=== PATIENT | female | born 1955 | race Caucasian/White ===

== ENCOUNTER → 2020-01-10 16:37 | Outpatient (CLI) | payer OTHER, SELFPAY ==
[2014-01-19 12:27] VITALS: BMI 39.7
--- NOTE | 2020-01-10 16:53 | RAD_ITS ---
STUDY: X-RAY - CERVICAL SPINE REASON FOR EXAM: Female, 64 years old. Fall TECHNIQUE: 4 view(s) of the cervical spine were obtained. COMPARISON: None FINDINGS: There is no evidence of fracture or dislocation in the cervical spine. The dens is intact. The vertebral body heights are well-maintained. There are mild degenerative changes with disc space narrowing and small osteophytes at C4/C5 and C5/C6. The prevertebral soft tissues are unremarkable. There is no radiodense foreign body. RAD/Cerv Spine 2 or 3 Views IMPRESSION: No fracture or dislocation in the cervical spine. Mild degenerative changes in the midcervical spine. Electronically Signed: Hussein Saldivar, at 17:55 EDT Tel , Service support ,
--- NOTE | 2020-01-10 17:00 | RAD_ITS ---
STUDY: X-RAY - RIGHT SHOULDER REASON FOR EXAM: Female, 64 years old. Fall TECHNIQUE: 4 view(s) of the shoulder. COMPARISON: None. FINDINGS: There is no evidence of fracture or dislocation. There are mild degenerative changes. There are no radiodense foreign bodies. RAD/Shoulder min 2 Views IMPRESSION: No fracture or dislocation in the right shoulder. Mild degenerative change. Electronically Signed: Hussein Saldivar, at 17:56 EDT Tel , Service support ,
[2020-01-10 17:04] LABS: Absolute Lymphocyte Count 1.72 X10^3/uL (0.83-4.51); Absolute Neutrophil Count 2.8 X10^3/uL (2.0-7.7); Basophil# 0.04 X10^3/uL; Basophil% 0.8 % (0-1); Eosinophil# 0.06 X10^3/uL; Eosinophils% 1.2 % (0-5); Hematocrit 34.8 % (37-47); Hemoglobin 10.6 g/dL (12.0-15.0); Lymphocyte # 1.72 X10^3/ul (4.0); Lymphocyte % 34.4 % (19-41); Mean Corp Hgb Conc 30.5 g/dL (32-36); Mean Corpuscular Hgb 25.7 pg (27.0-32.0); Mean Corpuscular Volume 84.3 fL (81-99); Mean Platelet Vol. 9.9 fl (6.2-12.0); Monocyte# 0.34 X10^3/uL; Monocyte% 6.8 % (0-10); NRBC Flagged by Analyzer 0 % (0-5); Neutrophil # 2.82 X10^3/uL (2.7-7.7); Neutrophil % 56.4 % (47-70); Platelet Count 291 K/mm3 (150-450); RBC Distribution Width CV 14.6 % (11.6-14.6); RBC Distribution Width SD 44.3 fl (35.1-43.9); Red Blood Count 4.13 M/mm3 (4.2-5.4)
[2020-01-10 18:09] LABS: ALB/GLOB Ratio 0.9 RATIO (0.9-2.4); AST(SGOT) 13 U/L (15-37); Alanine Aminotransfer ALT/SGPT 18 U/L (13-56); Albumin, Serum 3.6 g/dL (3.2-5.0); Alkaline Phosphatase 99 U/L (45-117); Anion Gap 8 (5-15); BUN 17 mg/dL (7-18); Calcium,Total 8.7 mg/dL (8.5-10.1); Chloride 106 mmol/L (98-107); Creatinine, Serum 1.13 mg/dL (0.55-1.02); EST Glomerular Filtration Rate 52 mL/min (>60); Est Glom Filt Rate - Afr Amer 63 mL/min (>60); Globulin 3.9 g/dL (2.2-4.2); Glucose 111 mg/dL (74-106); Potassium 3.7 mmol/L (3.5-5.1); Protein, Total 7.5 g/dL (6.4-8.2); Sodium Level 140 mmol/L (136-145); Thyroid Stim Hormone (TSH) 2.06 uIU/mL (0.358-3.74)
[2020-01-11 10:52] LABS: Hepatitis C Antibody Non-Reactive (Nonreactive); Vitamin D,25 Hydroxy 14.1 ng/mL
== END ==
LOC: POLAB3 16:40 → RAD 16:52
PROVIDERS: PCP Family Medicine Geriatric Medicine; Referring Provider Family Medicine Geriatric Medicine; Visit Provider Family Medicine Geriatric Medicine
DX: M54.2 Cervicalgia (principal); M25.519 Pain in unspecified shoulder; E55.9 Vitamin D deficiency, unspecified; I10 Essential (primary) hypertension; Z13.89 Encounter for screening for other disorder
CPT/HCPCS: 36415; 72040; 73030; 80053; 82306; 84443; 85025; 86803

== ENCOUNTER → 2020-01-11 | Outpatient (CLI) | payer OTHER, SELFPAY ==
--- NOTE | 2020-01-11 09:59 | CT_ITS ---
STUDY: CT BRAIN WITHOUT CONTRAST REASON FOR EXAM: Female, 64 years old. CLOSED HEAD INJURY. FALL 7 WEEKS AGO RADIATION DOSAGE (If Supplied By Facility): CTDIvol = ( 44.99 ) mGy, DLP = ( 829.85 ) mGycm TECHNIQUE: Transaxial CT imaging of the brain was performed without administration of intravenous contrast material. Individualized dose optimization techniques were used for this CT. COMPARISON: No relevant priors. FINDINGS: Normal soft tissue structures. Normal calvarium. There is mild cerebral atrophy with widening of the extra-axial spaces and ventricular dilatation. Normal white matter tracts of the cerebral hemispheres. Normal basal ganglia and thalami. Normal brainstem. Normal cerebellum. There is no intracranial hemorrhage. There are no findings of an acute ischemic infarction. Normal visualized paranasal sinuses. CT/Brain/Head without Contrast IMPRESSION: Chronic involutional changes of the brain. Electronically Signed: Sascha Hernandez, at 10:30 EDT , Service support ,
[2020-01-11 12:33] LABS: Platelet Count 338 K/mm3 (150-450); Reticulocyte Count 1.17 % (0.5-1.5)
[2020-01-11 12:48] LABS: Vitamin B12 436 pg/mL (211-911)
[2020-01-11 13:11] LABS: Ferritin 5 ng/mL (8-252); Iron 22 ug/dL (50-170); Iron Binding Capacity,Total 497 ug/dL (250-450); PERCENT IRON SATURATION 4.4 % (15.0-55.0)
== END | disposition home or self-care (01) ==
PROVIDERS: PCP Family Medicine Geriatric Medicine; Referring Provider Family Medicine Geriatric Medicine; Visit Provider Family Medicine Geriatric Medicine
DX: D50.9 Iron deficiency anemia, unspecified (principal); S09.90XA Unspecified injury of head, initial encounter
CPT/HCPCS: 36415; 70450; 82607; 82728; 82746; 83540; 83550; 85045

== ENCOUNTER → 2020-01-30 14:13 | Outpatient (CLI) | payer OTHER, SELFPAY ==
[2014-01-19 12:27] VITALS: BMI 39.7
--- NOTE | 2020-01-30 11:58 | LES_PTH ---
PATIENT: SHAHEEN JARRELL LOC: [facility] U#:[id number] AGE/SX: 69/F ROOM: RE01/30/[address]: Dr. Amrik Queen MD : 1955 BED: DIS: SPEC #: [id number] RECD: 01/30/20 16:54 STATUS: LONNY ESSIE #: [id number] NEPTALI: 01/30/20 11:[address]: Amrik Queen Chi DEPT: SURGICAL PATHOLOGY RECD BY: Maria Schaffer Tissues: Skin of chest Procedures: Surgery Specimen Level IV HEADER OPERATION: Biopsy PRE-OP DIAGNOSIS: L72.3 TISSUE SUBMITTED: Chest MICROSCOPIC DIAGNOSIS Skin lesion of chest, biopsy: Invasive squamous cell carcinoma with the follow characteristics: Type: Keratoacanthomatous. Maximal dimensions: 7 millimeters Margins: Lesion transected at base. See comment. AM:alexi 02/01/20 COMMENT Complete excision of lesion is recommended. Clinical correlation is suggested. MICROSCOPIC DESCRIPTION Slides are reviewed. GROSS DESCRIPTION Received in fixative is one container labeled with the patient's name and designated chest. The specimen consists of a round piece of membreno-white skin measuring 1 cm in diameter and 0.2 cm in thickness. The specimen is inked and submitted entirely in one cassette. It will be sectioned at the time of embedding. / SJ:rg 01/31/20 TC:0 CPT: 45835
[2020-01-30 17:11] LABS: Absolute Lymphocyte Count 2.25 X10^3/uL (0.83-4.51); Absolute Neutrophil Count 4.4 X10^3/uL (2.0-7.7); Basophil# 0.03 X10^3/uL; Basophil% 0.4 % (0-1); Eosinophil# 0.04 X10^3/uL; Eosinophils% 0.6 % (0-5); Hematocrit 35.3 % (37-47); Hemoglobin 10.6 g/dL (12.0-15.0); Lymphocyte # 2.25 X10^3/ul (4.0); Lymphocyte % 31.3 % (19-41); Mean Corpuscular Volume 83.3 fL (81-99); Mean Platelet Vol. 10.3 fl (6.2-12.0); Monocyte# 0.42 X10^3/uL; Monocyte% 5.8 % (0-10); NRBC Flagged by Analyzer 0 % (0-5); Neutrophil # 4.44 X10^3/uL (2.7-7.7); Neutrophil % 61.8 % (47-70); Platelet Count 317 K/mm3 (150-450); RBC Distribution Width CV 15.2 % (11.6-14.6); RBC Distribution Width SD 45.7 fl (35.1-43.9); Red Blood Count 4.24 M/mm3 (4.2-5.4); White Blood Count 7.2 K/mm3 (4.4-11.0)
== END ==
PROVIDERS: PCP Family Medicine Geriatric Medicine; Visit Provider Family Medicine Geriatric Medicine
DX: D50.9 Iron deficiency anemia, unspecified (principal); L72.3 Sebaceous cyst
CPT/HCPCS: 36415; 85025; 88305

== ENCOUNTER → 2020-03-05 12:18 | Outpatient (CLI) | payer OTHER, SELFPAY ==
[2014-01-19 12:27] VITALS: BMI 39.7
[2020-03-05 12:58] LABS: Absolute Lymphocyte Count 1.59 X10^3/uL (0.83-4.51); Absolute Neutrophil Count 3.7 X10^3/uL (2.0-7.7); Basophil# 0.06 X10^3/uL; Eosinophil# 0.03 X10^3/uL; Eosinophils% 0.5 % (0-5); Hemoglobin 12.5 g/dL (12.0-15.0); Lymphocyte # 1.59 X10^3/ul (4.0); Lymphocyte % 27.6 % (19-41); Mean Corp Hgb Conc 32.1 g/dL (32-36); Mean Corpuscular Volume 84.2 fL (81-99); Mean Platelet Vol. 9.7 fl (6.2-12.0); Monocyte# 0.37 X10^3/uL; Monocyte% 6.4 % (0-10); NRBC Flagged by Analyzer 0 % (0-5); Neutrophil # 3.69 X10^3/uL (2.7-7.7); POSITIVE MORPHOLOGY YES; Platelet Count 255 K/mm3 (150-450); RBC Distribution Width CV 21.2 % (11.6-14.6); RBC Distribution Width SD 59.4 fl (35.1-43.9); Red Blood Count 4.63 M/mm3 (4.2-5.4); White Blood Count 5.8 K/mm3 (4.4-11.0)
[2020-03-05 12:59] LABS: Differential Indicated SCAN CRITERIA MET
[2020-03-05 13:27] LABS: Anisocytosis 1+; Platelet Estimate ADEQUATE (ADEQ); Red Cell Morphology N CHROM NORMAL (NORM C&C)
== END ==
PROVIDERS: PCP Family Medicine Geriatric Medicine; Visit Provider Family Medicine Geriatric Medicine
DX: D50.9 Iron deficiency anemia, unspecified (principal)
CPT/HCPCS: 36415; 85025

== ENCOUNTER → 2020-04-11 13:58 | Outpatient (CLI) | payer OTHER, SELFPAY ==
[2014-01-19 12:27] VITALS: BMI 39.7
[2020-04-11 15:40] LABS: Ferritin 5 ng/mL (8-252); Iron 30 ug/dL (50-170)
[2020-04-13 16:08] LABS: Endomysial Antibody IgA Negative (Negative)
[2020-04-13 17:42] LABS: Immunoglobulin A 358 mg/dL (87-352); t-Transglutaminase IgA <2 U/mL (0-3)
== END ==
PROVIDERS: PCP Family Medicine Geriatric Medicine; Referring Provider Internal Medicine Gastroenterology; Visit Provider Internal Medicine Gastroenterology
DX: D50.9 Iron deficiency anemia, unspecified (principal)
CPT/HCPCS: 36415; 82728; 82784; 83516; 83540; 86255

== ENCOUNTER → 2020-04-19 13:18 | Outpatient (CLI) | payer OTHER, SELFPAY ==
[2014-01-19 12:27] VITALS: BMI 39.7
[2020-04-19 17:16] LABS: Absolute Lymphocyte Count 1.94 X10^3/uL (0.83-4.51); Absolute Neutrophil Count 3.8 X10^3/uL (2.0-7.7); Basophil# 0.04 X10^3/uL; Basophil% 0.6 % (0-1); Eosinophil# 0.08 X10^3/uL; Eosinophils% 1.3 % (0-5); Hematocrit 39.4 % (37-47); Hemoglobin 11.8 g/dL (12.0-15.0); Lymphocyte # 1.94 X10^3/ul (4.0); Lymphocyte % 31.1 % (19-41); Mean Corp Hgb Conc 29.9 g/dL (32-36); Mean Corpuscular Hgb 26.2 pg (27.0-32.0); Mean Corpuscular Volume 87.4 fL (81-99); Mean Platelet Vol. 10.2 fl (6.2-12.0); Monocyte# 0.38 X10^3/uL; Monocyte% 6.1 % (0-10); NRBC Flagged by Analyzer 0 % (0-5); Neutrophil # 3.79 X10^3/uL (2.7-7.7); Neutrophil % 60.7 % (47-70); Platelet Count 289 K/mm3 (150-450); RBC Distribution Width CV 18.2 % (11.6-14.6); RBC Distribution Width SD 58.3 fl (35.1-43.9); Red Blood Count 4.51 M/mm3 (4.2-5.4); White Blood Count 6.2 K/mm3 (4.4-11.0)
[2020-04-19 17:47] LABS: ALB/GLOB Ratio 0.9 RATIO (0.9-2.4); AST(SGOT) 11 U/L (15-37); Alanine Aminotransfer ALT/SGPT 20 U/L (13-56); Albumin, Serum 3.3 g/dL (3.2-5.0); Alkaline Phosphatase 104 U/L (45-117); Anion Gap 5 (5-15); BUN 18 mg/dL (7-18); BUN/Creat Ratio 17.8 RATIO (10-20); Calcium,Total 8.8 mg/dL (8.5-10.1); Chloride 107 mmol/L (98-107); Creatinine, Serum 1.01 mg/dL (0.55-1.02); EST Glomerular Filtration Rate 59 mL/min (>60); Est Glom Filt Rate - Afr Amer 71 mL/min (>60); Globulin 3.6 g/dL (2.2-4.2); Glucose 116 mg/dL (74-106); Potassium 3.9 mmol/L (3.5-5.1); Protein, Total 6.9 g/dL (6.4-8.2); Sodium Level 140 mmol/L (136-145); Thyroid Stim Hormone (TSH) 1.52 uIU/mL (0.358-3.74)
== END ==
PROVIDERS: PCP Family Medicine Geriatric Medicine; Visit Provider Family Medicine Geriatric Medicine
DX: I10 Essential (primary) hypertension (principal)
CPT/HCPCS: 36415; 80053; 84443; 85025

== ENCOUNTER → 2020-04-20 | Outpatient (CLI) | payer OTHER, SELFPAY ==
[2014-01-19 12:27] VITALS: BMI 39.7
== END | disposition home or self-care (01) ==
LOC: LABSPEC 17:23
PROVIDERS: PCP Family Medicine Geriatric Medicine; Referring Provider Internal Medicine Gastroenterology; Visit Provider Internal Medicine Gastroenterology
DX: Z11.52 Encounter for screening for COVID-19 (principal)
CPT/HCPCS: 87635; C9803; U0005; U0003

== ENCOUNTER → 2020-05-23 13:24 | Outpatient (CLI) | payer OTHER, SELFPAY ==
[2014-01-19 12:27] VITALS: BMI 39.7
[2020-05-23 17:28] LABS: Absolute Lymphocyte Count 1.82 X10^3/uL (0.83-4.51); Absolute Neutrophil Count 2.8 X10^3/uL (2.0-7.7); Basophil# 0.03 X10^3/uL; Basophil% 0.6 % (0-1); Eosinophil# 0.07 X10^3/uL; Eosinophils% 1.4 % (0-5); Hemoglobin 12.9 g/dL (12.0-15.0); Lymphocyte # 1.82 X10^3/ul (4.0); Lymphocyte % 35.5 % (19-41); Mean Corp Hgb Conc 30.7 g/dL (32-36); Mean Corpuscular Hgb 28.1 pg (27.0-32.0); Mean Corpuscular Volume 91.5 fL (81-99); Mean Platelet Vol. 10.2 fl (6.2-12.0); Monocyte# 0.39 X10^3/uL; Monocyte% 7.6 % (0-10); NRBC Flagged by Analyzer 0 % (0-5); Neutrophil # 2.81 X10^3/uL (2.7-7.7); Neutrophil % 54.7 % (47-70); Platelet Count 237 K/mm3 (150-450); RBC Distribution Width CV 15.9 % (11.6-14.6); RBC Distribution Width SD 53.4 fl (35.1-43.9); Red Blood Count 4.59 M/mm3 (4.2-5.4); White Blood Count 5.1 K/mm3 (4.4-11.0)
== END ==
PROVIDERS: PCP Family Medicine Geriatric Medicine; Visit Provider Family Medicine Geriatric Medicine
DX: D50.9 Iron deficiency anemia, unspecified (principal)
CPT/HCPCS: 36415; 85025

== ENCOUNTER → 2020-06-21 15:05 | Outpatient (CLI) | payer OTHER, SELFPAY ==
--- NOTE | 2020-06-21 15:09 | MRI_ITS ---
STUDY: MRI RIGHT SHOULDER REASON FOR EXAM: Right shoulder pain, unable to raise right arm, right shoulder injury from fall 9 months ago. TECHNIQUE: Standardized fat and water weighted pulse sequences were obtained in all 3 orthogonal planes. COMPARISON: Radiographs 01/10/2020. FINDINGS: There is a full-thickness tear of the supraspinatus tendon (T2 coronal images 12-14) measuring approximately 2.4 x 1.2 cm (length x width). There is tendinosis of the infraspinatus and posterior supraspinatus tendons (T2 sagittal images 8, 9) without discrete tear of the infraspinatus tendon. There is mild subscapularis tendinosis and a small intrasubstance partial thickness tear of the distal subscapularis tendon (proton-density axial image 14) measuring 0.6 cm in length. Normal teres minor tendon. There is mild atrophy with mild partial fat replacement of the supraspinatus muscle (T2 axial image 7). There is mild atrophy with mild partial fat replacement of the infraspinatus muscle (T2 axial images 10-12). Normal subscapularis muscle. Normal teres minor muscle. Normal glenohumeral articulation. There is mild cystic change of the greater tuberosity. There is a suspected SLAP lesion (proton-density coronal image 11). There is tendinosis of the intracapsular long biceps tendon (T2 sagittal images 12-16). Normal capsulo- ligamentous complex. There is acromioclavicular arthrosis with undersurface osteophytes of the distal clavicle effacing the subacromial fat (T2 sagittal image 15). There is a Type III morphology (anterior hook) (T2 sagittal image 11), with a neutral orientation. There is a small volume of subacromial-subdeltoid and subcoracoid bursal fluid. Normal visualized coracohumeral and coracoacromial ligaments. Normal deltoid muscle. Normal trapezius muscle. MRI/Upper Ext Joint Only(Routine) IMPRESSION: Full-thickness tear and tendinosis of the supraspinatus tendon. Small intrasubstance partial-thickness tear and mild tendinosis of the subscapularis tendon. Infraspinatus tendinosis. Mild atrophy of the supraspinatus and infraspinatus muscles. Tendinosis of the long biceps tendon. Suspected SLAP lesion. Acromioclavicular arthrosis. Small volume of subacromial-subdeltoid and subcoracoid bursal fluid. Electronically Signed: Jose Mckeon MD at 7:52 EDT Tel , Service support ,
== END ==
LOC: MRI 15:09
PROVIDERS: PCP Family Medicine Geriatric Medicine; Referring Provider Orthopaedic Surgery; Visit Provider Orthopaedic Surgery
DX: M25.311 Other instability, right shoulder (principal)
CPT/HCPCS: 73221

== ENCOUNTER 2020-07-17 10:08 | Day surgery (SDC) | payer OTHER, SELFPAY ==
[2020-07-13 09:39] LABS: Hematocrit 41.5 % (37-47); Hemoglobin 13.4 g/dL (12.0-15.0); Mean Corp Hgb Conc 32.3 g/dL (32-36); Mean Corpuscular Hgb 29.7 pg (27.0-32.0); Mean Platelet Vol. 10.2 fl (6.2-12.0); Platelet Count 260 K/mm3 (150-450); RBC Distribution Width CV 13.8 % (11.6-14.6); RBC Distribution Width SD 46.5 fl (35.1-43.9); Red Blood Count 4.51 M/mm3 (4.2-5.4); White Blood Count 5.3 K/mm3 (4.4-11.0)
--- NOTE | 2020-07-13 09:39 | EKG12_ITS ---
Test Reason : PREOP Blood Pressure : / mmHG Vent. Rate : 063 BPM Atrial Rate : 063 BPM P-R Int : 176 ms QRS Dur : 078 ms QT Int : 410 ms P-R-T Axes : 008 012 020 degrees QTc Int : 419 ms Normal sinus rhythm Normal ECG Confirmed by KALA JASMINE, ROSIO ([id number]), editorial cartoonist STEVEN SOLER ([id number]) on 07/16/2020 12:29:47 PM Referred By: Cyrus Nolasco Confirmed By:ROSIO ARMENDARIZ MD
[2020-07-13 09:50] LABS: Prothrombin Time (Protime)PT. 12.7 SECONDS (11.7-14.9)
[2020-07-13 09:51] LABS: Partial Thromboplast Time 25.6 Seconds (24.1-36.2)
[2020-07-17] VITALS (8 sets, daily range): BP systolic 95–132; BP diastolic 63–96; PULSE 81–88; RESP 16; TEMP 36–36.7; O2SAT 88–99; BMI 35.9
[2020-07-17] MEDS: Lactated Ringers 1,000 ML 100 ML IV (10:53)
--- NOTE | 2020-07-17 11:34 | CONS.ORTHO ---
HPI Consult Data Date of Consult: 07/17/20 HPI Narrative HPI Narrative: SHAHEEN JARRELL, is a 65 F who presents [facility] Medical History (Updated 07/12/20 @ 14:11 by Nora Iglesias) Anxiety CPAP (continuous positive airway pressure) dependence Depression GERD (gastroesophageal reflux disease) GI bleed Hiatal hernia HTN (hypertension) Post-menopausal Sleep apnea Ulcer Wears glasses Home Medications lisinopril-hydrochlorothiazide 1 tablet PO DAILY 01/04/14 [History Last Taken 07/17/20 08:00] pantoprazole [Protonix] 40 mg PO DAILY 01/04/14 [History Last Taken 07/17/20 08:00] citalopram 20 mg tablet 1 tablet PO DAILY 06/06/20 [History Last Taken 07/17/20 08:00] ferrous sulfate-vitamin C 1 cap PO DAILY 07/12/20 [History Last Taken Unknown] loperamide 2 mg PO DAILY 07/12/20 [History Last Taken Unknown] meloxicam [Mobic] 15 mg PO DAILY PRN 07/12/20 [History Last Taken Unknown] Allergy/AdvReac Type Severity Reaction Status Date / Time Sulfa (Sulfonamide AdvReac Severe itching Verified 07/17/20 10:48 Antibiotics) Surgical History (Updated 07/12/20 @ 14:04 by Nora Iglesias) History of cholecystectomy Hx of hysterectomy Hx of knee surgery Social History (Updated 07/04/20 @ 13:[address] Cyrus Nolasco, ) Smoking Status: Never smoker ROS Respiratory/Chest Respiratory/Chest: Denies shortness of breath at rest Gastrointestinal Gastrointestinal: Denies nausea or vomiting Integumentary Integumentary: Denies rash Neurologic Neurologic: Denies headache(s) Vital Signs Vital Signs Vital Signs: 07/17/20 10:41 Temperature 96.8 F L Temperature Source Temporal Pulse Rate 81 Respiratory Rate 16 Respiratory Pattern Normal Blood Pressure 132/96 H Blood Pressure Mean 108 Blood Pressure Source Monitor Blood Pressure Position Sitting Blood Pressure Location Left Arm Pulse Ox 99 Oxygen Delivery Method Room Air Lab / Micro Data Result Diagrams: 07/13/20 09:06
[2020-07-17] MEDS: Bupiv/Epi 0.25% 30 ML Vial (11:40)
--- NOTE | 2020-07-17 11:40 | PCM.HP.BLA ---
History and Physical Date of Admission: 07/17/20 [id number]:[id number]: SHAHEEN JARRELL #:[id number]:1955 Provider:Dr. Cyrus Nolasco DOAge/Sex: 65/F [facility] [place]Signed Intake Intake Visit Reasons: right shoulder Allergies Sulfa (Sulfonamide Antibiotics) Adverse Reaction (Severe, Verified 06/06/20 10:30) itching PFSH Medical History (Updated 06/06/20 @ 10:31 by Bety Day) HTN (hypertension) (Chronic) Surgical History (Updated 06/06/20 @ 10:31 by Bety Day) Hx of hysterectomy (Acute) Social History (Updated 07/04/20 @ 13:[address] Cyrus Nolasco DO) Smoking Status: Never smoker HPI right shoulder: Details: Parts of this documentation were recorded by a scribe, this documentation accurately reflects the service provided and the decisions made by me, Dr. Cyrus Nolasco DO 07/04/20 3680. SHAHEEN JARRELL is a 65 year old F here today for F/U on right shoulder after having MRI completed. Patient continues to have right shoulder pain over the lateral and anterior shoulder she states this pain occasionally radiated past the elbow and does radiate into her neck at times. She also states that cervical rotation does cause some pain into her arm at times. Pain as worsened. Ortho Exam General General: Yes no acute distress Neurologic: Yes alert, Yes oriented x3 Psychologic: Yes reasonable and appropriate Right Shoulder Skin/Wound: No ecchymosis, No erythema, No swelling Testing: Positive Neer's and TTP Biceps; negative TTP AC Joint SHOULDER: 90 active forward elevation full passive forward elevation 90 active abduction full passive abduction Supplemental Info 06/21/2020 MRI right shoulder: Full-thickness tear and tendinosis of supraspinatus small intrasubstance tearing of the subscapularis infraspinatus tendinosis mild atrophy of the supraspinatus and infraspinatus muscles tendinosis of the biceps with suspected SLAP tear AC joint arthrosis and subdeltoid bursitis Assessment & Plan Problems 1. Traumatic complete tear of right rotator cuff, subsequent encounter S46.011D 2. Tear of biceps tendon S46.219A 3. Impingement syndrome of right shoulder M75.41 4. Degenerative disc disease, cervical M50.30 Plan Obtained X-rays of patient's right shoulder and cervical spine. Personally reviewed x-rays. There is no obvious fracture, dislocation, or lucency noted. Personally reviewed patients MRI of the right shoulder. Patient educated that she does have arthritis under her collar bone along with a RTC tear which is torn off the bone along with some possible biceps tearing. She also may have a labrum tear which is the cause of the shoulder pain. Educated that she also has DDD of the cervical spine and this is cuasing some arm pain and some cervical pain. Recommended a right shoulder scope for RTC repair, biceps tenodesis and debridement but she would be unable to actively lift the shoulder for 6 weeks post op. She can also see pain management for cervical injection for the neck pain. Reviewed the pre-operative plans with the patient. Risks and benefits of the procedure were fully explained, including but not limited to infection, neurovascular injury, continued pain, arthritis, stiffness, need for further surgery, re-injury, DVT, PE, general risks of anesthesia, and loss of limb or life. The patient understands all the risks and does wish to proceed with written consent. She will have swelling after surgery in the arm and chest. We can provide her with a work note for limited use of right arm. Follow up 2 weeks post op or sooner if pain, swelling, numbness or associated symptoms, or concerns develop. All questions answered. Patient in agreement of plan. Coding Level of Care Code Off vis,est,level 3 Diagnoses Traumatic complete tear of right rotator cuff, subsequent encounter S46.011D Rotator cuff tear extent: complete Rotator cuff tear trauma status: traumatic Encounter type: subsequent encounter Tear of biceps tendon S46.219A Impingement syndrome of right shoulder M75.41 Degenerative disc disease, cervical M50.30 07/04/20 1343<Electronically signed by Cyrus Nolasco DO>Date Cyrus Nolasco DO I have re-examined the patient. There are no clinical changes since date of exam
--- NOTE | 2020-07-17 11:53 | EX.PCM.DISCH ---
Discharge Instructions Outpatient Procedure Reason For Visit: R SHLDR ARTHROSCOPY RC REPAIR SUBACROMIAL DECOMPRE Procedure: Total Knee Diet Discharge Diet: No restrictions Activity Discharge Activity: May Not Drive May shower in (days): 2 Ice area for (Minutes): 20 (every hour while awake.) Weight Bearing Status: Weight bearing as tolerated Keep extremity elevated above heart level: Operative Extremity Additional Activity Instructions:: Wear elastic stockings for 2 weeks after your surgery. Dressing / Incision Call your doctor if your incision/area has: Continuous Slow Oozing, Sudden Increased Bleeding, Increased Pain/ Swelling, Increased Redness and Foul Smelling Discharge Call your doctor if you observe: Fever of 101 or Higher, Coldness, Increased Pain, Numbness or Tingling, Change in Color, Calf discomfort and Uncontrolled pain Change Dressing in: 1 day (and daily as needed.) Follow Up Care Test Results: Test results from this visit will be discussed in further detail at your follow-up appointment, if applicable. Discharge Plan Admission Attending Provider: Cyrus Nolacso Primary Care Provider: Amrik Queen Chi Consulting Providers: Clemente Gao Discharge Orders/Prescriptions Prescriptions: No Action citalopram 20 mg tablet 1 tablet PO DAILY RF: 0 lisinopril-hydrochlorothiazide 1 TABLET tablet 1 tablet PO DAILY RF: 0 pantoprazole [Protonix] 40 MG tablet 40 mg PO DAILY RF: 0 loperamide 2 mg capsule 2 mg PO DAILY RF: 0 meloxicam [Mobic] 15 mg tablet 15 mg PO DAILY PRN (Reason: Pain) RF: 0 ferrous sulfate-vitamin C 65-150 mg Capsule, Extended Release 1 cap PO DAILY RF: 0 Other Ambulatory Orders: 12 Lead EKG (Routine) Location: None Selected Ordered By: Dr. Clemente Gao Referrals: Amrik Queen Chi, MD [Primary Care Provider] -
[2020-07-17] MEDS: Epinephrine (1 mg/ml) 1 MG/ML VIAL (12:11)
[2020-07-17] MEDS: Cefazolin 2 GM in 0.9% Normal Saline 100 ML IV (12:11)
--- NOTE | 2020-07-17 13:56 | OP.PCM_ITS ---
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 anterior acromial spurring. Procedure: Arthroscopic subscapularis and supraspinatus rotator cuff repair, biceps tenotomy, labral debridement, SAD, Implants: Arthrex speed bridge 4 anchor pair, plus 4.5x28 pushlock Anesthesia: General with interscalane block EBL: 25 cc Complications none Indication for procedure: This is a 65 year old female with ongoing right should er pain and weakness who has failded conservative treatment who had an MRI of rotator cuff tear and aforementioned findings risks benefits and alternatives of the procedure were reviewed including risk of bleeding infection nerve artery tissue damage need for further surgery continued pain postoperative stiffness and need for postoperative physical therapy and continued pain and retear. Procedure: Patient was met in the preoperative holding area the operative extremity was identified by both the patient and the physician and was marked. Patient was met by anesthesia and brought back to the operating room on a wheeled cart. Patient was transferred to the operating table in the supine position. Anesthesia was started. Patient was then positioned in the beach chair configuration. Bony prominences were well-padded. The patient was prepped and draped in the usual sterile fashion. A timeout was called to ensure the proper patient procedure and extremity were being contemplated. Anatomic landmarks were palpated and marked with a marking pen. A 0.25% Marcaine with epinephrine was injected into the planned portal sites. An 11 blade scalpel was used to make a stab incision in the posterior lateral portal. Arthroscope was inserted into the glenohumeral space with ease. Inflow and outflow tubes were attached and arthroscopic visualization began. An anterior portal was esta blished with an 18-gauge spinal needle. There was significant cartilage wear of the humeral head and glenoid in addition there was significant degenerative tearing of the labrum and tendinopathy of the biceps tendon. With the use of the ArthroCare wand a biceps tenotomy was performed. The upper border of the subscapularis had some tearing and it was felt best to be repaired with a 4.5 push lock in a cinch stitch the rotator cuff was evaluated and was found to have a full-thickness tear of supraspinatus . The axillary pouch was investigated and was free of loose bodies. The arthroscope was then repositioned into the subacromial space and a lateral portal was established. A subacromial decompression with an ArthroCare wand and shaver/humphrey was performed. There was noted to be anterior spurring of the acromion which was burred to create a flat surface. Performing an anterior acromioplasty. [The bursal side of the rotator cuff was evaluated . Using standard speed bridge fashion 2 medial anchors were placed passes of the rotator cuff were performed then in standard fashion the posterior limb of each of these anchors were secured to a posterior lateral anchor and were tapped into place under tension this was repeated for the anterior 2 limbs. Excellent repair was achieved. The wound was thoroughly irrigated through the scope followed by a subacromial injection with and 8 cc of 0.5% Marcaine plain. Suture portals were closed with 3-0 nylon arthroscopic stitches followed by Xeroform 4 x 4 ABD and a Ioban dressing. A abduction sling and pillow was placed. Anesthesia was reversed and patient tolerated the procedure well was and was transferred to the PACU. All counts were correct patient will follow-up in the office in 2 weeks . Patient may begin active elbow and wrist range of motion and pendulums of the shoulder but no active shoulder motion, dressing is to be left on for 48 hours before being changed daily after showering Description of Surgical Findings::
--- NOTE | 2020-07-17 14:14 | PCM.DC ---
Discharge Instructions Outpatient Procedure Reason For Visit: R SHLDR ARTHROSCOPY RC REPAIR SUBACROMIAL DECOMPRE Diet Discharge Diet: No restrictions Dressing / Incision Additional Dressing/Incision Instructions:: Leave the dressing on and intact for 48 hours. . Then may remove and shower with warm water and antibacterial soap. But do not submerge in tub for 3 weeks. Ice shoulder 15 min on and 15 mins off next 72 hrs. May remove sling for elbow range of motion and pendulum exercises only then replace sling. Absolutely no active shoulder motion. Do not lift push pull at all with operative extremity . Encourage finger and wrist range of motion. Doxycycline antibiotic has been shown to aid in rotator cuff healing please take as directed . If any concerns call Dr. Nolasco's office. Follow Up Care Please Follow Up With: Cyrus Nolasco DO When: 2 weeks Test Results: Test results from this visit will be discussed in further detail at your follow-up appointment, if applicable. Discharge Plan Admission Attending Provider: Cyrus Nolasco Primary Care Provider: Amrik Queen Chi Consulting Providers: Clemente Gao Discharge Orders/Prescriptions Prescriptions: New oxycodone 5 mg capsule 5 - 10 mg PO Q4H PRN (Reason: pain) 7 Days Qty: 50 RF: 0 No Action citalopram 20 mg tablet 1 tablet PO DAILY RF: 0 lisinopril-hydrochlorothiazide 1 TABLET tablet 1 tablet PO DAILY RF: 0 pantoprazole [Protonix] 40 MG tablet 40 mg PO DAILY RF: 0 loperamide 2 mg capsule 2 mg PO DAILY RF: 0 meloxicam [Mobic] 15 mg tablet 15 mg PO DAILY PRN (Reason: Pain) RF: 0 ferrous sulfate-vitamin C 65-150 mg Capsule, Extended Release 1 cap PO DAILY RF: 0 Other Ambulatory Orders: 12 Lead EKG (Routine) Location: None Selected Ordered By: Dr. Clemente Gao Referrals: Amrik Queen Chi, MD [Primary Care Provider] - Disposition Discharge Orders: Discharge Patient (Routine); Ordered 07/17/20 Ordered By: Dr. Cyrus Nolasco
[2020-07-17] MEDS: Cefazolin 1 GM/50 ML BAG IV (15:56)
== END 2020-07-17 16:15 | disposition home or self-care (01) ==
LOC: SDC 10:09 → AC 10:09
PROVIDERS: Anesthesiology; PCP Family Medicine Geriatric Medicine; Referring Provider Orthopaedic Surgery; Visit Provider Orthopaedic Surgery
PROC: (CPT 29827; principal; 2020-07-17 11:55)
DX: S43.431A Superior glenoid labrum lesion of right shoulder, initial encounter (principal); S46.011A Strain of muscle(s) and tendon(s) of the rotator cuff of right shoulder, initial encounter; S46.211A Strain of muscle, fascia and tendon of other parts of biceps, right arm, initial encounter; M94.211 Chondromalacia, right shoulder; M75.41 Impingement syndrome of right shoulder; M50.30 Other cervical disc degeneration, unspecified cervical region; I10 Essential (primary) hypertension; F41.9 Anxiety disorder, unspecified; F32.9 Major depressive disorder, single episode, unspecified; K21.9 Gastro-esophageal reflux disease without esophagitis; Z79.899 Other long term (current) drug therapy
CPT/HCPCS: 01630; 29826; 29827; 29828; 36415; 85027; 85610; 85730; 93005; J7120; J2405

== ENCOUNTER → 2020-10-24 12:01 | Outpatient (CLI) | payer OTHER, SELFPAY ==
[2020-07-17 10:41] VITALS: BMI 35.9
[2020-10-24 12:43] LABS: Absolute Lymphocyte Count 1.93 X10^3/uL (0.83-4.51); Absolute Neutrophil Count 4.7 X10^3/uL (2.0-7.7); Basophil# 0.04 X10^3/uL; Basophil% 0.6 % (0-1); Eosinophil# 0.05 X10^3/uL; Eosinophils% 0.7 % (0-5); Hematocrit 44.4 % (37-47); Hemoglobin 14.2 g/dL (12.0-15.0); Lymphocyte # 1.93 X10^3/ul (0.83-4.51); Lymphocyte % 27.2 % (19-41); Mean Corpuscular Hgb 29.6 pg (27.0-32.0); Mean Corpuscular Volume 92.7 fL (81-99); Mean Platelet Vol. 10.8 fl (6.2-12.0); Monocyte# 0.37 X10^3/uL; Monocyte% 5.2 % (0-10); NRBC Flagged by Analyzer 0 % (0-5); Neutrophil # 4.68 X10^3/uL (2.7-7.7); Platelet Count 224 K/mm3 (150-450); RBC Distribution Width CV 13.5 % (11.6-14.6); RBC Distribution Width SD 46.7 fl (35.1-43.9); Red Blood Count 4.79 M/mm3 (4.2-5.4); White Blood Count 7.1 K/mm3 (4.4-11.0)
[2020-10-24 13:26] LABS: ALB/GLOB Ratio 0.8 RATIO (0.9-2.4); AST(SGOT) 9 U/L (15-37); Alanine Aminotransfer ALT/SGPT 18 U/L (13-56); Albumin, Serum 3.4 g/dL (3.2-5.0); Alkaline Phosphatase 116 U/L (45-117); Anion Gap 6 (5-15); BUN 15 mg/dL (7-18); Calcium,Total 8.8 mg/dL (8.5-10.1); Chloride 109 mmol/L (98-107); Creatinine, Serum 0.94 mg/dL (0.55-1.02); EST Glomerular Filtration Rate 64 mL/min (>60); Est Glom Filt Rate - Afr Amer 77 mL/min (>60); Globulin 4.1 g/dL (2.2-4.2); Glucose 111 mg/dL (74-106); Protein, Total 7.5 g/dL (6.4-8.2); Sodium Level 141 mmol/L (136-145); Thyroid Stim Hormone (TSH) 1.22 uIU/mL (0.358-3.74)
== END ==
PROVIDERS: PCP Family Medicine Geriatric Medicine; Visit Provider Family Medicine Geriatric Medicine
DX: I10 Essential (primary) hypertension (principal); N39.0 Urinary tract infection, site not specified
CPT/HCPCS: 36415; 80053; 84443; 85025; 87086; 87088; 87186

== ENCOUNTER → 2021-02-04 15:13 | Outpatient (CLI) | payer OTHER, SELFPAY ==
[2021-02-04 15:37] LABS: Absolute Lymphocyte Count 2.15 X10^3/uL (0.83-4.51); Absolute Neutrophil Count 3.6 X10^3/uL (2.0-7.7); Basophil# 0.04 X10^3/uL; Basophil% 0.6 % (0-1); Eosinophil# 0.07 X10^3/uL; Eosinophils% 1.1 % (0-5); Hematocrit 40.5 % (37-47); Hemoglobin 13.4 g/dL (12.0-15.0); Lymphocyte # 2.15 X10^3/ul (0.83-4.51); Lymphocyte % 34.8 % (19-41); Mean Corp Hgb Conc 33.1 g/dL (32-36); Mean Corpuscular Hgb 30.2 pg (27.0-32.0); Mean Corpuscular Volume 91.4 fL (81-99); Mean Platelet Vol. 10.1 fl (6.2-12.0); Monocyte# 0.33 X10^3/uL; Monocyte% 5.3 % (0-10); NRBC Flagged by Analyzer 0 % (0-5); Neutrophil # 3.58 X10^3/uL (2.7-7.7); Platelet Count 259 K/mm3 (150-450); RBC Distribution Width CV 12.9 % (11.6-14.6); RBC Distribution Width SD 43.3 fl (35.1-43.9); Red Blood Count 4.43 M/mm3 (4.2-5.4); White Blood Count 6.2 K/mm3 (4.4-11.0)
--- NOTE | 2021-02-04 16:06 | RAD_ITS ---
STUDY: X-RAY - RIGHT KNEE REASON FOR EXAM: Female, 65 years old. Knee pain. TECHNIQUE: 3 view(s) of the knee. COMPARISON: None. FINDINGS: Osteopenia. Mild medial compartmental arthrosis with small osteophytes. Mild arthrosis of the lateral compartment. Moderate arthrosis of the patellofemoral compartment. The soft tissue structures are unremarkable. RAD/Knee 3 Views IMPRESSION: Osteopenia with tricompartmental arthrosis. No acute finding or erosive changes. Electronically Signed: Bin Bianchi MD at 10:18 EST , Service support ,
[2021-02-04 16:08] LABS: ALB/GLOB Ratio 0.8 RATIO (0.9-2.4); AST(SGOT) 11 U/L (15-37); Alanine Aminotransfer ALT/SGPT 17 U/L (13-56); Albumin, Serum 3.3 g/dL (3.2-5.0); Alkaline Phosphatase 96 U/L (45-117); Anion Gap 6 (5-15); BUN 19 mg/dL (7-18); BUN/Creat Ratio 21.6 RATIO (10-20); Calcium,Total 9.2 mg/dL (8.5-10.1); Chloride 108 mmol/L (98-107); Creatinine, Serum 0.88 mg/dL (0.55-1.02); EST Glomerular Filtration Rate 69 mL/min (>60); Est Glom Filt Rate - Afr Amer 83 mL/min (>60); Globulin 4.1 g/dL (2.2-4.2); Glucose 101 mg/dL (74-106); Potassium 3.9 mmol/L (3.5-5.1); Protein, Total 7.4 g/dL (6.4-8.2); Sodium Level 140 mmol/L (136-145); Thyroid Stim Hormone (TSH) 1.32 uIU/mL (0.358-3.74)
[2021-02-04 16:30] LABS: Vitamin D,25 Hydroxy 11.1 ng/mL
== END ==
PROVIDERS: PCP Family Medicine Geriatric Medicine; Referring Provider Family Medicine Geriatric Medicine; Visit Provider Family Medicine Geriatric Medicine
DX: I10 Essential (primary) hypertension (principal); E55.9 Vitamin D deficiency, unspecified; M25.561 Pain in right knee
CPT/HCPCS: 36415; 73562; 80053; 82306; 84443; 85025

== ENCOUNTER 2021-04-03 14:52 | Outpatient (CLI) | payer OTHER, SELFPAY ==
--- NOTE | 2021-04-03 16:12 | RAD_ITS ---
STUDY: XR Chest 2 Views 04/03/2021 4:19 PM REASON FOR EXAM: Female, 66 years old. CHEST PAIN SOB COMPARISON: None TECHNIQUE: XR Chest 2 Views FINDINGS: There is no demonstrated pleural abnormality. There is a hiatal hernia. Right humeral anchors. Normal heart size. Normal mediastinum. Normal dorcas. Prominent appearing increased interstitial lung markings. Normal visualized pulmonary arteries. There is atherosclerotic calcification of the aortic arch with tortuosity. There are diffuse degenerative changes of the visualized thoracic spine. There is degenerative osteoarthritis of the bilateral shoulders. There is no demonstrated abnormality of the visualized soft tissue structures of the upper abdomen. RAD/Chest PA and Lateral IMPRESSION: There are no acute findings. Electronically Signed: Roc Grossman MD at 16:27 EST , Service support ,
[2021-04-03 18:31] LABS: D-Dimer Quantitative (DVT/PE) 1.07 FEU/ug/m (0.27-0.49)
== END 2021-04-03 23:59 | disposition short-term general hospital (02) ==
LOC: POLAB3 14:53 → RAD 16:08
PROVIDERS: PCP Family Medicine Geriatric Medicine; Referring Provider Family Medicine Geriatric Medicine; Visit Provider Family Medicine Geriatric Medicine
DX: R06.02 Shortness of breath (principal)
CPT/HCPCS: 36415; 71046; 85379

== ENCOUNTER 2021-04-04 12:49 | Outpatient (CLI) | payer OTHER, SELFPAY ==
--- NOTE | 2021-04-04 12:58 | CT_ITS ---
STUDY: CTA CHEST REASON FOR EXAM: Female, 66 years old. ABN. COAGULATION PROFILE. Elevated d-dimer. Shortness of breath. RADIATION DOSAGE (If Supplied By Facility): CTDIvol = ( 11.09 ) mGy, DLP = ( 546.51 ) mGycm TECHNIQUE: The examination was performed with the intravenous administration of IV 100mL Isovue-370. Post-processing of the angiographic images was performed, with multiplanar reformation and 3D reconstruction. Individualized dose optimization techniques were used for this CT. COMPARISON: None. FINDINGS: Normal enhancement of the main pulmonary artery and right and left pulmonary arteries. Normal enhancement of the bilateral peripheral pulmonary arteries. There is no demonstrated pulmonary embolism. Normal thoracic aorta and visualized great vessels. There is no demonstrated aortic dissection. Normal heart and pericardium. Normal mediastinum. Normal hilar regions. Normal visualized trachea and bronchi. The lungs are well expanded. No evidence of a focal area of scarring or bronchiectasis along the anterior aspect of the right lower lobe adjacent to the right major fissure. Minimal increased markings in the right middle lobe. This may represent minimal focal area of atelectasis and/or infiltrate. Normal pleura. Normal chest wall structures. There are degenerative changes of thoracic spine. There is evidence of a large hiatal hernia. The patient is status post cholecystectomy. CT/CTA Chest W/WO Contrast IMPRESSION: No evidence of pulmonary embolism. Focal area of scarring with bronchiectasis along the anterior aspect of the right lower lobe adjacent to the right major fissure. Minimal increased markings in the right middle lobe. This may represent a focal area of atelectasis and/or early infiltrate. Electronically Signed: Sascha Hernandez MD at 13:36 EST , Service support ,
[2021-04-04 14:00] LABS: CREATININE FINGERSTICK 0.9 mg/dL (0.55-1.02); EGFR FINGERSTICK > 60.0000 mL/min (>60)
== END 2021-04-04 23:59 | disposition short-term general hospital (02) ==
LOC: CT 12:53
PROVIDERS: PCP Family Medicine Geriatric Medicine; Referring Provider Family Medicine Geriatric Medicine; Visit Provider Family Medicine Geriatric Medicine
DX: R79.1 Abnormal coagulation profile (principal); I26.99 Other pulmonary embolism without acute cor pulmonale
CPT/HCPCS: 71275; Q9967; A4216

== ENCOUNTER 2021-04-05 09:07 | Outpatient (CLI) | payer OTHER, SELFPAY | END 2021-04-05 23:59 | disposition short-term general hospital (02) | PROVIDERS: PCP Family Medicine Geriatric Medicine; Referring Provider Family Medicine Geriatric Medicine; Visit Provider Family Medicine Geriatric Medicine | DX: R68.83 Chills (without fever) (principal) | CPT/HCPCS: 87635; 87804; 87807; C9803; U0003; U0005 ==

== ENCOUNTER → 2021-08-22 | Outpatient (CLI) | payer OTHER, SELFPAY ==
[2021-08-22 12:14] LABS: Absolute Lymphocyte Count 2.09 X10^3/uL (0.83-4.51); Absolute Neutrophil Count 2.8 X10^3/uL (2.0-7.7); Basophil# 0.03 X10^3/uL; Basophil% 0.6 % (0-1); Eosinophil# 0.07 X10^3/uL; Eosinophils% 1.3 % (0-5); Hematocrit 42.4 % (37-47); Hemoglobin 13.8 g/dL (12.0-15.0); Lymphocyte # 2.09 X10^3/ul (0.83-4.51); Lymphocyte % 38.6 % (19-41); Mean Corp Hgb Conc 32.5 g/dL (32-36); Mean Corpuscular Hgb 30.3 pg (27.0-32.0); Mean Corpuscular Volume 93.2 fL (81-99); Mean Platelet Vol. 10.4 fl (6.2-12.0); Monocyte% 7.4 % (0-10); NRBC Flagged by Analyzer 0 % (0-5); Neutrophil # 2.81 X10^3/uL (2.7-7.7); Neutrophil % 51.9 % (47-70); Platelet Count 230 K/mm3 (150-450); RBC Distribution Width CV 12.6 % (11.6-14.6); RBC Distribution Width SD 43.4 fl (35.1-43.9); Red Blood Count 4.55 M/mm3 (4.2-5.4); White Blood Count 5.4 K/mm3 (4.4-11.0)
[2021-08-22 12:33] LABS: Vitamin D,25 Hydroxy 13.2 ng/mL
[2021-08-22 12:54] LABS: ALB/GLOB Ratio 0.8 RATIO (0.9-2.4); AST(SGOT) 13 U/L (15-37); Alanine Aminotransfer ALT/SGPT 22 U/L (13-56); Albumin, Serum 3.3 g/dL (3.2-5.0); Alkaline Phosphatase 92 U/L (45-117); Anion Gap 5 (5-15); BUN 16 mg/dL (7-18); Calcium,Total 9.6 mg/dL (8.5-10.1); Chloride 107 mmol/L (98-107); EST Glomerular Filtration Rate 59 mL/min (>60); Est Glom Filt Rate - Afr Amer 72 mL/min (>60); Globulin 4.3 g/dL (2.2-4.2); Glucose 93 mg/dL (74-106); Protein, Total 7.6 g/dL (6.4-8.2); Sodium Level 140 mmol/L (136-145); Thyroid Stim Hormone (TSH) 2.95 uIU/mL (0.358-3.74)
== END | disposition home or self-care (01) ==
LOC: POLAB3 11:08
PROVIDERS: PCP Family Medicine Geriatric Medicine; Visit Provider Family Medicine Geriatric Medicine
DX: I10 Essential (primary) hypertension (principal); E55.9 Vitamin D deficiency, unspecified
CPT/HCPCS: 36415; 80053; 82306; 84443; 85025

== ENCOUNTER → 2021-11-20 | Outpatient (CLI) | payer OTHER, SELFPAY ==
[2021-11-20 16:26] LABS: Absolute Lymphocyte Count 1.89 X10^3/uL (0.83-4.51); Absolute Neutrophil Count 3.6 X10^3/uL (2.0-7.7); Basophil# 0.05 X10^3/uL; Basophil% 0.8 % (0-1); Eosinophils% 1.7 % (0-5); Hematocrit 41.7 % (37-47); Hemoglobin 13.3 g/dL (12.0-15.0); Lymphocyte # 1.89 X10^3/ul (0.83-4.51); Lymphocyte % 31.9 % (19-41); Mean Corp Hgb Conc 31.9 g/dL (32-36); Mean Corpuscular Hgb 28.9 pg (27.0-32.0); Mean Corpuscular Volume 90.5 fL (81-99); Monocyte# 0.27 X10^3/uL; Monocyte% 4.6 % (0-10); NRBC Flagged by Analyzer 0 % (0-5); Neutrophil # 3.61 X10^3/uL (2.7-7.7); Neutrophil % 60.8 % (47-70); Platelet Count 251 K/mm3 (150-450); RBC Distribution Width CV 13.6 % (11.6-14.6); RBC Distribution Width SD 45.3 fl (35.1-43.9); Red Blood Count 4.61 M/mm3 (4.2-5.4); White Blood Count 5.9 K/mm3 (4.4-11.0)
[2021-11-20 17:24] LABS: ALB/GLOB Ratio 0.8 RATIO (0.9-2.4); AST(SGOT) 15 U/L (15-37); Alanine Aminotransfer ALT/SGPT 18 U/L (13-56); Albumin, Serum 3.2 g/dL (3.2-5.0); Alkaline Phosphatase 101 U/L (45-117); Anion Gap 7 (5-15); BUN 19 mg/dL (7-18); BUN/Creat Ratio 18.3 RATIO (10-20); Calcium,Total 9.4 mg/dL (8.5-10.1); Chloride 112 mmol/L (98-107); Creatinine, Serum 1.04 mg/dL (0.55-1.02); EST Glomerular Filtration Rate 57 mL/min (>60); Est Glom Filt Rate - Afr Amer 69 mL/min (>60); Globulin 4.1 g/dL (2.2-4.2); Glucose 163 mg/dL (74-106); Potassium 3.5 mmol/L (3.5-5.1); Protein, Total 7.3 g/dL (6.4-8.2); Sodium Level 144 mmol/L (136-145); Thyroid Stim Hormone (TSH) 2.07 uIU/mL (0.358-3.74)
== END | disposition home or self-care (01) ==
LOC: POLAB3 16:00
PROVIDERS: PCP Family Medicine Geriatric Medicine; Visit Provider Family Medicine Geriatric Medicine
DX: R53.83 Other fatigue (principal)
CPT/HCPCS: 36415; 80053; 84443; 85025

== ENCOUNTER → 2021-11-26 | Outpatient (CLI) | payer OTHER, SELFPAY ==
--- NOTE | 2021-11-26 09:40 | TISS_PTH ---
PATIENT: SHAHEEN JARRELL LOC: [facility] U#:[id number] AGE/SX: 66/F ROOM: RE11/26/[address]: Dr. Amrik Queen MD : 1955 BED: DIS: 11/26/2021 SPEC #: [id number] RECD: 11/26/21 16:14 STATUS: LONNY ESSIE #: [id number] NEPTALI: 11/26/21 09:[address]: Amrik Queen Chi DEPT: SURGICAL PATHOLOGY RECD BY: Aria Banerjee Tissues: Skin of face, NOS Procedures: Surgery Specimen Level IV HEADER OPERATION: Left cheek shave biopsy PRE-OP DIAGNOSIS: L98.9 TISSUE SUBMITTED: Left cheek MICROSCOPIC DIAGNOSIS Left cheek, shave biopsy: Actinic keratosis, hypertrophic type. Solar elastosis. Negative for malignancy. SJ:alexi 11/28/2021 MICROSCOPIC DESCRIPTION Slides are reviewed. GROSS DESCRIPTION Received is one container labeled with the patient's name and not further designated. The specimen consists of a shave biopsy of membreno-white skin measuring 1 x 0.7 cm and up to 0.1 cm in thickness. The specimen is inked, serially sectioned and submitted entirely in one cassette. / SJ:rg 11/27/2021 TC:5 CPT: 08744
== END | disposition home or self-care (01) ==
PROVIDERS: PCP Family Medicine Geriatric Medicine; Visit Provider Family Medicine Geriatric Medicine
DX: L57.0 Actinic keratosis (principal); L57.8 Other skin changes due to chronic exposure to nonionizing radiation
CPT/HCPCS: 88305

== ENCOUNTER 2021-12-30 09:51 | Day surgery (SDC) | payer OTHER, SELFPAY ==
--- NOTE | 2021-12-26 08:59 | EKG12_ITS ---
Test Reason : PREOP Blood Pressure : / mmHG Vent. Rate : 078 BPM Atrial Rate : 078 BPM P-R Int : 156 ms QRS Dur : 076 ms QT Int : 364 ms P-R-T Axes : -04 005 006 degrees QTc Int : 414 ms Normal sinus rhythm Normal ECG Confirmed by LASHAWN JASMINE, WYATT ([id number]), department editor STEVEN SOLER ([id number]) on 12/26/2021 2:07:27 P M Referred By: Jake Kennedy Confirmed By:KESHAWN HARDIN MD
[2021-12-26 10:13] LABS: Hematocrit 43.8 % (37-47); Hemoglobin 13.9 g/dL (12.0-15.0); Mean Corp Hgb Conc 31.7 g/dL (32-36); Mean Corpuscular Hgb 28.4 pg (27.0-32.0); Mean Corpuscular Volume 89.4 fL (81-99); Mean Platelet Vol. 10.4 fl (6.2-12.0); Platelet Count 271 K/mm3 (150-450); RBC Distribution Width CV 13.6 % (11.6-14.6); RBC Distribution Width SD 44.2 fl (35.1-43.9); White Blood Count 7.7 K/mm3 (4.4-11.0)
[2021-12-26 10:28] LABS: Anion Gap 8 (5-15); BUN 20 mg/dL (7-18); Calcium,Total 9.4 mg/dL (8.5-10.1); Chloride 109 mmol/L (98-107); EST Glomerular Filtration Rate 59 mL/min (>60); Est Glom Filt Rate - Afr Amer 72 mL/min (>60); Glucose 86 mg/dL (74-106); Sodium Level 142 mmol/L (136-145)
--- NOTE | 2021-12-30 | LES_PTH ---
PATIENT: SHAHEEN JARRELL LOC: [facility] – [place] U#:[id number] AGE/SX: 66/F ROOM: RE12/30/[address]: Dr. Jake Kennedy MD : 1955 BED: DIS: 12/30/2021 SPEC #: [id number] RECD: 12/30/21 12:40 STATUS: LONNY REQ #: [id number] NEPTALI: 12/30/21 00:[address]: Jake Kennedy DEPT: SURGICAL PATHOLOGY RECD BY: Jodie Nash ENTERED: 12/30/21 13:29 SP TYPE: Lesion OTHR DR: Dr. 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 Reactive epithelial changes. Negative for malignancy. BEBE:alexi 12/30/2021 Case has been reviewed in consultation with Dr. Panchal who concurs with the above diagnosis. IDC:AM MICROSCOPIC DIAGNOSIS Lower lip lesion, excisional biopsy: Pyogenic granuloma (lobular papillary hemangioma) with extensive ulceration and associated acute inflammation. Reactive epithelial changes. Negative for malignancy. See comment. BEBE:alexi 12/31/2021 COMMENT Area of ulceration shows extensive bacterial colonization. Special stain for fungi is negative for organisms; matched control is appropriate. Case has been reviewed in consultation with Dr. Panchal who concurs with the above diagnosis. IDC:AM MICROSCOPIC DESCRIPTION Slides are reviewed. GROSS DESCRIPTION Received fresh for frozen section diagnosis labeled with the patient's name is a specimen designated lower lip neoplasm. The specimen consists of a round piece of pink, congested tissue measuring 1.5 x 1 x 1 cm. This piece is inked and serially sectioned. Also, received is a piece of membreno-pink ellipse of mucosal tissue measuring 1.2 x 0.5 x 0.2 cm. This piece is oriented as follows: long stitch inferior at 6 o?clock, short stitch medial at 3 o?clock. The specimen is inked as follows: inferior tip - yellow, superior tip 12 o?clock - green, 3 o?clock - black, 9 o?clock - blue. The piece is serially sectioned. The entire specimen is submitted for frozen section diagnosis in four cassettes as follows: 1 & 2 - larger piece, 3 & 4 - mucosal ellipse of tissue (3 - 12 and 6 o?clock tips, 4??rest of the specimen). / SJ:alexi 12/30/2021 TC:5 CPT: 19449, 62522, 00042 x3, 11347
[2021-12-30] MEDS: Lactated Ringers 1,000 ML 15 ML IV (10:35)
[2021-12-30 10:47] VITALS: BP 171/109; PULSE 73; RESP 20; TEMP 36.3; O2SAT 97; BMI 38.1
[2021-12-30] MEDS: Bacitracin 500 UNITS/GM PACKET (11:54)
--- NOTE | 2021-12-30 12:06 | PCM.DC.SUM ---
Providers Primary Care Physician: Dr. Amrik Queen MD Reason For Visit: EXCISION LOWER LIP LESION Medications at Discharge Home Medications lisinopril 20 mg-hydrochlorothiazide 12.5 mg tablet 1 tablet PO DAILY 01/04/14 pantoprazole 40 mg tablet,delayed release (Protonix) 40 mg PO DAILY 01/04/14 citalopram 20 mg tablet 1 tablet PO DAILY 06/06/20 loperamide 2 mg capsule 2 mg PO DAILY 07/12/20 ferrous sulfate-vitamin C ER 65 mg-150 mg capsule,extended release 1 cap PO .every other day 10/10/20 Weight / BMI Weight Weight: 113.7 kg Body Mass Index (BMI) 38.1 ABG / Lab / Microbiology Data Result Diagrams: 12/26/21 08:48 12/26/21 08:48 D/C Instructions Discharge Diet: No restrictions Discharge Activity: Return to Normal Activity Additional Activity Instructions: Apply antibiotic ointment twice a day Please Follow Up With: Jake Kennedy MD When: end of next week Meaningful Use Info Meaningful Use Diagnoses (Choose all that apply): None applicable Discharge Plan Admission Attending Provider: Jake Kennedy Primary Care Provider: Amrik Queen Chi Discharge Orders/Prescriptions Prescriptions: No Action citalopram 20 mg tablet 1 tablet PO DAILY lisinopril-hydrochlorothiazide 1 TABLET tablet 1 tablet PO DAILY pantoprazole [Protonix] 40 MG tablet 40 mg PO DAILY loperamide 2 mg capsule 2 mg PO DAILY ferrous sulfate-vitamin C 65-150 mg capsule, extended release 1 cap PO .every other day Referrals / Follow Up: Amrik Queen Chi, MD [Primary Care Provider] - Disposition Disposition (needs filled in before D/C Order can be placed): Home, Self Care
[2021-12-30] MEDS: Lidocaine 2% /Epi 1:100 (50ml) 50 ML Vial (12:28)
--- NOTE | 2021-12-30 13:03 | PCM.OPRPT ---
Report of Operation Date of Procedure: 12/30/21 Pre-Operative Diagnosis: lower lip neoplasm Post-Operative Diagnosis: same Surgery/Procedure Performed:: Excision lower lip neoplasm Surgeon: Jake Kennedy Type of Anesthesia: General Anesthesiologist: Clemente Gao Estimated Blood Loss (mL): minimal Description of Procedure: The patient was taken to the operating room on 12/30/2021. She was placed in the supine position on the operating room table. She was given sufficient general endotracheal anesthesia. The lower lip was prepped and draped sterilely. 1% lidocaine with epinephrine was injected into the lower lip. After sufficient vasoconstriction the lesion was excised in an ellipse with a 15 blade. The ellipse spanned both the red and white portions of the lip. I carried the dissection down to the or macularis gayathri muscle. I then sharply excised the lesion. This was marked with suture and sent for frozen section (frozen section eventually came back as a benign lesion). Hemostasis was achieved with monopolar cautery. I then closed the deep layers with interrupted 4-0 chromic. The red portion of the lip was closed with interrupted 4-0 chromic and the wide portion of the lip was closed with interrupted 6-0 nylon. Bacitracin was then applied. The patient was then awoken and brought to recovery room in stable condition. Blood loss minimal. Replacement none. Sponge, needle, and instrument count were correct at the end of the procedure.
[2021-12-30 13:17] VITALS: BP 145/83; BP 171/109; PULSE 101; RESP 16; TEMP 36.6; O2SAT 91
[2021-12-30 13:31] VITALS: BP 163/111; BP 171/109; PULSE 90; RESP 16; O2SAT 94
[2021-12-30 13:50] VITALS: BP 153/107; BP 171/109; PULSE 84; RESP 16; O2SAT 92
[2021-12-30] MEDS: HYDROcodone Bitartrate/Apap 5/325 Tablet PO (14:12)
[2021-12-30 14:22] VITALS: BP 171/109
== END 2021-12-30 14:28 | disposition home or self-care (01) ==
LOC: SDC 09:53 → AC 10:00
PROVIDERS: PCP Family Medicine Geriatric Medicine; Referring Provider Otolaryngology; Visit Provider Otolaryngology
PROC: (CPT 11440; principal; 2021-12-30 11:35)
DX: L98.0 Pyogenic granuloma (principal); I10 Essential (primary) hypertension; K21.9 Gastro-esophageal reflux disease without esophagitis; F41.9 Anxiety disorder, unspecified; Z99.89 Dependence on other enabling machines and devices; F32.A Depression, unspecified; G47.30 Sleep apnea, unspecified
CPT/HCPCS: 11440; 00300; 36415; 80048; 85027; 88305; 88312; 88331; 88332; 93005; J7120; J2405

== ENCOUNTER → 2022-07-07 | Outpatient (CLI) | payer OTHER, SELFPAY | END | disposition home or self-care (01) | LOC: POLAB3 16:24 | PROVIDERS: PCP Family Medicine Geriatric Medicine; Visit Provider Family Medicine Geriatric Medicine | DX: R30.0 Dysuria (principal) | CPT/HCPCS: 87086; 87088 ==

== ENCOUNTER → 2022-08-06 | Outpatient (CLI) | payer OTHER, SELFPAY ==
[2022-08-06 16:43] LABS: Absolute Lymphocyte Count 2.66 X10^3/uL (0.83-4.51); Absolute Neutrophil Count 3.3 X10^3/uL (2.0-7.7); Basophil# 0.04 X10^3/uL; Basophil% 0.6 % (0-1); Eosinophil# 0.05 X10^3/uL; Eosinophils% 0.8 % (0-5); Hematocrit 42.3 % (37-47); Hemoglobin 13.6 g/dL (12.0-15.0); Lymphocyte # 2.66 X10^3/ul (0.83-4.51); Lymphocyte % 41.4 % (19-41); Mean Corp Hgb Conc 32.2 g/dL (32-36); Mean Corpuscular Hgb 29.7 pg (27.0-32.0); Mean Corpuscular Volume 92.4 fL (81-99); Mean Platelet Vol. 10.6 fl (6.2-12.0); Monocyte# 0.35 X10^3/uL; Monocyte% 5.5 % (0-10); NRBC Flagged by Analyzer 0 % (0-5); Neutrophil # 3.31 X10^3/uL (2.7-7.7); Neutrophil % 51.5 % (47-70); Platelet Count 238 K/mm3 (150-450); RBC Distribution Width CV 13.1 % (11.6-14.6); RBC Distribution Width SD 44.2 fl (35.1-43.9); Red Blood Count 4.58 M/mm3 (4.2-5.4); White Blood Count 6.4 K/mm3 (4.4-11.0)
[2022-08-06 16:58] LABS: Vitamin D,25 Hydroxy 32.2 ng/mL
[2022-08-06 17:22] LABS: ALB/GLOB Ratio 0.9 RATIO (0.9-2.4); AST(SGOT) 14 U/L (15-37); Alanine Aminotransfer ALT/SGPT 17 U/L (13-56); Albumin, Serum 3.4 g/dL (3.2-5.0); Alkaline Phosphatase 109 U/L (45-117); Anion Gap 10 (5-15); BUN 22 mg/dL (7-18); BUN/Creat Ratio 21.2 RATIO (10-20); Calcium,Total 9.2 mg/dL (8.5-10.1); Chloride 111 mmol/L (98-107); Creatinine, Serum 1.04 mg/dL (0.55-1.02); EST Glomerular Filtration Rate 57 mL/min (>60); Est Glom Filt Rate - Afr Amer 68 mL/min (>60); Globulin 3.8 g/dL (2.2-4.2); Glucose 99 mg/dL (74-106); Potassium 4.1 mmol/L (3.5-5.1); Protein, Total 7.2 g/dL (6.4-8.2); Sodium Level 143 mmol/L (136-145); Thyroid Stim Hormone (TSH) 1.51 uIU/mL (0.358-3.74)
== END | disposition home or self-care (01) ==
LOC: POLAB3 14:53
PROVIDERS: PCP Family Medicine Geriatric Medicine; Visit Provider Family Medicine Geriatric Medicine
DX: R53.83 Other fatigue (principal); E55.9 Vitamin D deficiency, unspecified
CPT/HCPCS: 36415; 80053; 82306; 84443; 85025

== ENCOUNTER → 2023-01-19 | Outpatient (CLI) | payer OTHER, MEDICARE, SELFPAY ==
--- NOTE | 2023-01-19 16:00 | RAD_ITS ---
EXAM: XR LEFT KNEE, 3 VIEWS CLINICAL INDICATION: PAIN TECHNIQUE: Three views of the left knee. COMPARISON: No relevant prior studies available. FINDINGS: BONES/JOINTS: Unremarkable. No acute fracture. No subluxation. Normal alignment. Preservation of the joint space. No sclerotic or destructive changes observed. SOFT TISSUES: Unremarkable. No soft tissue swelling or gas. No radiopaque foreign body. RAD/Knee 3 Views IMPRESSION: Negative left knee x-rays. Electronically Signed: Sunny Peck MD at 23:57 EST ,
== END | disposition home or self-care (01) ==
LOC: RAD 15:58
PROVIDERS: PCP Family Medicine Geriatric Medicine; Referring Provider Family Medicine Geriatric Medicine; Visit Provider Family Medicine Geriatric Medicine
DX: M25.562 Pain in left knee (principal)
CPT/HCPCS: 73562

== ENCOUNTER → 2023-02-11 | Outpatient (CLI) | payer OTHER, MEDICARE, SELFPAY ==
[2023-02-11 16:09] LABS: Absolute Lymphocyte Count 1.87 X10^3/uL (0.83-4.51); Absolute Neutrophil Count 3.8 X10^3/uL (2.0-7.7); Basophil# 0.05 X10^3/uL; Basophil% 0.8 % (0-1); Eosinophil# 0.04 X10^3/uL; Eosinophils% 0.7 % (0-5); Hematocrit 39.5 % (37-47); Hemoglobin 12.2 g/dL (12.0-15.0); Lymphocyte # 1.87 X10^3/ul (0.83-4.51); Lymphocyte % 30.7 % (19-41); Mean Corp Hgb Conc 30.9 g/dL (32-36); Mean Corpuscular Hgb 27.9 pg (27.0-32.0); Mean Corpuscular Volume 90.4 fL (81-99); Mean Platelet Vol. 9.9 fl (6.2-12.0); Monocyte# 0.35 X10^3/uL; Monocyte% 5.7 % (0-10); NRBC Flagged by Analyzer 0 % (0-5); Neutrophil # 3.77 X10^3/uL (2.7-7.7); Neutrophil % 61.9 % (47-70); Platelet Count 258 K/mm3 (150-450); RBC Distribution Width CV 15.6 % (11.6-14.6); RBC Distribution Width SD 51.7 fl (35.1-43.9); Red Blood Count 4.37 M/mm3 (4.2-5.4); White Blood Count 6.1 K/mm3 (4.4-11.0)
[2023-02-11 16:19] LABS: Vitamin D,25 Hydroxy 26.7 ng/mL
[2023-02-11 16:27] LABS: ALB/GLOB Ratio 0.9 RATIO (0.9-2.4); AST(SGOT) 9 U/L (15-37); Alanine Aminotransfer ALT/SGPT 19 U/L (13-56); Albumin, Serum 3.4 g/dL (3.2-5.0); Alkaline Phosphatase 100 U/L (45-117); Anion Gap 6 (5-15); BUN 24 mg/dL (7-18); BUN/Creat Ratio 25.4 RATIO (10-20); Calcium,Total 9.1 mg/dL (8.5-10.1); Chloride 111 mmol/L (98-107); Creatinine, Serum 0.95 mg/dL (0.55-1.02); EST Glomerular Filtration Rate 63 mL/min (>60); Est Glom Filt Rate - Afr Amer 76 mL/min (>60); Globulin 3.9 g/dL (2.2-4.2); Glucose 104 mg/dL (74-106); Potassium 4.5 mmol/L (3.5-5.1); Protein, Total 7.3 g/dL (6.4-8.2); Sodium Level 144 mmol/L (136-145); Thyroid Stim Hormone (TSH) 1.11 uIU/mL (0.358-3.74)
== END | disposition home or self-care (01) ==
LOC: POLAB3 15:12
PROVIDERS: PCP Family Medicine Geriatric Medicine; Visit Provider Family Medicine Geriatric Medicine
DX: I10 Essential (primary) hypertension (principal); E55.9 Vitamin D deficiency, unspecified
CPT/HCPCS: 36415; 80053; 82306; 84443; 85025

== ENCOUNTER → 2023-04-23 | Outpatient (CLI) | payer OTHER, MEDICARE, SELFPAY ==
[2023-04-23 12:09] LABS: Absolute Lymphocyte Count 1.74 X10^3/uL (0.83-4.51); Absolute Neutrophil Count 2.8 X10^3/uL (2.0-7.7); Basophil# 0.04 X10^3/uL; Basophil% 0.8 % (0-1); Eosinophil# 0.06 X10^3/uL; Eosinophils% 1.2 % (0-5); Hematocrit 37.5 % (37-47); Lymphocyte # 1.74 X10^3/ul (0.83-4.51); Lymphocyte % 34.9 % (19-41); Mean Corpuscular Hgb 27.6 pg (27.0-32.0); Mean Corpuscular Volume 86.2 fL (81-99); Mean Platelet Vol. 10.2 fl (6.2-12.0); Monocyte# 0.33 X10^3/uL; Monocyte% 6.6 % (0-10); NRBC Flagged by Analyzer 0 % (0-5); Neutrophil % 56.3 % (47-70); Platelet Count 274 K/mm3 (150-450); RBC Distribution Width CV 13.8 % (11.6-14.6); RBC Distribution Width SD 43.6 fl (35.1-43.9); Red Blood Count 4.35 M/mm3 (4.2-5.4)
[2023-04-23 12:16] LABS: Anion Gap 3 (5-15); BUN 13 mg/dL (7-18); BUN/Creat Ratio 14.8 RATIO (10-20); Calcium,Total 9.1 mg/dL (8.5-10.1); Chloride 109 mmol/L (98-107); Creatinine, Serum 0.88 mg/dL (0.55-1.02); EST Glomerular Filtration Rate 69 mL/min (>60); Est Glom Filt Rate - Afr Amer 83 mL/min (>60); Glucose 93 mg/dL (74-106); Potassium 4.3 mmol/L (3.5-5.1); Sodium Level 139 mmol/L (136-145)
--- OUTSIDE RECORDS SUMMARY | 2023-04-23 12:19 | XMS RPT_ITS | CCD ---
Author Name Unknown Address [address] [place] [address] Organization [facility] Care Team Providers Care Motion Picture Director Name Role Phone LUKE, MOHSEN Unavailable Unavailable LUKE MOHSEN Unavailable Unavailable Jamarcus García MD Primary Care Provider [phone] JESSIE TALLEY CHI Primary Care Unavailable Allergies Allergy Classification Reported Allergen(s) Allergy Type Date of Onset Reaction(s) Facility (2 sources) Sulfonamides (Antibiotic); Translations: [SULFA (SULFONAMIDE ANTIBIOTICS)] Drug Intolerance 8 Itching [facility] Work Phone: Medications Completed/Discontinued Medications Medication Drug Class(es) Dates Sig (Normalized) Sig (Original) DULoxetine 60 mg delayed release oral capsule (1 source) Serotonin and Norepinephrine Reuptake Inhibitor Start: 08-25-2019 DULoxetine (CYMBALTA) 60 mg capsule Take one twice a day. 60 capsule 5 08/25/2019 Active Problems Active Problems Problem Classification Problem Date Documented Da te Episodic/Chronic Esophageal disorders (1 source) Gastroesophageal reflux disease without esophagitis; Translations: [Gastro-esophageal reflux disease without esophagitis] Onset: 9 01-20-2019 Chronic Essential hypertension (1 source) Essential hypertension; Translations: [Essential (primary) hypertension] Onset: 8 01-20-2019 Chronic Mood disorders (1 source) Depressive disorder; Translations: [Depression] Onset: 8 01-20-2019 Chronic Other gastrointestinal disorders (1 source) Irritable bowel syndrome with diarrhea; Translations: [Irritable bowel syndrome with diarrhea] Onset: 9 01-20-2019 Chronic Other nervous system disorders (1 source) Right-sided piriformis syndrome; Translations: [Lesion of sciatic nerve, right lower limb] Onset: 9 01-21-2019 Chronic Other screening for suspected conditions (not mental disorders or infectious disease) (1 source) Patient encounter status; Translations: [Encounter for screening mammogram for malignant neoplasm of breast] Episodic Residual codes; unclassified (1 source) Obstructive sleep apnea syndrome; Translations: [Obstructive sleep apnea (adult) (pediatric)] Onset: 0 06-23-2019 Chronic Rheumatoid arthritis and related disease (1 source) Rheumatoid arthritis of multiple joints; Translations: [Rheumatoid arthritis with rheumatoid factor of multiple sites without organ or systems involvement] Onset: 9 01-20-2019 Chronic Sprains and strains (1 source) Sprain of other specified parts of right knee, initial encounter; Translations: [Sprain of other specified parts of right knee, initial encounter] Onset: 4 Episodic Past or Other Problems Problem Classification Problem Date Documented Da te Episodic/Chronic Deficiency and other anemia (1 source) Iron deficiency anemia; Translations: [Iron deficiency anemia, unspecified] Onset: 01-24-2019 01-24-2019 Episodic Other connective tissue disease (1 source) Fibromyalgia; Translations: [Fibromyalgia] Onset: 09-03-2018 01-20-2019 Episodic Other connective tissue disease (1 source) Trochanteric bursitis; Translations: [Trochanteric bursitis, right hip] Onset: 01-21-2019 01-21-2019 Episodic Other gastrointestinal disorders (1 source) Functional diarrhea; Translations: [Functional diarrhea] Onset: 09-03-2018 01-20-2019 Episodic Spondylosis; intervertebral disc disorders; other back problems (2 sources) Acute back pain with sciatica; Translations: [Lumbago with sciatica, right side] Onset: 01-20-2019 01-20-2019 Episodic Results Test Name Value Interpretation Reference Range Facil ity Encounters Encounter Date Encounter Type Care Provider Facility Start: 03-31-2023 End: 03-31-2023 ambulatory JESSIE CHI MAYANK Facility:[facility] Start: 09-18-2021 ambulatory Jamarcus estrella MD Work Phone: Internal Medicine [facility] Start: 01-20-2019 Patient encounter status Jamarcus García MD Work Phone: [facility] Work Phone: Start: 01-23-2017 End: 01-24-2017 Ambulatory MOHSEN [facility] Facility:[facility] Procedures Date Procedure Procedure Detail Performing Clinician Start: 06-05-2014 Colonoscopy Jamarcus llamas MD Work Phone: Plan of Treatment Date Care Activity Detail Author Start: 01-20-2029 Urine microalbumin profile DTAP,TDAP,TD (2 - Td or Tdap) [facility] Start: 01-21-2024 LIPID SCREEN LIPID SCREEN [facility] Start: 01-20-2022 DIABETES SCREEN DIABETES SCREEN [facility] Start: 11-14-2021 Influenza vaccination INFLUENZA (#1) [facility] Start: 06-05-2021 Colonoscopy COLONOSCOPY [facility] Start: 06-05-2021 COLORECTAL CANCER SCREENING COLORECTAL CANCER SCREENING [facility] Start: 10-02-2020 ANNUAL PCP TEAM CHRONIC DISEASE VISIT ANNUAL PCP TEAM CHRONIC DISEASE VISIT [facility] Start: 11-28-2019 SHINGRIX VACCINE (2 of 2) SHINGRIX VACCINE (2 of 2) [facility] Start: 2002 COLOGUARD (FIT-DNA) COLOGUARD (FIT-DNA) [facility] Start: [address] COLONOGRAPHY [facility] Start: 2002 FECAL OCCULT BLOOD FECAL OCCULT BLOOD [facility] Start: 2002 SIGMOIDOSCOPY SIGMOIDOSCOPY [facility] Start: 1997 Mammography MAMMOGRAM [facility] Start: 1987 HPV TESTING HPV TESTING [facility] Start: 1978 PAP TESTING PAP TESTING [facility] Start: 1975 BP CONTROLLED (<130/80) BP CONTROLLED (<130/80) [facility] Start: 1955 COVID-19 VACCINE (#1) COVID-19 VACCINE (#1) [facility] End: 10-18-2022 Screening mammography bi 2-view breast inc cad TRACIE SCREENING Radiology Routine Encounter for screening mammogram for breast cancer 1 Occurrences starting 09/18/2021 until 10/18/2022 [facility] Work Phone: Immunizations Immunization Date Immunization Notes Care Provider Fa cility 10-03-2019 zoster vaccine recombinant Jamarcus García MD Work Phone: [facility] 01-20-2019 influenza, injectabl e, quadrivalent, contains preservative Jamarcus García MD Work Phone: [facility] 01-20-2019 tetanus toxoid, redu mónica diphtheria toxoid, and acellular pertussis vaccine, adsorbed Jamarcus García MD Work Phone: [facility] Payers Date Payer Category Payer Private Health Insurance ROB AVENDANO OAP [id number] 2020-Present [phone] [address] [place] [address] Open Access [id number] 2020 Private Health Insurance [id number] 2017 Unknown [id number] Social History Date Type Detail Facility Start: 04-02-2017 Tobacco smoking stat [facility] Never smoked tobacco [facility] Work Phone: Start: 04-02-2017 Tobacco use and exposure Smokeless tobacco non-user [facility] Work Phone: Start: 10-03-2019 Alcohol intake Current drinke r of alcohol (finding) [facility] Start: 09-03-2018 History SDOH Alcohol Comment socially [facility] Start: 1955 Sex Assigned At Female [facility] Work Phone: Progress note 03-31-2023 Note Date & Type Note Facility 03-31-2023 Note HNO ID: [id number] Author: SKIP MURPHY RT(R) Service: ? Author Type: Technologist Type: Progress Notes Filed: 03/31/2023 15:13 Note Text: Radiology Service Progress Note PATIENT NAME: Alayna Medina DATE OF SERVICE: March 31, 2023 TIME: 3:12 PM PATIENT IDENTITY VERIFICATION COMPLETED USING TWO (2) IDENTIFIERS: Name and Date of confirmed by patient verbally. FALL SCREENING: Has the patient had 2 falls in the last year or 1 fall with injury or currently using an Ambulatory Assistive Device (Walker, Cane, Wheelchair, Crutches, etc.)? No PATIENT GENDER DATA: Female. status: : No status: NO. PATIENT RELEVANT IMPLANT DATA REVIEWED: Yes RADIOLOGY DEPARTMENT: MR; Exam(s) Completed: Lower MSK: Knee, left PERIPHERAL IV DATA: Not applicable SIGNED BY: RT Salena(R) March 31, 2023 3:12 PM [facility] Evaluation note Note Date & Type Note Facility documented in this encounter [facility] Reason for referral (narrative) Diagnostic Procedure Only (Routine) - Pending Review Note Date & Type Note Facility Referral ID Status Reason Start Date Expiration Date Visits Requested Visits Authorized [id number] Pending Review Auto-Generat ed Referral 09/18/2021 10/18/2022 1 1 [facility] Summary Purpose Family History No Family History Records FoundNo Family History Records Found Advance Directives No Advanced Directives Records FoundNo Advanced Directives Records Found Additional Source Comments INFORMATION SOURCE (unrecogn ized section and content) DATE CREATED AUTHOR AUTHOR'S ORGANIZ ATION 04/01/2023 [facility] Source Comments (unrecognize d section and content) In the event this informatio n is protected by the Federal Confidentiality of Alcohol and Drug Abuse Patient Records regulations: The Federal rules restrict any use of the information to criminally investigate or prosecute any alcohol or drug abuse patient.[facility] Care Teams (unrecognized sec tion and content) FOR RECORDS PERTAINING TO PATIENTS WHO ARE OR HAVE BEEN ENROLLED IN A CHEMICAL DEPENDENCY/SUBSTANCEABUSE PROGRAM, SOME INFORMATION MAY BE OMITTED. This clinical summary was aggregated from multiple sources. Caution should be exercised in using it in the provision of clinical care. This summary normalizes information from multiple sources, and as a consequence, information in this document may materially change the coding, format and clinical context of patient data. In addition, data may be omitted in some cases. CLINICAL DECISIONS SHOULD BE BASED ON THE PRIMARY CLINICAL RECORDS. [facility] provides no warranty or guarantee of the accuracy or completeness of information in this document.
[2023-04-23 12:20] LABS: International Normalized Ratio 0.9; Prothrombin Time (Protime)PT. 12.6 SECONDS (11.7-14.9)
== END | disposition home or self-care (01) ==
LOC: POLAB3 10:51
PROVIDERS: PCP Family Medicine Geriatric Medicine; Visit Provider Family Medicine Geriatric Medicine
DX: Z01.818 Encounter for other preprocedural examination (principal); I10 Essential (primary) hypertension
CPT/HCPCS: 36415; 80048; 85025; 85610

== ENCOUNTER → 2023-05-07 | Outpatient (CLI) | payer OTHER, MEDICARE, SELFPAY ==
--- NOTE | 2023-05-07 14:07 | CT_ITS ---
CT LEFT LOWER EXTREMITY WITH 3-D IMAGING CLINICAL INDICATION: Templating for left TKA TECHNIQUE: Axial CT images of the left lower extremity (including left hip, left knee, and left ankle) was performed without IV contrast material. Coronal and sagittal reformats were provided. RADIATION DOSAGE (If Supplied By Facility): CTDIvol = ( 18.77 ) mGy, DLP = ( 1674.08 ) mGycm COMPARISON: Left knee radiographs dated 01/19/2023. FINDINGS: Bones: There is mild pubic symphysis arthrosis. Unremarkable left hip. There is mild tricompartment degenerative arthrosis of the left knee with mild marginal osteophyte formation. There are plantar and posterior calcaneal spurs. Osseous structures are intact without evidence of fracture or dislocation. No lytic or blastic osseous masses. Soft Tissues: There is mild chronic sigmoid diverticulosis without acute diverticulitis. There is a small left knee joint effusion. The deep soft tissue structures are unremarkable. The superficial soft tissues are unremarkable without evidence of edema, hematoma, or foreign body. CT/Extremity Lower without Contra IMPRESSION: Mild tricompartment degenerative arthrosis of the left knee. Small left knee joint effusion. Electronically Signed: Constantino Vincent MD at 14:34 EST ,
--- OUTSIDE RECORDS SUMMARY | 2023-05-07 17:28 | XMS RPT_ITS | CCD ---
Author Name Unknown Address [address] [place] [address] Organization [facility] Care Team Providers Care [place] Swage Operator Name Role Phone LUKE, MOHSEN Unavailable Unavailable LUKE MOHSEN Unavailable Unavailable Jamarcus García MD Primary Care Provider [phone] JESSIE TALLEY CHI Primary Care Unavailable Allergies Allergy Classification Reported Allergen(s) Allergy Type Date of Onset Reaction(s) Facility (2 sources) Sulfonamides (Antibiotic); Translations: [SULFA (SULFONAMIDE ANTIBIOTICS)] Drug Intolerance 8 Itching [facility] Work Phone: Medications Completed/Discontinued Medications Medication Drug [...] 03-31-2023 End: 03-31-2023 ambulatory JESSIE CHI MAYANK Facility:[facility] Start: 09-18-2021 ambulatory Jamarcus estrella MD Work Phone: Internal Medicine [facility] Start: 01-20-2019 Patient encounter status Jamarcus García MD Work Phone: [facility] Work Phone: Start: 01-23-2017 End: 01-24-2017 Ambulatory MOHSEN [facility] Facility:[facility] Procedures Date Procedure Procedure Detail Performing Clinician Start: 06-05-2014 Colonoscopy Jamarcus llamas MD Work Phone: Plan of Treatment Date Care Activity Detail Author Start: 01-20-2029 Urine microalbumin profile DTAP,TDAP,TD (2 - Td or Tdap) [facility] Start: 01-21-2024 LIPID SCREEN LIPID SCREEN [facility] Start: 01-20-2022 DIABETES SCREEN DIABETES SCREEN [facility] Start: 11-14-2021 Influenza vaccination INFLUENZA (#1) [facility] Start: 06-05-2021 Colonoscopy COLONOSCOPY [facility] Start: 06-05-2021 COLORECTAL CANCER SCREENING COLORECTAL CANCER SCREENING [facility] Start: 10-02-2020 ANNUAL PCP TEAM CHRONIC DISEASE VISIT ANNUAL PCP TEAM CHRONIC DISEASE VISIT [facility] Start: 11-28-2019 SHINGRIX VACCINE (2 of 2) SHINGRIX VACCINE (2 of 2) [facility] Start: 2002 COLOGUARD (FIT-DNA) COLOGUARD (FIT-DNA) [facility] Start: [address] COLONOGRAPHY [facility] Start: 2002 FECAL OCCULT BLOOD FECAL OCCULT BLOOD [facility] Start: 2002 SIGMOIDOSCOPY SIGMOIDOSCOPY [facility] Start: 1997 Mammography MAMMOGRAM [facility] Start: 1987 HPV TESTING HPV TESTING [facility] Start: 1978 PAP TESTING PAP TESTING [facility] Start: 1975 BP CONTROLLED (<130/80) BP CONTROLLED (<130/80) [facility] Start: 1957 COVID-19 VACCINE (#1) COVID-19 VACCINE (#1) [facility] End: 10-18-2022 Screening mammography bi 2-view breast inc cad TRACIE SCREENING Radiology Routine Encounter for screening mammogram for breast cancer 1 Occurrences starting 09/18/2021 until 10/18/2022 [facility] Work Phone: Immunizations Immunization Date Immunization Notes Care Provider Fa cility 10-03-2019 zoster vaccine recombinant Jamarcus García MD Work Phone: [facility] 01-20-2019 influenza, injectabl e, quadrivalent, contains preservative Jamarcus García MD Work Phone: [facility] 01-20-2019 tetanus toxoid, redu mónica diphtheria toxoid, and acellular pertussis vaccine, adsorbed Jamarcus García MD Work Phone: [facility] Payers Date Payer Category Payer Private Health Insurance ROB AVENDANO OAP [id number] 2020-Present [phone] [address] [place] [address] Open Access [id number] 2020 Private Health Insurance [id number] 2017 Unknown [id number] Social History Date Type Detail Facility Start: 04-02-2017 Tobacco smoking stat [facility] Never smoked tobacco [facility] Work Phone: Start: 04-02-2017 Tobacco use and exposure Smokeless tobacco non-user [facility] Work Phone: Start: 10-03-2019 Alcohol intake Current drinke r of alcohol (finding) [facility] Start: 09-03-2018 History SDOH Alcohol Comment socially [facility] Start: 1955 Sex Assigned At Female [facility] Work Phone: Progress note 03-31-2023 Note Date & Type Note Facility 03-31-2023 Note HNO ID: [id number] Author: SKIP MURPHY RT(R) Service: ? Author [...] RT Salena(R) March 31, 2023 3:12 PM [facility] Evaluation note Note Date & Type Note Facility documented in this encounter [facility] Reason for referral (narrative) Diagnostic Procedure Only (Routine) - Pending Review Note Date & Type Note Facility Referral ID Status Reason Start Date Expiration Date Visits Requested Visits Authorized [id number] Pending Review Auto-Generat ed Referral 09/18/2021 10/18/2022 1 1 [facility] Summary Purpose Family History No Family History Records FoundNo Family History Records Found Advance Directives No Advanced Directives Records FoundNo Advanced Directives Records Found Additional Source Comments INFORMATION SOURCE (unrecogn ized section and content) DATE CREATED AUTHOR AUTHOR'S ORGANIZ ATION 04/01/2023 [facility] Source Comments (unrecognize d section and content) In the event this informatio n is protected by the Federal Confidentiality of Alcohol and Drug Abuse Patient Records regulations: The Federal rules restrict any use of the information to criminally investigate or prosecute any alcohol or drug abuse patient.[facility] Care Teams (unrecognized sec tion and content) [...] BE BASED ON THE PRIMARY CLINICAL RECORDS. [facility]. provides no warranty or guarantee of the accuracy or completeness of information in this document.
== END | disposition home or self-care (01) ==
PROVIDERS: PCP Family Medicine Geriatric Medicine; Referring Provider Orthopaedic Surgery; Visit Provider Orthopaedic Surgery
DX: M17.12 Unilateral primary osteoarthritis, left knee (principal)
CPT/HCPCS: 73700

== ENCOUNTER 2023-06-09 06:25 | Day surgery (SDC) | payer OTHER, MEDICARE, SELFPAY ==
[2023-05-01 10:10] LABS: Magnesium 2.2 mg/dL (1.6-2.6)
[2023-05-01 10:26] LABS: Hemoglobin A1c 5.7 % (3.8-5.6)
[2023-05-02 12:08] LABS: Fructosamine 208 umol/L (0-285)
[2023-06-09] VITALS (9 sets, daily range): BP systolic 106–147; BP diastolic 60–104; PULSE 77–86; RESP 16–17; TEMP 36.1–36.9; O2SAT 97–100; BMI 38.5
[2023-06-09] MEDS: Lactated Ringers 1,000 ML 15 ML IV (07:18)
[2023-06-09] MEDS: Magnesium 1 GM over 15 mins IV (07:18)
[2023-06-09] MEDS: Acetaminophen 500 MG Tablet 1000 MG PO ×2 (07:19→15:19)
[2023-06-09] MEDS: Celecoxib 200 MG Capsule 400 MG PO (07:20)
[2023-06-09] MEDS: Gabapentin 600 MG Tablet PO (07:20)
[2023-06-09] MEDS: Scopolamine 1mg/72hr Patch 1 PATCH TD (07:20)
[2023-06-09 07:25] LABS: Bedside Glucose 94 mg/dL (74-106)
--- NOTE | 2023-06-09 08:30 | KNEE_PTH ---
PATIENT: SHAHEEN JARRELL LOC: [facility] U#:[id number] AGE/SX: 68/F ROOM: RE06/09/[address]: Dr. Cyrus Nolasco DO : 1955 BED: DIS: 06/09/2023 SPEC #: [id number] RECD: 06/09/23 13:54 STATUS: LONNY RELibby #: [id number] NEPTALI: 06/09/23 08:[address]: Cyrus Nolasco DEPT: SURGICAL PATHOLOGY RECD BY: Maria Schaffer ENTERED: 06/09/23 14:17 SP TYPE: TOTAL KNEE OTHR DR: MD Dr. Amrik Cherry Chi, MD Tissues: Knee, NOS Procedures: Decalcification bone/plaque Surgery Specimen Level IV HEADER OPERATION: ERAS, Left total knee replacement robotic arm assisted PRE-OP DIAGNOSIS: Primary osteoarthritis of left knee TISSUE SUBMITTED: Bone and soft tissue left knee MICROSCOPIC DIAGNOSIS Bone and tissue of left knee, total knee resection: Severe degenerative joint disease. AM:mr 06/12/23 MICROSCOPIC DESCRIPTION Slides are reviewed. GROSS DESCRIPTION Received is one container designated bone and soft tissue left knee. The specimen consists of multiple fragments of membreno-yellow bone measuring in aggregate 9.0 x 8.0 x 3.5 cm. No soft tissue identified. A number of bony fragments contain articular surfaces consistent with tibial plateau and femoral condyle and displaying prominent osteophyte formation and bone erosion. [employer] Merchant sections are submitted in two cassettes as follows: bone after decalcification. BEBE/ 06/09/23 TC:5 CPT: 00559, 49687
--- NOTE | 2023-06-09 08:31 | HP.PCM_ITS ---
History and Physical Date of Admission: 06/09/23 [facility] [address] [place] [address] OFFICE VISIT Date of Service: 04/06/23 MR#: [id number] Acct: [id number] Name: SHAHEEN JARRELL Rep #: [id number] : 1955 Provider: Dr. Cyrus Nolasco DO Age/Sex: 68/F [place] [facility] Status: Signed Intake Vital Signs 02/02/2314:35 04/06/2412:05 Height 5 ft 8 in 5 ft 8 in Weight: 252 lb 2 oz BMI 38.3 Intake Visit Reasons: left knee Is patient in pain?: Yes Allergies cat dander Allergy (Verified 04/06/23 13:09) Eye Swelling, sneezingSulfa (Sulfonamide Antibiotics) Adverse Reaction (Severe, Verified 04/06/23 13:09) itching Medications lisinopril 20 mg-hydrochlorothiazide 12.5 mg tablet 1 tablet PO DAILY 01/04/14 [History Confirmed 04/06/23] pantoprazole 40 mg tablet,delayed release (Protonix) 40 mg PO DAILY 01/04/14 [History Confirmed 04/06/23] citalopram 20 mg tablet 1 tablet PO DAILY 06/06/20 [History Confirmed 04/06/23] loperamide 2 mg capsule 2 mg PO DAILY 07/12/20 [History Confirmed 04/06/23] ferrous sulfate-vitamin C ER 65 mg-150 mg capsule,extended release 1 cap PO .every other day 10/10/20 [History Confirmed 04/06/23] [facility] Medical History (Updated 04/06/23 @ 13:[address] Cyrus Nolasco DO) Acute medial meniscal injury of left knee Alcohol use Anxiety Arthritis Bladder disease Cancer CPAP (continuous positive airway pressure) dependence Depression Easy bruising GERD (gastroesophageal reflux disease) GI bleed Hiatal hernia History of stress test HTN (hypertension) Injury of head and neck Leg cramps Low iron Non-smoker Post-menopausal Primary osteoarthritis of left knee Restless legs Ulcer Wears contact lenses Wears glasses Wears partial dentures Surgical History History of cholecystectomy Hx of hysterectomy Hx of knee surgery Hx of shoulder surgery Social History Smoking Status: Never smoker HPI left knee Details: This documentation accurately reflects the service provided and the decisions made by me, Dr. Cyrus Nolasco, DO 04/06/23 1306. Part of today?s visit was documented by Princess Weinstein atc, acting as scribe. SHAHEEN JARRELL is a 68 year old F here today for a followup on her left knee. Geovani hardy notes that she has had had pain since 01/01/23. She states that she was setting up Halloween decorations and when she stood up, she twisted and felt a snap. Patient complains of pain over her entire knee. Patient notes that she has a snapping which is painful. Patient has knee instability. She has increased pain with ambulation. She has relief with complete rest. Her pain is affecting her ADLS. She states that she has swelling with activities. Patient denies any physical therapy. She had a steroid injection by her PCP which was not helpful. She had an MRI which is here for review. Ortho Exam General General: Yes no acute distress Neurologic: Yes alert and Yes oriented x3 Psychologic: Yes reasonable and appropriate Right Knee Patella Translation: 1 Left Knee Skin/Wound: Yes CDI, No ecchymosis, No erythema and No swelling Knee ROM: Yes ROM-Extension -20 to 0 (-3) and Yes ROM-Flexion 0-140 (112) Examination: Yes med jt line tenderness, Yes Lat jt line tenderness and No TTP Pes Anserine Stability: NML: Anterior Drawer, NML: Posterior Drawer, NML: Valgus 0, NML: Valgus 30 (2mm medial gapping), NML: Varus 0 and NML: Varus 30 Patella Translation: 1 KNEE: 5/5 pulses. no infections. Head: Normocephalic Atraumatic Chest: symmetrical rise, non-labored breathing, no audible wheeze Abdomen: no guarding, non-rigid Supplemental Info 03/31/2023 MRI left knee [facility] report: Complete radial tear of the medial meniscus extending from the periphery to the intermargin in the posterior horn the medial femoral condyle does demonstrate a large area predominantly high-grade greater than 50% cartilage loss or full-thickness cartilage loss the medial tibial plateau demonstrates moderate size area predominantly high-grade greater than 50% cartilage loss lateral femoral condyle demonstrates partial- thickness cartilage loss and small areas as well as the lateral tibial plateau the patella does demonstrate large areas of predominantly high-grade greater than 50% cartilage loss and fissuring. The trochlea demonstrate small areas of partial-thickness cartilage loss there is small subchondral insufficiency fracture of the medial tibial plateau with surrounding edema moderate joint effusion 01/19/2023 x-ray left knee: Mild spurring noted of the medial compartment with possible early joint space narrowing on the notch view there is more definitive spurring noted of the medial femoral condyle medial tibial plateau and tibial spines, of note there is no patellofemoral view Coding Level of Care Code Off vis,est,level 3 Diagnoses Primary osteoarthritis of left knee M17.12 Acute medial meniscal injury of left knee, subsequent encounter S83.8X2D Encounter type: subsequent encounter Assessment and Plan Assessment and Plan (1) Primary osteoarthritis of left knee: Status: Acute (2) Acute medial meniscal injury of left knee: Status: Acute Qualifiers: Encounter type: subsequent encounter Qualified Code(s): S83.8X2D - Sprain of other specified parts of left knee, subsequent encounter Plan Spoke with the patient about the anatomy of the knee and etiology of her pain. Spoke with her about having a large meniscus tear and also have significant cartilage loss particularly medial and patellofemoral. She has options- steroid injection, viscosupplementation injection, physical therapy, bracing, total knee arthroplasty or a knee arthroscopy. Explained due to the amount of cartilage missing, the arthroscopy might not be helpful. The definitive surgery is a total knee arthroplasty. She would like to proceed with a total knee arthroplasty. Spoke with her about the benefits, risks and procedure. She is not able to have a knee replacement for 3 months after her most recent injection. Spoke with her about the risk of infection, blood clot although she will be on a blood thinner post op. She will walk immediately after surgery. She will also wear compression stockings. Spoke with her about the risk of stiffness due to current stiffness preop. She will do formal physical therapy post op. Patient will take narcotics post op. Spoke with the patient about iovera to help with post op, incisional pain post op. She is unable to take NSAIDs 7 days before and 2 weeks post op. Spoke with the patient about the lengthy time it may take to heal and she will likely feel better after 3 months. She will need to take an antibiotic for 1 year post op with any dental work. Recommended she get her filling filled prior to surgery. Patient will need a CT scan for the makoplasty. Patient might have a small area of numbness over her lateral knee. Patient might have a mechanical feel to her knee. She will have her surgery as same day. Risks, benefits and alternatives of surgery reviewed including but not limited to bleeding, infection, nerve, artery and/or tissue damage, fracture, VTE, mechanical feel of the knee, continued pain, stiffness and expected post- operative course. Tentative surgery date May 05, 2023 same-day surgery will need CT and medic al clearance Follow up for iovera or 2 week post op or sooner if pain, swelling, numbness or associated symptoms, or concerns develop. All questions answered. Patient in agreement of plan. 04/06/23 1354 <Electronically signed by Cyrus Nolasco DO> Date Cyrus Shresthaigncharlene Signature: Date (if applicable) CC: ~ I have examined the patient and the H&P has been reviewed. There are no clinical changes since date of exam.
[2023-06-09] MEDS: Cefazolin 2 GM in 0.9% Normal Saline (100mL Bag) 100 ML IV ×2 (08:38→15:00)
[2023-06-09] MEDS: TXA 1000mg in NS100 100ml (IVPB at Incision) 660 MG IV (08:45)
[2023-06-09] MEDS: dexAMETHasone 10 MG/ML Vial IV (08:45)
[2023-06-09] MEDS: TXA 1000mg in NS100 100ml (IVPB at Closure) 660 MG IV (09:15)
[2023-06-09] MEDS: Bupivacaine 0.5% PF 10 ML VIAL (09:29)
[2023-06-09] MEDS: Epinephrine (1 mg/ml) 1 MG/ML VIAL (09:29)
[2023-06-09] MEDS: dexAMETHasone 4 MG/ML Vial (09:29)
[2023-06-09] MEDS: 0.9% Normal Saline (Pres. free 10 ML Vial (09:29)
--- NOTE | 2023-06-09 10:45 | RAD_ITS ---
INDICATION: Postop in PACU -- in PACU EXAMINATION/TECHNIQUE: X-RAY - LEFT XR Knee 1 or 2 Views 2 VIEWS COMPARISON: X-rays left knee 01/19/2023 FINDINGS: BONES: Surgical hardware femoral, tibial and patellar components of the knee prosthesis appear well situated in anatomic alignment. No fracture demonstrated. JOINTS: No dislocation. SOFT TISSUES: Soft tissue swelling anteriorly with associated air in the soft tissues and overlying skin debbi.. RAD/Knee 1 or 2 Views IMPRESSION: Total knee arthroplasty in anatomic alignment. Postsurgical changes and soft tissue air. Electronically Signed: Christina Stapleton MD at 8:11 EDT ,
--- NOTE | 2023-06-09 10:48 | OP.PCM_ITS ---
Operative Report Date of Procedure: 06/09/23 Preoperative diagnosis: Left knee DJD Postoperative diagnosis: Same Procedure: Left total knee arthroplasty CT guided Robotic Assisted Implant: Aleksandra triathlon press fit, femoral component size 4, tibial baseplate size 4, asymmetric patella size 32, polyethylene X3 size 9 CS Anesthesia: Spinal with adductor canal block Tourniquet time: 12 minutes at 300 mmHg Complications: None Condition: Stable to PACU Estimated blood loss: 175 cc Personal Development Mentor Marty Rm. My physician physician assistant surgery was a vital part of this case. He was important in appropriate retraction during the case, and protection of soft tissues during procedure. His intimate knowledge of the case and my steps aided in safe and expedient completion of the procedure as well as appropriate position of the extremity during the case. He was also vital in assisting with closure under my direct supervision. Indication for procedure: This is a 64-year-old female with long standing degenerative joint disease of the knee who has failed conservative treatment and wished to proceed with elective total knee arthroplasty. Risk benefits and alternatives were reviewed including; risk of bleeding, infection, nerve artery and tissue damage, continued pain, postoperative stiffness, venous thromboembolism, need for postoperative rehabilitation, mechanical feel to the knee, and expected postoperative course. The pre- operative CT and templating was performed with component sizing. Procedure: The patient was met in the preoperative holding area. The operative extremity was identified by both patient and physician and was marked. Patient was met by anesthesia. An adductor canal block was placed by anesthesia posto peratively the patient was brought back to the operating room on a wheeled cart and transferred to the operating table in the supine position. Anesthesia was started. A well-padded tourniquet was placed on the operative extremity. The patient was prepped and draped in the usual sterile fashion. A timeout was called to ensure the proper patient procedure and extremity were being contemplated. An esmarch was used to exsanguinate the extremity. The tourniquet was inflated. A 10 blade scalpel was used to make a midline incision down through the skin and subcutaneous tissue. Skin retractors placed. Bovie and Aquamantis were used to perform meticulous hemostasis. full-thickness flaps were elevated medial and lateral along the joint capsule. A deep blade scalpel was used to perform a medial parapatellar arthrotomy. The knee was brought to full extension. A bovie was used to release the soft tissues off the most proximal aspect of the medial tibial plateau, a three-quarter inch curved osteotome was also used in this process. The infrapatellar fat pad was excised. The suprapatellar fat pad was excised partially anteriorolateraly and portion the anterioromedial pad was elevated from the femur. At this point our intra- articular femoral array was placed at a 45 degree angle proximal and posterior to the medial epicondyle. femoral checkpoint was placed at this time. Our tib ial array was placed greater than 1 hands breath below the incision at a 20 degree angle stab incisions were made with a 15 blade scalpel and pins were placed and attached to the tibial array , tibial checkpoint was placed in the proximal tibial metaphysis. Tourniquet was let down. At this point registration mae were taken throughout the knee . Once the knee was registered we then tensioned the medial and lateral ligaments in extension and 90 degrees of flexion. We then used these numbers to adjust our components within parameters to balance the knee in both flexion and extension once this was done on our monitor we then proceeded with using the robotic arm to make our tibial plateau cut, anterior and posterior chamfer and distal femur cuts. we removed the cut fragments with the use of a bovie and Samuel, we did use a lamina gas singer to insure we visualized and removed all posterior osteophytes and at this time also used the Aquamantis on the posterior joint capsule. we then trialed and achieved the desired plan with a well-balanced knee. we used the green probe to jorgito the corresponding tibial rotation based on our CT template. Lug holes were drilled in the femur the tibia preparation was completed with the appropriate sized base plate pinned based on previous rotation jorgito. An appropriate sized fin punch was used on the tibia and 4 corner drill was used for the press fit component and the patella was prepared by first using a caliper to ensure sufficient bone stock and a patellar reamer to remove the desired amount of bone. lug holes drilled for an asymmetric poly. We then brought the knee through range of motion with excellent patellar tracking. We thoroughly irrigated the knee. Trial components were removed a posterior capsular injection was preformed with our standard cocktail. In addition the aqua Mantis was also used to aid in hemostasis. Betadine rinse was allowed to sit and washed out completely. Components were press-fit into place. Aricept rinse was then used followed by several more liters of irrigation after it was allowed to sit. The joint capsule was closed with #1 Ethibond [id number]'s in the upper part of the arthrotomy and #1 Vicryl in the lower part of the arthrotomy. , Followed by 2-0 Vicryl in the subcutaneous tissues with debbi in the skin. Arrays and checkpoints were removed prior to closure all counts were correct stab incisions were closed with a staple standard dressing in the form of Mepilex AG for the main incision and a small Mepilex over the pin holes. Thigh-high ASHLEY hose applied over top of dressing. Patient tolerated the procedure well and was directed to PACU in stable condition . There were no intraoperative complications.
--- NOTE | 2023-06-09 10:49 | DCINST_ITS ---
Discharge Instructions Diet Discharge Diet: No restrictions Dressing / Incision Call your doctor if you observe: Shortness of breath and Chest pain Additional Dressing/Incision Instructions:: Ice and elevate lower extremities 2 weeks while not ambulating. Ambulation is encouraged. Weight bearing as tolerated. Use assistive devise for stability. Encourage FULL knee extension and flexion 1 time EVERY time you get up and down and MULTIPLE times per day. No showering until 72 hours after surgery. Begin showering postop day #3. Remove the dressing prior to shower and gently wash with warm water and antibacterial soap then pat dry and place abdominal pad (or plain gauze) and ASHLEY hose over top. This is to be done daily. Do not submerge for 3 weeks. If not showering daily after the initial 72 hours then you must clean incision and change dressing daily. Do not allow animals near the incision area. Keep clean. Follow anti-coagulation recommendations as prescribed. Do not take any NSAIDs while on blood thinner. Do not take any additional narcotic pain medication other than what was prescribed on your surgery day without discussing with physician. Narcotic medication can be addictive. Do not drink alcohol while taking narcotics. Supplement narcotic prescription with acetaminophen 1000 mg 4 times a day. Start physical therapy. If you are not currently scheduled for physical therapy or you are unsure of appointment time please call office [facility] to arrange. Call Dr. Nolasco with any concerns. Follow Up Care Please Follow Up With: Cyrus Nolasco DO When: 2 weeks Test Results: Test results from this visit will be discussed in further detail at your follow- up appointment, if applicable. Discharge Plan Admission Primary Reason for Your Visit: Left total knee arthroplasty Attending Provider: Cyrus Nolasco Primary Care Provider: Amrik [facility] [employer] Providers: Orion Nicholson Discharge Orders/Prescriptions Prescriptions: New acetaminophen [acetaminophen] 500 mg tablet 1,000 mg PO Q6H PRN Qty: 100 0RF Eliquis 2.5 mg tablet 2.5 mg PO BID Qty: 30 0RF Rx Instructions: Begin morning after surgery oxycodone 5 mg tablet 5 - 10 mg PO Q4H PRN (Reason: pain) 7 Days Qty: 60 0RF cephalexin [cephalexin] 500 mg capsule 2,000 mg PO Q8 Qty: 8 0RF Rx Instructions: take 4 tabs at 9:00 pm and 4 tabs after 5 am when you wake up Continued pantoprazole [Protonix] 40 MG tablet 40 mg PO BID loperamide 2 mg capsule 2 mg PO DAILY vilazodone 40 mg tablet 40 mg PO DAILY Patient Comments: take 1 tablet by mouth once daily cholecalciferol (vitamin D3) [Vitamin D3] 25 mcg (1,000 unit) capsule 25 mcg PO DAILY lisinopril 20 mg tablet 20 mg PO DAILY Patient Comments: take 1 tablet by mouth daily Referrals / Follow Up: Amrik Queen Chi, MD [Primary Care Provider] - Disposition Disposition (needs filled in before D/C Order can be placed): Home, Self Care
[2023-06-09] MEDS: oxyCODONE 5 MG Tablet PO (12:44)
[2023-06-09] MEDS: Ketorolac 30 MG/ML Syringe 15 MG IV (13:05)
== END 2023-06-09 15:50 | disposition home or self-care (01) ==
LOC: SDC 06:25 → AC 06:25
PROVIDERS: Anesthesiology; PCP Family Medicine Geriatric Medicine; Referring Provider Orthopaedic Surgery; Visit Provider Orthopaedic Surgery
PROC: 0SRD0JZ Replacement of Left Knee Joint with Synthetic Substitute, Open Approach (ICD-10-PCS; CPT 27447; principal; 2023-06-09 08:00)
DX: M17.12 Unilateral primary osteoarthritis, left knee (principal); S83.8X2A Sprain of other specified parts of left knee, initial encounter; I10 Essential (primary) hypertension; F41.9 Anxiety disorder, unspecified; F32.A Depression, unspecified; K21.9 Gastro-esophageal reflux disease without esophagitis; G47.30 Sleep apnea, unspecified; Z79.899 Other long term (current) drug therapy; X58.XXXA Exposure to other specified factors, initial encounter
CPT/HCPCS: 27447; S2900; 01402; 36415; 73560; 82962; 82985; 83036; 83735; 85730; 86850; 86900; 86901; 87077; 87081; 88305; 88311; 97162; C1776; J7120; J2405; J3475; J3490

== ENCOUNTER → 2023-08-24 | Outpatient (CLI) | payer OTHER, MEDICARE, SELFPAY ==
[2023-08-24 10:21] LABS: Absolute Neutrophil Count 2.8 X10^3/uL (2.0-7.7); Basophil# 0.04 X10^3/uL; Basophil% 0.8 % (0-1); Eosinophil# 0.06 X10^3/uL; Eosinophils% 1.2 % (0-5); Hematocrit 35.1 % (37-47); Hemoglobin 10.8 g/dL (12.0-15.0); Lymphocyte % 35.8 % (19-41); Mean Corp Hgb Conc 30.8 g/dL (32-36); Mean Corpuscular Hgb 25.2 pg (27.0-32.0); Mean Corpuscular Volume 81.8 fL (81-99); Mean Platelet Vol. 9.8 fl (6.2-12.0); Monocyte# 0.31 X10^3/uL; Monocyte% 6.2 % (0-10); NRBC Flagged by Analyzer 0 % (0-5); Neutrophil # 2.81 X10^3/uL (2.7-7.7); Neutrophil % 55.8 % (47-70); Platelet Count 297 K/mm3 (150-450); RBC Distribution Width CV 15.7 % (11.6-14.6); Red Blood Count 4.29 M/mm3 (4.2-5.4)
[2023-08-24 10:42] LABS: Vitamin D,25 Hydroxy 27.8 ng/mL
[2023-08-24 11:03] LABS: ALB/GLOB Ratio 0.9 RATIO (0.9-2.4); AST(SGOT) 12 U/L (15-37); Alanine Aminotransfer ALT/SGPT 14 U/L (13-56); Albumin, Serum 3.4 g/dL (3.2-5.0); Alkaline Phosphatase 121 U/L (45-117); Anion Gap 4 (5-15); BUN 18 mg/dL (7-18); BUN/Creat Ratio 18.8 RATIO (10-20); Calcium,Total 9.3 mg/dL (8.5-10.1); Chloride 111 mmol/L (98-107); Cholesterol 201 mg/dL (200); Creatinine, Serum 0.96 mg/dL (0.55-1.02); EST Glomerular Filtration Rate 62 mL/min (>60); Est Glom Filt Rate - Afr Amer 75 mL/min (>60); Globulin 3.9 g/dL (2.2-4.2); Glucose 103 mg/dL (74-106); High Density Lipoprotein 76 mg/dL; Protein, Total 7.3 g/dL (6.4-8.2); Sodium Level 140 mmol/L (136-145); Thyroid Stim Hormone (TSH) 1.83 uIU/mL (0.358-3.74); Triglycerides 86 mg/dL; Very Low Density Lipoprotein 17 mg/dL (5-40)
== END | disposition home or self-care (01) ==
LOC: LAB 09:44
PROVIDERS: PCP Family Medicine Geriatric Medicine; Referring Provider Family Medicine Geriatric Medicine; Visit Provider Family Medicine Geriatric Medicine
DX: I10 Essential (primary) hypertension (principal); E55.9 Vitamin D deficiency, unspecified; E78.5 Hyperlipidemia, unspecified
CPT/HCPCS: 36415; 80053; 80061; 82306; 84443; 85025

== ENCOUNTER → 2023-12-16 | Outpatient (CLI) | payer OTHER, MEDICARE, SELFPAY | END | disposition home or self-care (01) | LOC: POLAB3 14:48 | PROVIDERS: PCP Family Medicine Geriatric Medicine; Visit Provider Family Medicine Geriatric Medicine | DX: N39.0 Urinary tract infection, site not specified (principal) | CPT/HCPCS: 87077; 87086; 87088; 87186 ==

== ENCOUNTER → 2024-02-22 | Outpatient (CLI) | payer OTHER, MEDICARE, SELFPAY ==
[2024-02-22 10:13] LABS: Absolute Lymphocyte Count 2.15 X10^3/uL (0.83-4.51); Absolute Neutrophil Count 3.4 X10^3/uL (2.0-7.7); Basophil# 0.06 X10^3/uL; Eosinophil# 0.08 X10^3/uL; Eosinophils% 1.3 % (0-5); Hematocrit 42.2 % (37-47); Hemoglobin 13.9 g/dL (12.0-15.0); Lymphocyte # 2.15 X10^3/ul (0.83-4.51); Lymphocyte % 35.4 % (19-41); Mean Corp Hgb Conc 32.9 g/dL (32-36); Mean Corpuscular Hgb 30.5 pg (27.0-32.0); Mean Corpuscular Volume 92.5 fL (81-99); Mean Platelet Vol. 9.7 fl (6.2-12.0); Monocyte# 0.37 X10^3/uL; Monocyte% 6.1 % (0-10); NRBC Flagged by Analyzer 0 % (0-5); Neutrophil % 55.9 % (47-70); Platelet Count 299 K/mm3 (150-450); RBC Distribution Width SD 44.3 fl (35.1-43.9); Red Blood Count 4.56 M/mm3 (4.2-5.4); White Blood Count 6.1 K/mm3 (4.4-11.0)
[2024-02-22 10:50] LABS: Vitamin D,25 Hydroxy 26.4 ng/mL
[2024-02-22 11:02] LABS: ALB/GLOB Ratio 0.9 RATIO (0.9-2.4); AST(SGOT) 15 U/L (15-37); Alanine Aminotransfer ALT/SGPT 20 U/L (13-56); Albumin, Serum 3.3 g/dL (3.2-5.0); Alkaline Phosphatase 120 U/L (45-117); Anion Gap 4 (5-15); BUN 16 mg/dL (7-18); BUN/Creat Ratio 17.4 RATIO (10-20); Calcium,Total 9.6 mg/dL (8.5-10.1); Chloride 108 mmol/L (98-107); Cholesterol 202 mg/dL (200); Creatinine, Serum 0.92 mg/dL (0.55-1.02); EST Glomerular Filtration Rate 65 mL/min (>60); Est Glom Filt Rate - Afr Amer 79 mL/min (>60); Globulin 3.5 g/dL (2.2-4.2); Glucose 103 mg/dL (74-106); High Density Lipoprotein 59 mg/dL; Potassium 4.3 mmol/L (3.5-5.1); Protein, Total 6.8 g/dL (6.4-8.2); Sodium Level 141 mmol/L (136-145); Triglycerides 142 mg/dL; Very Low Density Lipoprotein 28 mg/dL (5-40)
== END | disposition home or self-care (01) ==
LOC: POLAB3 09:51
PROVIDERS: PCP Family Medicine Geriatric Medicine; Visit Provider Family Medicine Geriatric Medicine
DX: I10 Essential (primary) hypertension (principal); E55.9 Vitamin D deficiency, unspecified; E78.5 Hyperlipidemia, unspecified
CPT/HCPCS: 36415; 80053; 80061; 82306; 84443; 85025

== ENCOUNTER → 2024-08-24 | Outpatient (CLI) | payer OTHER, SELFPAY ==
[2024-08-24 10:29] LABS: Absolute Lymphocyte Count 1.57 X10^3/uL (0.83-4.51); Absolute Neutrophil Count 3.8 X10^3/uL (2.0-7.7); Basophil# 0.04 X10^3/uL; Basophil% 0.7 % (0-1); Eosinophil# 0.04 X10^3/uL; Eosinophils% 0.7 % (0-5); Hematocrit 38.7 % (37-47); Hemoglobin 12.9 g/dL (12.0-15.0); Lymphocyte # 1.57 X10^3/ul (0.83-4.51); Mean Corp Hgb Conc 33.3 g/dL (32-36); Mean Corpuscular Hgb 29.5 pg (27.0-32.0); Mean Corpuscular Volume 88.4 fL (81-99); Mean Platelet Vol. 9.7 fl (6.2-12.0); Monocyte# 0.31 X10^3/uL; Monocyte% 5.3 % (0-10); NRBC Flagged by Analyzer 0 % (0-5); Neutrophil # 3.83 X10^3/uL (2.7-7.7); Platelet Count 240 K/mm3 (150-450); RBC Distribution Width CV 14.2 % (11.6-14.6); RBC Distribution Width SD 46.3 fl (35.1-43.9); Red Blood Count 4.38 M/mm3 (4.2-5.4); White Blood Count 5.8 K/mm3 (4.4-11.0)
[2024-08-24 12:09] LABS: ALB/GLOB Ratio 1.4 RATIO (0.9-2.4); AST(SGOT) 13 U/L (<=31); Alanine Aminotransfer ALT/SGPT 10 U/L (<=34); Alkaline Phosphatase 93 U/L (35-104); Anion Gap 11 (5-15); BUN 12 mg/dL (4-19); BUN/Creat Ratio 12.9 RATIO (10-20); Calcium,Total 9.5 mg/dL (7.6-11.0); Carbon Dioxide 23.1 mmol/L (21.0-32.0); Chloride 108 mmol/L (98-108); Cholesterol 195 mg/dL (<=200); Creatinine, Serum 0.91 mg/dL (0.70-1.20); EST Glomerular Filtration Rate 69 (>60); Globulin 2.8 g/dL (2.2-4.2); Glucose 96 mg/dL (70-99); High Density Lipoprotein 64 mg/dL; Low Density Lipoprotein Calc. 114 mg/dL; Protein, Total 6.8 g/dL (5.9-8.4); Sodium Level 142 mmol/L (133-145); Total Bilirubin 0.63 mg/dL (0.00-1.30); Triglycerides 88 mg/dL; Very Low Density Lipoprotein 18 mg/dL (5-40); Vitamin D,25 Hydroxy 26.4 ng/mL (30-100); cholesterol:hdl ratio screen 3.07
--- OUTSIDE RECORDS SUMMARY | 2024-08-24 19:06 | XMS RPT_ITS | CCD ---
Author Organization [facility] Care Team Providers Care [employer]dn[employer] Installation Supervisor Name Role Phone Ricky JASMINE, Jamarcus Hannah Primary Care Provider 1([facility] )[phone] Mayank, Dr. Jessie Sidhu Primary Care Provider 1([facility])[phone] Mayank, Dr. Jessie Sidhu Referring Provider 1([facility])[phone] GRANT Duncan Attending Provider 1([facility])[phone] MAYANK, JESSIE CHI Primary Care Unavailable Dr. Cyrus Nolasco Attending Provider 1([facility])[phone] BENSON Trevino Attending Provider 1([facility])[phone] Dr. Jessie Talley Chi Primary Care Provider 1([facility])[phone] Mayank, Dr. Jessie Sidhu Referring Provider 1([facility])[phone] GRANT Duncan Attending Provider 1([facility])[phone] Dr. Cyrus Nolasco Attending Provider 1([facility])[phone] BENSON Trevino Attending Provider 1([facility])[phone] Dr. Cyrus Nolasco Referring Provider 1([facility])[phone] Dr. Cyrus Nolasco Other Provider 1([facility])[phone] Orion Nicholson Other Provider MAYANK JASMINE, DR GALLO Primary Care Unavailable CYRUS NOLASCO DO Attending Unavailable DR SABINO TALLEY MD Primary Care Unavailable CYRUS NOLASCO DO Attending Unavailable Mayank, Jessie Chi Attending Unavailable Mayank, Jessie Chi Referring Unavailable Mayank, Jessie Chi Primary Care Unavailable Ignacio Medel Attending Unavailable Mayank, Jessie Chi Primary Care Unavailable Cyrus Nolasco Attending Unavailable Mayank, Jessie Chi Referring Unavailable Mayank, Jessie Chi Primary Care Unavailable Cyrus Nolasco Attending Unavailable Mayank, Jessie Chi Referring Unavailable Mayank, Jessie Chi Primary Care Unavailable Ignacio Medel Attending Unavailable Mayank, Jessie Chi Primary Care Unavailable Mayank, Jessie Chi Referring Unavailable Cyrus Nolasco Attending Unavailable Mayank, Jessie Chi Primary Care Unavailable Cyrus Nolasco Attending Unavailable Mayank, Jessie Chi Referring Unavailable Mayank, Jessie Chi Primary Care Unavailable Mayank, Jessie Chi Primary Care Unavailable Mayank, Jessie Chi Attending Unavailable Mayank, Jessie Chi Attending Unavailable Mayank, Jessie Chi Primary Care Unavailable Allergies Allergy Classification Reported Allergen(s) Allergy Type Date of Onset Reaction(s) Facility (12 sources) Sulfonamides (Antibiotic); Translations: [SULFA (SULFONAMIDE ANTIBIOTICS)] Propensity to adverse reactions [address] [facility] Work Phone: (10 sources) cat dander; Translations: [cat dander] Allergy to substance 1 Eye Swelling, sneezing [facility] Medications Current Medications Medication Drug Class(es) Dates Sig (Normalized) Sig (Original) acetaminophen 500 mg oral tablet (1 source) Start: 06-09-2023 take 1000 mg by mouth every six hours as needed Acetaminophen Active 1000 MG PO EVERY 6 HOURS NEEDED June 09, 2023 12:00am apixaban 2.5 mg oral tablet (1 source) Factor Xa Inhibitor Start: 06-09-2023 take 1 tablet by mouth twice daily in the morning Apixaban (Eliquis) 2.5 mg tablet Active 2.5 MG PO TWICE A DAY June 09, 2023 12:00am Begin morning after surgery cephalexin 500 mg oral capsule (1 source) Cephalosporin Antibacterial Start: 06-09-2023 Cephalexin Active 2000 MG PO EVERY 8 HOURS 8 June 09, 2023 12:00am take 4 tabs at 9:00 pm and 4 tabs after 5 am when you wake up cholecalciferol 0.025 mg oral capsule (1 source) Vitamin D Start: 04-28-2023 take 1 capsule by mouth once daily Cholecalciferol (Vitamin D3) (Vitamin D3) 25 mcg (1,000 unit) capsule Active 25 MCG PO DAILY April 28, 2023 1:00am citalopram 20 mg oral tablet (8 sources) Serotonin Reuptake Inhibitor Start: 06-06-2020 take 1 tablet by mouth once daily Citalopram Active 1 TAB PO DAILY June 05, 2020 11:00pm Ferrous Sulfate-Vitamin C (17 sources) Start: 10-10-2020 take 1 capsule by mouth every other day Ferrous Sulfate-Vitamin C Active 1 CAP PO .every other day October 10, 2020 9:41am Start: 10-10-2020 take 1 capsule by mo ut every other day Ferrous Sulfate-Vitamin C Active 1 CAP PO .every other day October 10, 2020 10:41am Start: 07-12-2020 End: 10-10-2020 take 1 capsule by mouth once daily Ferrous Sulfate-Vitamin C Discontinued 1 CAP PO DAILY July 12, 2020 2:07pm October 10, 2020 10:41am Start: 07-12-2020 End: 10-10-2020 take 1 capsule by mouth once daily Ferrous Sulfate-Vitamin C Discontinued 1 CAP PO DAILY July 11, 2020 11:00pm October 10, 2020 9:41am Start: 07-12-2020 End: 10-10-2020 take 1 capsule by mouth once daily Ferrous Sulfate-Vitamin C Discontinued 1 CAP PO DAILY July 12, 2020 12:00am October 10, 2020 10:41am lisinopril 20 mg oral tablet (1 source) Angiotensin Converting Enzyme Inhibitor Start: 04-28-2023 take 20 mg by mouth once daily Lisinopril Active 20 MG PO DAILY April 28, 2023 1:00am loperamide hydrochloride 2 mg oral capsule (10 sources) Opioid Agonist Start: 07-12-2020 take 2 mg by mouth once daily Loperamide Active 2 MG PO DAILY July 12, 2020 12:00am Start: 01-20-2019 take 1 capsule by [facility] twice daily loperamide (IMODIUM) 2 mg cap(s) Take 1 capsule by mouth twice daily. 180 capsule 1 01/20/2019 Active Comment on above: Take 1 capsule by [facility] twice daily. oxyCODONE hydrochloride 5 mg oral tablet (19 sources) Opioid Agonist Start: 06-09-2023 take 5-10 mg by mouth every four hours Oxycodone Active 5 - 10 MG PO Q4H 60 7 June 09, 2023 Start: 08-30-2020 End: 09-04-2020 take 5 mg by mouth every six hours Oxycodone Discontinued 5 MG PO EVERY 6 HOURS 20 5 August 30, 2020 September 04, 2020 12:01am Start: 07-17-2020 End: 08-01-2020 take 5-10 mg by mouth every four hours Oxycodone Discontinued 5 - 10 MG PO Q4H 50 7 July 17, 2020 August 01, 2020 11:22am vilazodone hydrochloride 40 mg oral tablet (1 source) Start: 04-28-2023 take 40 mg by mouth once daily Vilazodone Active 40 MG PO DAILY April 28, 2023 1:00am Completed/Discontinued Medications Medication Drug Class(es) Dates Sig (Normalized) Sig (Original) 12 hr buPROPion hydrochloride 150 mg extended release oral tablet (9 sources) Aminoketone Start: 01-04-2014 End: 06-06-2020 take 150 mg by mouth once daily Bupropion Hcl Discontinued 150 MG PO DAILY January 04, 2014 12:00am June 06, 2020 10:30am DULoxetine 60 mg delayed release oral capsule (1 source) Serotonin and Norepinephrine Reuptake Inhibitor Start: 08-25-2019 DULoxetine (CYMBALTA) 60 mg capsule Take one twice a day. 60 capsule 5 08/25/2019 Active Comment on above: Take one twice a day . fluticasone propionate 0.05 mg/actuat metered dose nasal spray (1 source) Corticosteroid Start: 09-17-2019 take 2 spray(s) by mouth once daily fluticasone (FLONASE) 50 mcg/actuation nasal spray Indications: Sinus congestion Use 2 Sprays in each nostril once daily. Rinse mouth after use. 1 Bottle 0 09/17/2019 Active Comment on above: Use 2 Sprays in each nostril once daily. Rinse mouth after use. hydroCHLOROthiazide 12.5 mg / lisinopril 20 mg oral tablet (9 sources) Thiazide Diuretic, Angiotensin Converting Enzyme Inhibitor Start: 01-03-2020 take 1 tablet by mouth once daily lisinopril-hydro chlorothiazide (PRINZIDE,ZESTOR ETIC) 20-12.5 mg per tablet Take 1 tablet by mouth once daily. 30 tablet 5 01/03/2020 Active Start: 01-04-2014 take 1 tablet by curt once daily Lisinopril-Hydrochlorothiazide Active 1 TABLET PO DAILY January 03, 2014 11:00pm Comment on above: Take 1 tablet by curt th once daily. meclizine hydrochloride 12.5 mg oral tablet (1 source) Antiemetic Start: 09-17-19 20 take 1 tablet by mouth every six hours as needed for dizziness meclizine (ANTIVERT) 12.5 mg tab Indications: Vertigo Take 1 tablet by mouth every 6 hours as needed (dizziness). 8 tablet 0 09/17/2019 Active Comment on above: Take 1 tablet by curt th every 6 hours as needed (dizziness). meloxicam 15 mg oral tablet (19 sources) Nonsteroidal Anti-inflammatory Drug Start: 02-10-20 19 End: 10-11-19 21 take 1 tablet by mouth once daily Meloxicam (Mobic) 15 mg tablet Discontinued 15 MG PO DAILY July 12, 2020 2:03pm October 10, 2020 10:41am Do not take in conjunction with other NSAIDs Tylenol is okay Comment on above: TAKE 1 TABLET BY CURT TH EVERY DAY pantoprazole 40 mg delayed release oral tablet (10 sources) Proton Pump Inhibitor Start: 01-05-20 14 take 1 tablet by mouth twice daily before mealtime pantoprazole DR (PROTONIX) 40 mg tablet Indications: GERD without esophagitis Take 1 tablet by mouth twice daily. Take on empty stomach, 1/2 hr before meal. 60 tablet 5 06/23/2019 Active Start: 01-04-2014 take 1 tablet by curt th once daily Pantoprazole (Protonix) 40 MG tablet Active 40 MG PO DAILY January 03, 2014 11:00pm Comment on above: Take 1 tablet by curt twice daily. Take on empty stomach, 1/2 hr before meal. sertraline 100 mg oral tablet (9 sources) Serotonin Reuptake Inhibitor Start: 01-04-2014 End: 06-06-2020 take 100 mg by mouth once daily Sertraline Discontinued 100 MG PO DAILY January 04, 2014 12:00am June 06, 2020 10:30am sucralfate 1000 mg oral tablet (1 source) Aluminum Complex Start: 06-23-2019 take 1 tablet by mouth twice daily sucralfate (CARAFATE) 1 gram tablet Take 1 tablet by mouth twice daily. 60 tablet 0 06/23/2019 Active Comment on above: Take 1 tablet by [facility] twice daily. Problems Active Problems Problem Classification Problem Date Documented Da te Episodic/Chronic Esophageal disorders (1 source) Gastroesophageal reflux disease without esophagitis; Translations: [Gastro-esophageal reflux disease without esophagitis] Onset: 9 01-20-2019 Chronic Essential hypertension (2 sources) Essential hypertension; Translations: [Essential (primary) hypertension] Onset: 8 01-20-2019 Chronic Mood disorders (1 source) Depressive disorder; Translations: [Depression] Onset: 8 01-20-2019 Chronic Osteoarthritis (9 sources) Osteoarthritis of left knee joint; Translations: [Unilateral primary osteoarthritis, left knee] Onset: 4 02-09-2023 Chronic Other aftercare (9 sources) Follow-up status; Translations: [Encounter for other orthopedic aftercare] 08-01-2020 Episodic Other connective tissue disease (1 source) Presence of left artificial knee joint; Translations: [Presence of left artificial knee joint] Onset: 5 Chronic Other gastrointestinal disorders (1 source) Irritable bowel syndrome with diarrhea; Translations: [Irritable bowel syndrome with diarrhea] Onset: 9 01-20-2019 Chronic Other nervous system disorders (1 source) Right-sided piriformis syndrome; Translations: [Lesion of sciatic nerve, right lower limb] Onset: 9 01-21-2019 Chronic Other nervous system disorders (9 sources) Acute postoperative pain; Translations: [Other acute postprocedural pain] 07-17-2020 Episodic Other non-traumatic joint disorders (2 sources) Pain in left knee; Translations: [Pain in joint, lower leg] 04-27-2023 Episodic Other screening for suspected conditions (not mental [...] Onset: 9 01-20-2019 Chronic Sprains and strains (9 sources) Injury of articular cartilage of left knee joint; Translations: [Sprain of other specified parts of left knee, initial encounter] Onset: 02-09-2023 Episodic Past or Other Problems Problem Classification Problem Date Documented Da te Episodic/Chronic Deficiency and other anemia (1 source) Iron deficiency anemia; Translations: [Iron deficiency anemia, unspecified] Onset: 01-24-2019 01-24-2019 Episodic Other aftercare (1 source) Encounter for other orthopedic aftercare; Translations: [Encounter for other orthopedic aftercare] Onset: 09-04-2023 Episodic Other connective tissue disease (1 source) [...] sciatica, right side] Onset: 01-20-2019 01-20-2019 Episodic Urinary tract infections (1 source) Urinary tract infection, site not specified; Translations: [Urinary tract infection, site not specified] Onset: 01-16-2024 Episodic Results Test Name Value Interpretation Reference Range Facility Knee 3 Viewson 06-08-2024 Knee 3 Views [facility] Imaging Services [address] [place] [address] [id number] Knee 3 Views MR#: [id number] Acct: [id number] Name: ALAYNA JARRELL Rep #: [id number] : 1955 F 69 From: [facility] PCP: Dr. Jessie Talley MD Status: DEP AMB Study: Knee 3 Views Date of Exam: 06/08/24 Exam# [id number] Ordering Dr: Cyrus Nolasco DO EXAM: Three-view left knee series CLINICAL HISTORY: 1 year follow-up from left total knee arthroplasty. COMPARISON: Left knee study of 07/20/2023. TECHNIQUE: Three-view left knee series FINDINGS: No significant left knee joint effusion is seen. A left total knee prosthesis remains in place, without evidence of loosening or metallic fracture. Stable alignment is seen. No fracture or dislocation is evident. Reading Location: [address] CC: Dr. Cyrus Nolasco DO; Dr. Jessie Talley MD Public Health Informatician: Signed Normal [facility] Orthopedic Visit Reporton Orthopedic Visit Report [facility] [address] [place] [address] [address] [place] [address] OFFICE VISIT Date of Service: 06/08/24 MR#: [id number] Acct: [id number] Name: ALAYNA JARRELL Rep #: [id number] : 1955 Provider: Dr. Cyrus olsen DO Age/Sex: 69/F Location: [facility] Status: Signed Intake Vital Signs 06/09/23 07:23 Height 5 ft 8 in Intake Visit Reasons: LEFT KNEE Allergies cat dander Allergy (Verified 06/08/24 08:12) Eye Swelling, sneezing Sulfa (Sulfonamide Antibiotics) Adverse Reaction (Severe, Verified 06/08/24 08:12) itching Have you fallen in the past year?: No PFSH Medical History History of steroid therapy Blackout History of hiatal hernia History of IBS Gastric reflux Sleep apnea Shortness of breath on exertion History of edema Acute medial meniscal injury of left knee Primary osteoarthritis of left knee Wears contact lenses Wears partial dentures Cancer Alcohol use Arthritis Bladder disease Easy bruising Restless legs Injury of head and neck Non-smoker Leg cramps History of stress test Wears glasses Anxiety Depression Post-menopausal Ulcer Hiatal hernia GI bleed GERD (gastroesophageal reflux disease) CPAP (continuous positive airway pressure) dependence HTN (hypertension) Surgical History Hx of surgical procedure Hx of shoulder surgery History of cholecystectomy Hx of knee surgery Hx of hysterectomy Social History Smoking Status: Never smoker HPI LEFT KNEE Details: This documentation accurately reflects the service provided and the decisions made by me, Dr. Cyrus Nolasco, DO 06/08/24 0753. Part of today???s visit was documented by Catrina HOFFMANN, acting as scribe. ALAYAN JARRELL is a 69 year old F here today for 1 year post-op left TKA dos: 06/09/23. She states that she is doing well and happy she had it done, she does does have mild anterior knee pain when standing up from a seated position. She also get occasional pain when walking up and down steps. Ortho Exam General General: Yes no acute distress Neurologic: Yes alert and Yes oriented x3 Psychologic: Yes reasonable and appropriate Left Knee Skin/Wound: No ecchymosis, No erythema and No swelling Homans Sign: No Knee ROM: Yes ROM-Extension -20 to 0 and Yes ROM-Flexion 0-140 (128) Examination: No med jt line tenderness and No Lat jt line tenderness Stability: NML: Valgus 0, NML: Valgus 30, NML: Varus 0 and NML: Varus 30 Apprehension with Lateral Translation: No Supplemental Info 06/08/2024 x-ray left knee: Status post press-fit total knee arthroplasty with good interfaces and position 06/09/2023 left total knee arthroplasty Dr. Nolasco 03/31/2023 MRI left knee [facility] report: Complete radial tear of the medial meniscus extending from the periphery to the intermargin in the posterior horn the medial femoral condyle does demonstrate a large area predominantly high-grade greater than 50% cartilage loss or full- thickness cartilage loss the medial tibial plateau demonstrates moderate size area predominantly high-grade greater than 50% cartilage loss lateral femoral condyle demonstrates partial-thickness cartilage loss and small areas as well as the lateral tibial plateau the patella does demonstrate large areas of predominantly high-grade greater than 50% cartilage loss and fissuring. The trochlea demonstrate small areas of partial-thickness cartilage loss there is small subchondral insufficiency fracture of the medial tibial plateau with surrounding edema moderate joint effusion 01/19/2023 x-ray left knee: Mild spurring noted of the medial compartment with possible early joint space narrowing on the notch view there is more definitive spurring noted of the medial femoral condyle medial tibial plateau and tibial spines, of note there is no patellofemoral view Coding Level of Care Code Off vis,est,level 2 Diagnoses Status post total left knee replacement Z96.652 Laterality: left Assessment and Plan Assessment and Plan (1) S/P total knee arthroplasty: Status: Acute Qualifiers: Laterality: left Qualified Code(s): Z96.652 - Presence of left artificial knee joint Orders: Orders Knee 3 Views Today Z96.652 - Presence of left artificial knee joint Plan Patient is here today for 1 year post-op left TKA dos: 06/09/23. I obtained and reviewed xrays taken today and advised patient that her hardware is in good placement. I advised her that the mechanical feel in her knee is completely normal. She is happy with her knee. At this point she does not need any further antibiotic for dental cleanings only major dental procedures no further x-rays unle (more content not included)... Normal [facility] CBC W/Diff, Automatedon 12-0 Absolute Lymph 2.15 X10 3/uL Normal 0.83-4.51 [facility] Comment on above: Performed By: #### L 501.9520, L100.0100, L500.4050, L500.4100, L506.1000 ####[facility] [address] [place], [address] Absolute Neut 3.4 X10 3/uL Normal 2.0-7.7 [facility] Comment on above: Performed By: #### L 501.9520, L100.0100, L500.4050, L500.4100, L506.1000 ####[facility] [address] [place], [address] Basophils/100 WBC (Bld) 1.0 % Normal 0-1 [facility] Comment on above: Performed By: #### L 501.9520, L100.0100, L500.4050, L500.4100, L506.1000 ####[facility] [address] [place], [address] Eosinophils/100 WBC (Bld) 1.3 % Normal 0-5 [facility] Comment on above: Performed By: #### L 501.9520, L100.0100, L500.4050, L500.4100, L506.1000 ####[facility] [address] [place], [address] Erythrocyte distribution width (RBC) [Ratio] 13.0 % Normal 11.6-14.6 [facility] Comment on above: Performed By: #### L 501.9520, L100.0100, L500.4050, L500.4100, L506.1000 ####[facility] [address] [place], [address] Hematocrit (Bld) [Volume fraction] 42.2 % Normal 37-47 [facility] Comment on above: Performed By: #### L 501.9520, L100.0100, L500.4050, L500.4100, L506.1000 ####[facility] [address] [place], [address] Hemoglobin (Bld) [Mass/Vol] 13.9 g/dL Normal 12.0-15.0 [facility] Comment on above: Performed By: #### L 501.9520, L100.0100, L500.4050, L500.4100, L506.1000 ####[facility] [address] [place], [address] IG% 0.300 Normal 0.0-0.9 [facility] Comment on above: Result Comment: IG% - Immature Granulocytes (promyelocytes, myelocytes and metamyelocytes) > 1% indicates that a LEFT SHIFT is Present. Performed By: #### L 501.9520, L100.0100, L500.4050, L500.4100, L506.1000 ####[facility] [address] [place], [address] Lymphocytes/100 WBC (Bld) 35.4 % Normal 19-41 [facility] Comment on above: Performed By: #### L 501.9520, L100.0100, L500.4050, L500.4100, L506.1000 ####[facility] [address] [place], [address] MCH (RBC) [Entitic mass] 30.5 pg Normal 27.0-32.0 [facility] Comment on above: Performed By: #### L 501.9520, L100.0100, L500.4050, L500.4100, L506.1000 ####[facility] [address] [place], [address] MCHC (RBC) [Mass/Vol] 32.9 g/dL Normal 32-36 [facility] Comment on above: Performed By: #### L 501.9520, L100.0100, L500.4050, L500.4100, L506.1000 ####[facility] [address] [place], [address] MCV (RBC) [Entitic vol] 92.5 fL Normal 81-99 [facility] Comment on above: Performed By: #### L 501.9520, L100.0100, L500.4050, L500.4100, L506.1000 ####[facility] [address] [place], [address] Monocytes/100 WBC (Bld) 6.1 % Normal 0-10 [facility] Comment on above: Performed By: #### L 501.9520, L100.0100, L500.4050, L500.4100, L506.1000 ####[facility] [address] [place], [address] Neutrophils/100 WBC (Bld) 55.9 % Normal 47-70 [facility] Comment on above: Performed By: #### L 501.9520, L100.0100, L500.4050, L500.4100, L506.1000 ####[facility] [address] [place], [address] Nucleated RBC (Bld) [#/Vol] 0 10*3/uL Normal 0-5 [facility] Comment on above: Performed By: #### L 501.9520, L100.0100, L500.4050, L500.4100, L506.1000 ####[facility] [address] [place], [address] Platelet mean volume (Bld) [Entitic vol] 9.7 fL Normal 6.2-12.0 [facility] Comment on above: Performed By: #### L 501.9520, L100.0100, L500.4050, L500.4100, L506.1000 ####[facility] [address] [place], [address] Platelets (Bld) [#/Vol] 299 10*3/uL Normal 150-450 [facility] Comment on above: Performed By: #### L 501.9520, L100.0100, L500.4050, L500.4100, L506.1000 ####[facility] [address] [place], [address] RBC (Bld) [#/Vol] 4.56 10*6/uL Normal 4.2-5.4 [facility] Comment on above: Performed By: #### L 501.9520, L100.0100, L500.4050, L500.4100, L506.1000 ####[facility] [address] [place], [address] RDW SD 44.3 fl High 35.1-43.9 [facility] Comment on above: Performed By: #### L 501.9520, L100.0100, L500.4050, L500.4100, L506.1000 ####[facility] [address] [place], [address] WBC (Bld) [#/Vol] 6.1 10*3/uL Normal 4.4-11.0 [facility] Comment on above: Performed By: #### L 501.9520, L100.0100, L500.4050, L500.4100, L506.1000 ####[facility] [address] [place], [address] Comprehensive Metabolic [facility] ilon 02-22-2024 Albumin [Mass/Vol] 3.3 g/dL Normal 3.2-5.0 [facility] Comment on above: Performed By: #### L 501.9520, L100.0100, L500.4050, L500.4100, L506.1000 ####[facility] [address] [place], [address] Albumin/Globulin [Mass ratio] 0.9 {ratio} Normal 0.9-2.4 [facility] Comment on above: Performed By: #### L 501.9520, L100.0100, L500.4050, L500.4100, L506.1000 ####[facility] [address] [place], [place], [address] ALK P 120 U/L High 45-117 [facility] Comment on above: Performed By: #### L 501.9520, L100.0100, L500.4050, L500.4100, L506.1000 ####[facility] [address] [place], [address] ALT [Catalytic activity/Vol] 20 U/L Normal 13-56 [facility] Comment on above: Performed By: #### L 501.9520, L100.0100, L500.4050, L500.4100, L506.1000 ####[facility] [address] [place], [address] AST [Catalytic activity/Vol] 15 U/L Normal 15-37 [facility] Comment on above: Performed By: #### L 501.9520, L100.0100, L500.4050, L500.4100, L506.1000 ####[facility] [address] [place], [address] Bilirubin [Mass/Vol] 0.40 mg/dL Normal 0.20-1.00 [facility] Comment on above: Result Comment: For patients on eltrombopag therapy, use of Dimension [place] TBIL is not recommended. Performed By: #### L 501.9520, L100.0100, L500.4050, L500.4100, L506.1000 ####[facility] [address] [place], [address] BUN/CRE 17.4 RATIO Normal 10-20 [facility] Comment on above: Performed By: #### L 501.9520, L100.0100, L500.4050, L500.4100, L506.1000 ####[facility] [address] [place], [address] CA,Total 9.6 mg/dL Normal 8.5-10.1 [facility] Comment on above: Performed By: #### L 501.9520, L100.0100, L500.4050, L500.4100, L506.1000 ####[facility] [address] [place], [address] Chloride [Moles/Vol] 108 mmol/L High 98-107 [facility] Comment on above: Performed By: #### L 501.9520, L100.0100, L500.4050, L500.4100, L506.1000 ####[facility] [address] [place], [address] CO2 [Moles/Vol] 28.0 mmol/L Normal 21.0-32.0 [facility] Comment on above: Performed By: #### L 501.9520, L100.0100, L500.4050, L500.4100, L506.1000 ####[facility] [address] [place], [address] Creatinine [Mass/Vol] 0.92 mg/dL Normal 0.55-1.02 [facility] Comment on above: Result Comment: The validity of the calculated GFR GFRAA in patients over 70 years has not been determined. Clinical correlation is essential. Performed By: #### L 501.9520, L100.0100, L500.4050, L500.4100, L506.1000 ####[facility] [address] [place], [address] EST GFR - AA 79 mL/min Normal >60 [facility] Comment on above: Result Comment: Afri can Stateless GFR Calc Performed By: #### L 501.9520, L100.0100, L500.4050, L500.4100, L506.1000 ####[facility] [address] [place], [address] GAP 4 Low 5-15 [facility] Comment on above: Performed By: #### L 501.9520, L100.0100, L500.4050, L500.4100, L506.1000 ####[facility] [address] [place], [address] GFR/1.73 sq M.predicted among non-blacks MDRD (S/P/Bld) [Vol rate/Area] 65 mL/min/{1.73_m2} Normal >60 [facility] Comment on above: Result Comment: Non- GFR Calc Performed By: #### L 501.9520, L100.0100, L500.4050, L500.4100, L506.1000 ####[facility] [address] [place], [address] Globulin (S) [Mass/Vol] 3.5 g/dL Normal 2.2-4.2 [facility] Comment on above: Performed By: #### L 501.9520, L100.0100, L500.4050, L500.4100, L506.1000 ####[facility] [address] [place], [address] Glucose [Mass/Vol] 103 mg/dL Normal 74-106 [facility] Comment on above: Result Comment: Fast ing Glucose result from 100 to 125 mg/dL suggests IMPAIRED HOMEOSTASIS per A.D.A. criteria. Performed By: #### L 501.9520, L100.0100, L500.4050, L500.4100, L506.1000 ####[facility] [address] [place], [address] Potassium [Moles/Vol] 4.3 mmol/L Normal 3.5-5.1 [facility] Comment on above: Performed By: #### L 501.9520, L100.0100, L500.4050, L500.4100, L506.1000 ####[facility] [address] [place], [address] Sodium [Moles/Vol] 141 mmol/L Normal 136-145 [facility] Comment on above: Performed By: #### L 501.9520, L100.0100, L500.4050, L500.4100, L506.1000 ####[facility] [address] [place], [address] T PROT 6.8 g/dL Normal 6.4-8.2 [facility] Comment on above: Performed By: #### L 501.9520, L100.0100, L500.4050, L500.4100, L506.1000 ####[facility] [address] [place], [address] Urea nitrogen [Mass/Vol] 16 mg/dL Normal 7-18 [facility] Comment on above: Performed By: #### L 501.9520, L100.0100, L500.4050, L500.4100, L506.1000 ####[facility] [address] [place], [address] Lipid Profileon 02-22-2024 Cholesterol [Mass/Vol] 202 mg/dL High 200 [facility] Comment on above: Result Comment: <200 mg/dL Desirable 200-240 mg/dL Borderline >240 mg/dL High Risk Performed By: #### L 501.9520, L100.0100, L500.4050, L500.4100, L506.1000 ####[facility] [address] [place], [address] Cholesterol in HDL [Mass/Vol] 59 mg/dL Normal [facility] Comment on above: Result Comment: The drugs N-Acetylcysteine and Metamizole may falsely depress this assay. Reference Range HDL <40 mg/dL Low HDL Cholesterol HDL >or= 60 mg/dL High HDL Cholesterol Performed By: #### L 501.9520, L100.0100, L500.4050, L500.4100, L506.1000 ####[facility] [address] [place], [address] Cholesterol in LDL [Mass/Vol] 115 mg/dL Normal 0-130 [facility] Comment on above: Performed By: #### L 501.9520, L100.0100, L500.4050, L500.4100, L506.1000 ####[facility] [address] [place], [address] Cholesterol in VLDL [Mass/Vol] 28 mg/dL Normal 5-40 [facility] Comment on above: Performed By: #### L 501.9520, L100.0100, L500.4050, L500.4100, L506.1000 ####[facility] [address] [place], [address] Triglyceride [Mass/Vol] 142 mg/dL Normal [facility] Comment on above: Result Comment: The drugs N-Acetylcysteine and Metamizole may falsely depress this assay. Serum Triglycerides Reference Interval Normal <150 mg/dL Borderline high 150 - 199 mg/dL High 200 - 499 mg/dL Very High > or = 500 mg/dL Performed By: #### L 501.9520, L100.0100, L500.4050, L500.4100, L506.1000 ####[facility] [address] [place], [address] Thyroid Stim Hormone (TSH)on 02-22-2024 TSH 1.750 uIU/mL Normal 0.358-3.740 [facility] Comment on above: Performed By: #### L 501.9520, L100.0100, L500.4050, L500.4100, L506.1000 ####[facility] [address] [place], [address] Vitamin D,25 Hydroxyon 02-21 Vitamin D 25-OH 26.4 ng/mL Normal [facility] Comment on above: Result Comment: Gaby min D 25(OH) Status Range Deficiency <20 ng/mL (50nmol/L) Insufficiency 20 - 30 ng/mL (50 - 75 nmol/L) Sufficiency 30 - 100 ng/mL (75 - 250 nmol/L) Toxicity >100 ng/mL (>250 nmol/L) Performed By: #### L 501.9520, L100.0100, L500.4050, L500.4100, L506.1000 ####[facility] [address] [place], [address] Urine Cultureon 12-18-2023 [facility] Streptococcus agalactiae (B) Argillite Count 11,000-25,000 Streptococcus agalactiae (B): REACTION Ampicillin Islt MARIZA <=0.25 Penicillin G Islt MARIZA 0.12 S cefTRIAXone Islt MARIZA <=0.12 S Clindamycin Islt MARIZA <=0.25 S Clindamycin.induced Susc Islt NEG Linezolid Islt MARIZA <=2 S Vancomycin Islt MARIZA 0.5 S Normal [facility] Comment on above: Performed By: #### M 100.2200 #### [facility] Laboratory [address] [place], [address] Orthopedic Visit Reporton Orthopedic Visit Report [facility] [address] [place] [address] OFFICE VISIT Date of Service: 09/04/23 MR#: [id number] Acct: [id number] Name: ALAYNA JARRELL Rep #: [id number] : 1955 Provider: Dr. Cyrus olsen DO Age/Sex: 68/F Location: [facility] Status: Signed Intake Vital Signs 06/09/23 07:23 Height 5 ft 8 in Intake Visit Reasons: LEFT KNEE Chief Complaint: 12 week post-op Accompanied by: Self Is patient in pain?: Yes Pain scale (1-10): 4 Allergies cat dander Allergy (Verified 09/04/23 10:05) Eye Swelling, sneezing Sulfa (Sulfonamide Antibiotics) Adverse Reaction (Severe, Verified 09/04/23 10:05) itching Medications ???Medication ???Instructions ???Recorded ???Confirmed ???Type pantoprazole 40 mg tablet,delayed 40 mg PO BID 01/04/14 07/20/23 History release (Protonix) loperamide 2 mg capsule 2 mg PO DAILY 07/12/20 07/20/23 History cholecalciferol (vitamin D3) 25 25 mcg PO DAILY 04/28/23 07/20/23 History mcg (1,000 unit) capsule (Vitamin D3) lisinopril 20 mg tablet 20 mg PO DAILY 04/28/23 07/20/23 History vilazodone 40 mg tablet 40 mg PO DAILY 04/28/23 07/20/23 History acetaminophen 500 mg tablet 1,000 mg (2 x 500 mg) PO Q6H PRN 06/09/23 07/20/23 Rx #100 tabs ferrous sulfate 325 mg (65 mg 325 mg PO DAILY 09/04/23 09/04/23 History iron) tablet,delayed release [facility] Medical History (Updated 09/04/23 @ 10:10 by Cynthia Hannah MA) History of steroid therapy Blackout History of hiatal hernia History of IBS Gastric reflux Sleep apnea Shortness of breath on exertion History of edema Acute medial meniscal injury of left knee Primary osteoarthritis of left knee Wears contact lenses Wears partial dentures Cancer Alcohol use Arthritis Bladder disease Easy bruising Restless legs Injury of head and neck Non-smoker Leg cramps History of stress test Wears glasses Anxiety Depression Post-menopausal Ulcer Hiatal hernia GI bleed GERD (gastroesophageal reflux disease) CPAP (continuous positive airway pressure) dependence HTN (hypertension) Surgical History Hx of surgical procedure Hx of shoulder surgery History of cholecystectomy Hx of knee surgery Hx of hysterectomy Social History Smoking Status: Never smoker HPI LEFT KNEE Details: This documentation accurately reflects the service provided and the decisions made by me, Dr. Cyrus Nolasco, DO 09/04/23 0803. Part of today???s visit was documented by [ ], acting as scribe. ALAYNA JARRELL is a 68 year old F here today for 12 week post Left total knee arthroplasty CT guided Robotic Assisted dos 06/09/23. Overall she continues to improve and is better off than she was before surgery, patient states being in the pool feels good on her knee. Ortho Exam General General: Yes no acute distress Neurologic: Yes alert and Yes oriented x3 Psychologic: Yes reasonable and appropriate Left Knee Skin/Wound: No ecchymosis, No erythema and No swelling Knee ROM: No ROM-Extension -20 to 0 (10) and Yes ROM-Flexion 0-140 (118) Examination: No med jt line tenderness, No Lat jt line tenderness and No TTP Tibial tubercle Stability: NML: Anterior Drawer, NML: Posterior Drawer, NML: Valgus 0, NML: Valgus 30, NML: Varus 0 and NML: Varus 30 KNEE: Incision healed nicely no signs of infection or blood clot neurovascular intact lower extremity Supplemental Info 06/09/2023 left total knee arthroplasty Dr. Nolasco 03/31/2023 MRI left knee [facility] report: Complete radial tear of the medial meniscus extending from the periphery to the intermargin in the posterior horn the medial femoral condyle does demonstrate a large area predominantly high-grade greater than 50% cartilage loss or full- thickness cartilage loss the medial tibial plateau demonstrates moderate size area predominantly high-grade greater than 50% cartilage loss lateral femoral condyle demonstrates partial-thickness cartilage loss and small areas as well as the lateral tibial plateau the patella does demonstrate large areas of predominantly high-grade greater than 50% cartilage loss and fissuring. The trochlea demonstrate small areas of partial-thickness cartilage loss there is small subchondral insufficiency fracture of the medial tibial plateau with surrounding edema moderate joint effusion 01/19/2023 x-ray left knee: Mild spurring noted of the medial compartment with possible early joint space narrowing on the notch view there is more definitive spurring noted of the medial femoral condyle medial tibial plateau and tibial spines, of note there is no patellofemoral view Coding Level of Care Code Global Post Op Diagnoses (more content not included)... Normal [facility] CBC W/Diff, Automatedon - 0-2023 Absolute Lymph 1.80 X10 3/uL Normal 0.83-4.51 [facility] Comment on above: Performed By: #### L 500.4050, L501.9520, L506.1000, L100.0100, L500.4100 #### [facility] Laboratory [address] [place], [address] Absolute Neut 2.8 X10 3/uL Normal 2.0-7.7 [facility] Comment on above: Performed By: #### L 500.4050, L501.9520, L506.1000, L100.0100, L500.4100 #### [facility] [address] [place], [address] Basophils/100 WBC (Bld) 0.8 % Normal 0-1 [facility] Comment on above: Performed By: #### L 500.4050, L501.9520, L506.1000, L100.0100, L500.4100 #### [facility] [address] [place], [address] Eosinophils/100 WBC (Bld) 1.2 % Normal 0-5 [facility] Comment on above: Performed By: #### L 500.4050, L501.9520, L506.1000, L100.0100, L500.4100 #### [facility] [address] [place], [address] Erythrocyte distribution width (RBC) [Ratio] 15.7 % High 11.6-14.6 [facility] Comment on above: Performed By: #### L 500.4050, L501.9520, L506.1000, L100.0100, L500.4100 #### [facility] [address] [place], [address] Hematocrit (Bld) [Volume fraction] 35.1 % Low 37-47 [facility] Comment on above: Performed By: #### L 500.4050, L501.9520, L506.1000, L100.0100, L500.4100 #### [facility] [address] [place], [address] Hemoglobin (Bld) [Mass/Vol] 10.8 g/dL Low 12.0-15.0 [facility] Comment on above: Performed By: #### L 500.4050, L501.9520, L506.1000, L100.0100, L500.4100 #### [facility] [address] [place], [address] IG% 0.200 Normal 0.0-0.9 [facility] Comment on above: Result Comment: IG% - Immature Granulocytes (promyelocytes, myelocytes and metamyelocytes) > 1% indicates that a LEFT SHIFT is Present. Performed By: #### L 500.4050, L501.9520, L506.1000, L100.0100, L500.4100 #### [facility] [address] [place], [address] Lymphocytes/100 WBC (Bld) 35.8 % Normal 19-41 [facility] Comment on above: Performed By: #### L 500.4050, L501.9520, L506.1000, L100.0100, L500.4100 #### [facility] [address] [place], [address] MCH (RBC) [Entitic mass] 25.2 pg Low 27.0-32.0 [facility] Comment on above: Performed By: #### L 500.4050, L501.9520, L506.1000, L100.0100, L500.4100 #### [facility] [address] [place], [address] MCHC (RBC) [Mass/Vol] 30.8 g/dL Low 32-36 [facility] Comment on above: Performed By: #### L 500.4050, L501.9520, L506.1000, L100.0100, L500.4100 #### [facility] [address] [place], [address] MCV (RBC) [Entitic vol] 81.8 fL Normal 81-99 [facility] Comment on above: Performed By: #### L 500.4050, L501.9520, L506.1000, L100.0100, L500.4100 #### [facility] [address] [place], [address] Monocytes/100 WBC (Bld) 6.2 % Normal 0-10 [facility] Comment on above: Performed By: #### L 500.4050, L501.9520, L506.1000, L100.0100, L500.4100 #### [facility] [address] [place], [address] Neutrophils/100 WBC (Bld) 55.8 % Normal 47-70 [facility] Comment on above: Performed By: #### L 500.4050, L501.9520, L506.1000, L100.0100, L500.4100 #### [facility] [address] [place], [address] Nucleated RBC (Bld) [#/Vol] 0 10*3/uL Normal 0-5 [facility] Comment on above: Performed By: #### L 500.4050, L501.9520, L506.1000, L100.0100, L500.4100 #### [facility] [address] [place], [address] Platelet mean volume (Bld) [Entitic vol] 9.8 fL Normal 6.2-12.0 [facility] Comment on above: Performed By: #### L 500.4050, L501.9520, L506.1000, L100.0100, L500.4100 #### [facility] [address] [place], [address] Platelets (Bld) [#/Vol] 297 10*3/uL Normal 150-450 [facility] Comment on above: Performed By: #### L 500.4050, L501.9520, L506.1000, L100.0100, L500.4100 #### [facility] [address] [place], [address] RBC (Bld) [#/Vol] 4.29 10*6/uL Normal 4.2-5.4 [facility] Comment on above: Performed By: #### L 500.4050, L501.9520, L506.1000, L100.0100, L500.4100 #### [facility] [address] [place], [address] RDW SD 47.0 fl High 35.1-43.9 [facility] Comment on above: Performed By: #### L 500.4050, L501.9520, L506.1000, L100.0100, L500.4100 #### [facility] [address] [place], [address] WBC (Bld) [#/Vol] 5.0 10*3/uL Normal 4.4-11.0 [facility] Comment on above: Performed By: #### L 500.4050, L501.9520, L506.1000, L100.0100, L500.4100 #### [facility] [address] [place], [address] Comprehensive Metabolic Prof ilon 08-24-2023 Albumin [Mass/Vol] 3.4 g/dL Normal 3.2-5.0 [facility] Comment on above: Performed By: #### L 500.4050, L501.9520, L506.1000, L100.0100, L500.4100 #### [facility] [address] [place], [address] Albumin/Globulin [Mass ratio] 0.9 {ratio} Normal 0.9-2.4 [facility] Comment on above: Performed By: #### L 500.4050, L501.9520, L506.1000, L100.0100, L500.4100 #### [facility] [address] [place], [address] ALK P 121 U/L High 45-117 [facility] Comment on above: Performed By: #### L 500.4050, L501.9520, L506.1000, L100.0100, L500.4100 #### [facility] [address] [place], [address] ALT [Catalytic activity/Vol] 14 U/L Normal 13-56 [facility] Comment on above: Performed By: #### L 500.4050, L501.9520, L506.1000, L100.0100, L500.4100 #### [facility] [address] [place], [address] AST [Catalytic activity/Vol] 12 U/L Low 15-37 [facility] Comment on above: Performed By: #### L 500.4050, L501.9520, L506.1000, L100.0100, L500.4100 #### [facility] [address] [place], [address] Bilirubin [Mass/Vol] 0.40 mg/dL Normal 0.20-1.00 [facility] Comment on above: Result Comment: For patients on eltrombopag therapy, use of Dimension [place] TBIL is not recommended. Performed By: #### L 500.4050, L501.9520, L506.1000, L100.0100, L500.4100 #### [facility] [address] [place], [address] BUN/CRE 18.8 RATIO Normal 10-20 [facility] Comment on above: Performed By: #### L 500.4050, L501.9520, L506.1000, L100.0100, L500.4100 #### [facility] [address] [place], [address] CA,Total 9.3 mg/dL Normal 8.5-10.1 [facility] Comment on above: Performed By: #### L 500.4050, L501.9520, L506.1000, L100.0100, L500.4100 #### [facility] [address] [place], [address] Chloride [Moles/Vol] 111 mmol/L High 98-107 [facility] Comment on above: Performed By: #### L 500.4050, L501.9520, L506.1000, L100.0100, L500.4100 #### [facility] [address] [place], [address] CO2 [Moles/Vol] 25.0 mmol/L Normal 21.0-32.0 [facility] Comment on above: Performed By: #### L 500.4050, L501.9520, L506.1000, L100.0100, L500.4100 #### [facility] [address] [place], [address] Creatinine [Mass/Vol] 0.96 mg/dL Normal 0.55-1.02 [facility] Comment on above: Result Comment: The validity of the calculated GFR GFRAA in patients over 70 years has not been determined. Clinical correlation is essential. Performed By: #### L 500.4050, L501.9520, L506.1000, L100.0100, L500.4100 #### [facility] [address] [place], [address] EST GFR - AA 75 mL/min Normal >60 [facility] Comment on above: Result Comment: Afri can Stateless GFR Calc Performed By: #### L 500.4050, L501.9520, L506.1000, L100.0100, L500.4100 #### [facility] [address] [place], [address] GAP 4 Low 5-15 [facility] Comment on above: Performed By: #### L 500.4050, L501.9520, L506.1000, L100.0100, L500.4100 #### [facility] [address] [place], [address] GFR/1.73 sq M.predicted among non-blacks MDRD (S/P/Bld) [Vol rate/Area] 62 mL/min/{1.73_m2} Normal >60 [facility] Comment on above: Result Comment: Non- GFR Calc Performed By: #### L 500.4050, L501.9520, L506.1000, L100.0100, L500.4100 #### [facility] [address] [place], [address] Globulin (S) [Mass/Vol] 3.9 g/dL Normal 2.2-4.2 [facility] Comment on above: Performed By: #### L 500.4050, L501.9520, L506.1000, L100.0100, L500.4100 #### [facility] [address] [place], [address] Glucose [Mass/Vol] 103 mg/dL Normal 74-106 [facility] Comment on above: Result Comment: Fast ing Glucose result from 100 to 125 mg/dL suggests IMPAIRED HOMEOSTASIS per A.D.A. criteria. Performed By: #### L 500.4050, L501.9520, L506.1000, L100.0100, L500.4100 #### [facility] [address] [place], [address] Potassium [Moles/Vol] 4.0 mmol/L Normal 3.5-5.1 [facility] Comment on above: Performed By: #### L 500.4050, L501.9520, L506.1000, L100.0100, L500.4100 #### [facility] [address] [place], [address] Sodium [Moles/Vol] 140 mmol/L Normal 136-145 [facility] Comment on above: Performed By: #### L 500.4050, L501.9520, L506.1000, L100.0100, L500.4100 #### [facility] [address] [place], [address] T PROT 7.3 g/dL Normal 6.4-8.2 [facility] Comment on above: Performed By: #### L 500.4050, L501.9520, L506.1000, L100.0100, L500.4100 #### [facility] [address] [place], [address] Urea nitrogen [Mass/Vol] 18 mg/dL Normal 7-18 [facility] Comment on above: Performed By: #### L 500.4050, L501.9520, L506.1000, L100.0100, L500.4100 #### [facility] [address] [place], [address] Lipid Profileon 08-24-2023 Cholesterol [Mass/Vol] 201 mg/dL High 200 [facility] Comment on above: Result Comment: <200 mg/dL Desirable 200-240 mg/dL Borderline >240 mg/dL High Risk Performed By: #### L 500.4050, L501.9520, L506.1000, L100.0100, L500.4100 #### [facility] [address] [place], [address] Cholesterol in HDL [Mass/Vol] 76 mg/dL Normal [facility] Comment on above: Result Comment: The drugs N-Acetylcysteine and Metamizole may falsely depress this assay. Reference Range HDL <40 mg/dL Low HDL Cholesterol HDL >or= 60 mg/dL High HDL Cholesterol Performed By: #### L 500.4050, L501.9520, L506.1000, L100.0100, L500.4100 #### [facility] [address] [place], [address] Cholesterol in LDL [Mass/Vol] 108 mg/dL Normal 0-130 [facility] Comment on above: Performed By: #### L 500.4050, L501.9520, L506.1000, L100.0100, L500.4100 #### [facility] [address] [place], [address] Cholesterol in VLDL [Mass/Vol] 17 mg/dL Normal 5-40 [facility] Comment on above: Performed By: #### L 500.4050, L501.9520, L506.1000, L100.0100, L500.4100 #### [facility] [address] [place], [address] Triglyceride [Mass/Vol] 86 mg/dL Normal [facility] Comment on above: Result Comment: The drugs N-Acetylcysteine and Metamizole may falsely depress this assay. Serum Triglycerides Reference Interval Normal <150 mg/dL Borderline high 150 - 199 mg/dL High 200 - 499 mg/dL Very High > or = 500 mg/dL Performed By: #### L 500.4050, L501.9520, L506.1000, L100.0100, L500.4100 #### [facility] [address] [place], [address] Thyroid Stim Hormone (TSH)on 08-24-2023 TSH 1.83 uIU/mL Normal 0.358-3.74 [facility] Comment on above: Performed By: #### L 500.4050, L501.9520, L506.1000, L100.0100, L500.4100 ####[facility] [address] [place], [address] Vitamin D,25 Hydroxyon 08-23 Vitamin D 25-OH 27.8 ng/mL Normal [facility] Comment on above: Result Comment: Gaby min D 25(OH) Status Range Deficiency <20 ng/mL (50nmol/L) Insufficiency 20 - 30 ng/mL (50 - 75 nmol/L) Sufficiency 30 - 100 ng/mL (75 - 250 nmol/L) Toxicity >100 ng/mL (>250 nmol/L) Performed By: #### L 500.4050, L501.9520, L506.1000, L100.0100, L500.4100 #### [facility] [address] [facility] [place], [address] Knee 3 Viewson 07-20-2023 Knee 3 Views [facility] [address] [place] [address] Knee 3 Views MR#: [id number] Acct: [id number] Name: ALAYNA JARRELL Rep #: [id number] : 1955 F 68 From: Constantino Vincent MD PCP: Dr. Jessie Talley MD Status: DEP AMB Study: Knee 3 Views Date of Exam: 07/20/23 Exam# [id number] Ordering Dr: Cyrus Nolasco DO [id number] STUDY: X-RAY - LEFT KNEE REASON FOR EXAM: Female, 68 years old. Pain. TECHNIQUE: 3 views of the left knee. COMPARISON: Left knee radiographs dated 06/09/2023. FINDINGS: Again seen is a left total knee arthroplasty with patellar resurfacing. The orthopedic hardware components are intact. There is no periprosthetic fracture. There is a moderate left knee joint effusion. Normal proximal tibiofibular articulation. RAD/Knee 3 Views IMPRESSION: Left total knee arthroplasty, with no periprosthetic fracture. Moderate left knee joint effusion. Electronically Signed: Constantino Vincent MD at 11:30 EDT Reading Location ID and State: [facility] / [place] , Service support , CC: Dr. Cyrus Nolasco DO; Dr. Jessie Talley MD Public Health Informatician: Signed Normal [facility] Orthopedic Visit Reporton Orthopedic Visit Report [facility] [address] [place] [address] OFFICE VISIT Date of Service: 07/20/23 MR#: [id number] Acct: [id number] Name: ALAYNA JARRELL Rep #: [id number] : 1955 Provider: Dr. Cyrus olsen DO Age/Sex: 68/F Location: [facility] Status: Signed Intake Vital Signs 04/06/23 13:05 06/09/23 07:23 Height 5 ft 8 in 5 ft 8 in Intake Visit Reasons: left knee Accompanied by: Self Is patient in pain?: Yes Allergies cat dander Allergy (Verified 07/20/23 09:57) Eye Swelling, sneezing Sulfa (Sulfonamide Antibiotics) Adverse Reaction (Severe, Verified 07/20/23 09:57) itching Medications pantoprazole 40 mg tablet,delayed release (Protonix) 40 mg PO BID 01/04/14 [History Confirmed 07/20/23] loperamide 2 mg capsule 2 mg PO DAILY 07/12/20 [History Confirmed 07/20/23] cholecalciferol (vitamin D3) 25 mcg (1,000 unit) capsule (Vitamin D3) 25 mcg PO DAILY 04/28/23 [History Confirmed 07/20/23] lisinopril 20 mg tablet 20 mg PO DAILY 04/28/23 [History Confirmed 07/20/23] vilazodone 40 mg tablet 40 mg PO DAILY 04/28/23 [History Confirmed 07/20/23] acetaminophen 500 mg tablet 1,000 mg (2 x 500 mg) PO Q6H PRN #100 tabs 06/09/23 [Rx Confirmed 07/20/23] PFSH Medical History Acute medial meniscal injury of left knee Alcohol use Anxiety Arthritis Blackout Bladder disease Cancer CPAP (continuous positive airway pressure) dependence Depression Easy bruising Gastric reflux GERD (gastroesophageal reflux disease) GI bleed Hiatal hernia History of edema History of hiatal hernia History of IBS History of steroid therapy History of stress test HTN (hypertension) Injury of head and neck Leg cramps Low iron Non-smoker Post-menopausal Primary osteoarthritis of left knee Restless legs Shortness of breath on exertion Sleep apnea Ulcer Wears contact lenses Wears glasses Wears partial dentures Surgical History History of cholecystectomy Hx of hysterectomy Hx of knee surgery Hx of shoulder surgery Hx of surgical procedure Social History Smoking Status: Never smoker HPI left knee Details: This documentation accurately reflects the service provided and the decisions made by me, Dr. Cyrus Nolasco, DO 07/20/23 0815. Part of today???s visit was documented by [ ], acting as scribe. ALAYNA JARRELL is a 68 year old F here today for s/p Left total knee arthroplasty CT guided Robotic Assisted dos 06/09/23. Patient states that she was doing a lot better and then last Thursday at physical therapy. She states that she was pushed very hard at physical therapy, and has been sore since. She had decreased range of motion after. She notes that she is slowly improve again. Patients incision looks well healed with no signs of infection. She takes tylenol for pain as needed. Ortho Exam General General: Yes no acute distress Neurologic: Yes alert and Yes oriented x3 Psychologic: Yes reasonable and appropriate Right Knee Patella Translation: 1 Left Knee Skin/Wound: Yes healed, No ecchymosis, No erythema and Yes swelling Knee ROM: Yes ROM-Extension -20 to 0 (-4) and Yes ROM-Flexion 0-140 (118) Examination: No med jt line tenderness and No Lat jt line tenderness Stability: NML: Anterior Drawer, NML: Posterior Drawer, NML: Valgus 0, NML: Valgus 30, NML: Varus 0 and NML: Varus 30 Apprehension with Lateral Translation: No Patella Translation: 1 KNEE: No signs of infection or blood clot Supplemental Info 06/09/2023 left total knee arthroplasty Dr. Nolasco 03/31/2023 MRI left knee [facility] report: Complete radial tear of the medial meniscus extending from the periphery to the intermargin in the posterior horn the medial femoral condyle does demonstrate a large area predominantly high-grade greater than 50% cartilage loss or full- thickness cartilage loss the medial tibial plateau demonstrates moderate size area predominantly high-grade greater than 50% cartilage loss lateral femoral condyle demonstrates partial-thickness cartilage loss and small areas as well as the lateral tibial plateau the patella does demonstrate large areas of predominantly high-grade greater than 50% cartilage loss and fissuring. The trochlea demonstrate small areas of partial-thickness cartilage loss there is small subchondral insufficiency fracture of the medial tibial plateau with surrounding edema moderate joint effusion 01/19/2023 x-ray left knee: Mild spurring noted of the medial compartment with possible early joint space narrowing on the notch view there is more definitive spurring noted of the medial femoral condyle medial tibial plateau and tibial spines, of not (more content not included)... Normal [facility] Orthopedic Visit Reporton Orthopedic Visit Report [facility] [address] [place] [address] OFFICE VISIT Date of Service: 06/22/23 MR#: [id number] Acct: [id number] Name: ALAYNA JARRELL Rep #: [id number] : 1955 Provider: Dr. Cyrus olsen DO Age/Sex: 68/F Location: [facility] Status: Signed Intake Vital Signs 04/06/23 13:05 06/09/23 07:23 Height 5 ft 8 in 5 ft 8 in Intake Visit Reasons: left knee Chief Complaint: 2 week post-op Accompanied by: Self Is patient in pain?: Yes Pain scale (1-10): 7 Allergies cat dander Allergy (Verified 06/22/23 10:13) Eye Swelling, sneezing Sulfa (Sulfonamide Antibiotics) Adverse Reaction (Severe, Verified 06/22/23 10:13) itching Medications pantoprazole 40 mg tablet,delayed release (Protonix) 40 mg PO BID 01/04/14 [History Confirmed 06/22/23] loperamide 2 mg capsule 2 mg PO DAILY 07/12/20 [History Confirmed 06/22/23] cholecalciferol (vitamin D3) 25 mcg (1,000 unit) capsule (Vitamin D3) 25 mcg PO DAILY 04/28/23 [History Confirmed 06/22/23] lisinopril 20 mg tablet 20 mg PO DAILY 04/28/23 [History Confirmed 06/22/23] vilazodone 40 mg tablet 40 mg PO DAILY 04/28/23 [History Confirmed 06/22/23] acetaminophen 500 mg tablet 1,000 mg (2 x 500 mg) PO Q6H PRN #100 tabs 06/09/23 [Rx Confirmed 06/22/23] apixaban 2.5 mg tablet (Eliquis) 2.5 mg PO BID #30 tabs 06/09/23 [Rx Confirmed 06/22/23] cephalexin 500 mg capsule 2,000 mg (4 x 500 mg) PO Q8 #8 caps 06/09/23 [Rx Confirmed 06/22/23] oxycodone 5 mg tablet 5 - 10 mg (1 - 2 x 5 mg) PO Q4H PRN pain 7 days #60 tabs 06/09/23 [Rx Confirmed 06/22/23] PFSH Medical History Acute medial meniscal injury of left knee Alcohol use Anxiety Arthritis Blackout Bladder disease Cancer CPAP (continuous positive airway pressure) dependence Depression Easy bruising Gastric reflux GERD (gastroesophageal reflux disease) GI bleed Hiatal hernia History of edema History of hiatal hernia History of IBS History of steroid therapy History of stress test HTN (hypertension) Injury of head and neck Leg cramps Low iron Non-smoker Post-menopausal Primary osteoarthritis of left knee Restless legs Shortness of breath on exertion Sleep apnea Ulcer Wears contact lenses Wears glasses Wears partial dentures Surgical History History of cholecystectomy Hx of hysterectomy Hx of knee surgery Hx of shoulder surgery Hx of surgical procedure Social History Smoking Status: Never smoker HPI left knee Details: This documentation accurately reflects the service provided and the decisions made by me, Dr. Cyrus Nolasco, DO 06/22/23804. Part of today???s visit was documented by Zainab Oconnor ATC, acting as scribe. ALAYNA JARRELL is a 68 year old F here today for s/p left total knee arthroplasty CT guided Robotic Assisted DOS 06/09/2023. Patient states her knee is pretty painful today. She rates the pain 7/10 but states the pain is better than before surgery. Patient has been taking the pain medication as needed but states there have been days and nights where she didn't take any at all. Patient states she is continuing with physical therapy and it has been going well for her. Ortho Exam General General: Yes no acute distress Neurologic: Yes alert and Yes oriented x3 Psychologic: Yes reasonable and appropriate Left Knee Skin/Wound: Yes CDI, Yes healed, Yes suture/debbi removed, No erythema and Yes swelling Knee ROM: No ROM-Extension -20 to 0 and No ROM-Flexion 0-140 Stability: NML: Valgus 0, NML: Valgus 30, NML: Varus 0 and NML: Varus 30 KNEE: Incision well-approximated debbi removed today no signs of infection or blood clot she is neurovascular intact Supplemental Info 06/09/2023 left total knee arthroplasty Dr. Nolasco 03/31/2023 MRI left knee [facility] report: Complete radial tear of the medial meniscus extending from the periphery to the intermargin in the posterior horn the medial femoral condyle does demonstrate a large area predominantly high-grade greater than 50% cartilage loss or full- thickness cartilage loss the medial tibial plateau demonstrates moderate size area predominantly high-grade greater than 50% cartilage loss lateral femoral condyle demonstrates partial-thickness cartilage loss and small areas as well as the lateral tibial plateau the patella does demonstrate large areas of predominantly high-grade greater than 50% cartilage loss and fissuring. The trochlea demonstrate small areas of partial-thickness cartilage loss there is small subchondral insufficiency fracture of the medial tibial plateau with surrounding edema moderate joint effusion 01/19/2023 x-ray left knee: Mild spurring (more content not included)... Normal [facility] Thin prep Papanicolaou smear with manual screeningOrdered By: Cyrus Nolasco on 06-09-2023 Thin prep Papanicolaou smear with manual screening 94 mg/dL 74-106 [facility] Comment on above: MANAGEMENT OF PATIEN T CARE PER NURSING PROTOCOL Activated partial thrombopla stin time (aPTT) in platelet poor plasma by coagulation aOrdered By: Cyrus Nolasco on 05-01-2023 aPTT Coag (PPP) [Time] 25.0 s 24.1-36.2 [facility] Laboratory - Chemistry and C hemistry - challengeOrdered By: Orion Nicholson on 05-01-2023 Magnesium [Mass/Vol] 2.2 mg/dL 1.6-2.6 [facility] No Panel InformationOrdered By: Cyrus Nolasco on 05-01-2023 Fructosamine 208 umol/L 0-285 [facility] Comment on above: Published reference interval for apparently healthysubjects between age 20 and 60 is 205 - 285 umol/L and in apoorly controlled diabetic population is 228 - 563 umol/Lwith a mean of 396 umol/L.Performed at: [facility] [address] [id number] Director: Kehinde Eduardo PhD, Phone: [phone] Nasal Screen MRSA/MSSA [facility] Whole blood hemoglobin A1c/t otal hemoglobin ratio (mass fraction)Ordered By: Cyrus Nolasco on 05-01-2023 HbA1c (Bld) [Mass fraction] 5.7 % 3.8-5.6 [facility] Comment on above: Normal < 5.7 % Predi abetic 5.7 - 6.4 % Diabetic >or= 6.5 % Please note range changes. Absolute lymphocyte countOrd ered By: Jessie Mayank on 04-23-2023 Lymphocytes Auto (Unsp spec) [#/Vol] 1.74 10*3/uL 0.83-4.51 [facility] Automated lymphocyte count a s percentage of total leukocytesOrdered By: [facility] Mayank on 04-23-2023 Lymphocytes/100 WBC Auto (Unsp spec) 34.9 % 19-41 [facility] Basophil percentageOrdered B y: Jessie Talley on 04-23-2023 Basophils/100 WBC (Bld) 0.8 % 0-1 [facility] Chloride [Moles/Vol] 109 mmol/L 98-107 [facility] Eosinophils/100 WBC (Bld) 1.2 % 0-5 [facility] Glucose [Mass/Vol] 93 mg/dL 74-106 [facility] Hemoglobin (Bld) [Mass/Vol] 12.0 g/dL 12.0-15.0 [facility] Monocytes/100 WBC (Bld) 6.6 % 0-10 [facility] Neutrophils (Bld) [#/Vol] 2.8 10*3/uL 2.0-7.7 [facility] Neutrophils/100 WBC (Bld) 56.3 % 47-70 [facility] Potassium [Moles/Vol] 4.3 mmol/L 3.5-5.1 [facility] Sodium [Moles/Vol] 139 mmol/L 136-145 [facility] WBC (Bld) [#/Vol] 5.0 10*3/uL 4.4-11.0 [facility] Determination of erythrocyte mean corpuscular volume (MCV)Ordered By: Jessie Mayank on 04-23-2023 MCV (RBC) [Entitic vol] 86.2 fL 81-99 [facility] Erythrocyte distribution wid th ratioOrdered By: [facility] 04-23-2023 Erythrocyte distribution width (RBC) [Ratio] 13.8 % 11.6-14.6 [facility] Erythrocyte distribution wid th standard deviationOrdered By: [facility] on 04-23-2023 Erythrocyte distribution width (RBC) [Entitic vol] 43.6 fL 35.1-43.9 [facility] Hematocrit Auto (Bld) [Volum e fraction]Ordered By: Jessie Talley on 04-23-2023 Hematocrit (Bld) [Volume fraction] 37.5 % 37-47 [facility] Immature granulocytes/100 WB C Auto (Bld)Ordered By: Jessie Talley on 04-23-2023 Immature granulocytes/100 WBC (Bld) 0.200 % 0.0-0.9 [facility] Comment on above: IG% - Immature Granu locytes (promyelocytes, myelocytes and metamyelocytes) > 1% indicates that a LEFT SHIFT is Present. Laboratory - Chemistry and C hemistry - challengeOrdered By: Jessie Talley on 04-23-2023 CO2 [Moles/Vol] 27.0 mmol/L 21.0-32.0 [facility] Urea nitrogen/Creatinine [Mass ratio] 14.8 mg/mg 10-20 [facility] Laboratory - CoagulationOrde red By: Jessie Talley on 04-23-2023 INR Coag (Bld) [Relative time] 0.9 {INR} [facility] PT Coag (PPP) [Time] 12.6 s 11.7-14.9 [facility] Laboratory - Hematology and Cell countsOrdered By: Jessie Talley 04-23-2023 MCH (RBC) [Entitic mass] 27.6 pg 27.0-32.0 [facility] MCHC (RBC) [Mass/Vol] 32.0 g/dL 32-36 [facility] Nucleated RBC/100 WBC (Bld) [Ratio] 0 % 0-5 [facility] Platelet mean volume (Bld) [Entitic vol] 10.2 fL 6.2-12.0 [facility] Platelets (Bld) [#/Vol] 274 10*3/uL 150-450 [facility] No Panel InformationOrdered By: Jessie Talley on 04-23-2023 Estimated GFR (MDRD) Amer 83 mL/min >60 [facility] Comment on above: GFR Calc Estimated GFR (MDRD) Non-Af Amer 69 mL/min >60 [facility] Comment on above: Non- GFR Calc RBC Auto (Bld) [#/Vol]Ordere d By: Jessie Talley on 04-23-2023 RBC (Bld) [#/Vol] 4.35 10*6/uL 4.2-5.4 [facility] Serum or plasma calcium derian urement (mass/volume)Ordered By: Jessie Talley on 04-23-2023 Calcium [Mass/Vol] 9.1 mg/dL 8.5-10.1 [facility] Serum or plasma creatinine m easurement (mass/volume)Ordered By: Jessie Talley on 04-23-2023 Creatinine [Mass/Vol] 0.88 mg/dL 0.55-1.02 [facility] Comment on above: The validity of the calculated GFR & GFRAA in patients over 70 years has not been determined. Clinical correlation is essential. Serum or plasma urea nitroge n measurement (mass/volume)Ordered By: Jessie Talley on 04-23-2023 Urea nitrogen [Mass/Vol] 13 mg/dL 7-18 [facility] Thin prep Papanicolaou smear with manual screeningOrdered By: Jessie Talley on 04-23-2023 Thin prep Papanicolaou smear with manual screening 3 - [facility] MRI KNEE WO IVCON LTon 03-31 MRI KNEE WO IVCON LT * * *Final Report* * * DATE OF EXAM: Mar 31 2023 3:26PM [facility] 0212 - MRI KNEE WO IVCON LT / PROCEDURE REASON: lt knee * * * * Physician Interpretation * * * * EXAMINATION: MRI LEFT KNEE WITHOUT CONTRAST CLINICAL HISTORY: Acute pain left knee TECHNIQUE: Routine non-contrast MRI of the knee MQ: [id number] COMPARISON: 09/15/2018 left knee x-rays RESULT: MENISCI: Medial Meniscus: Complete radial tear extending from the periphery to the inner margin in the posterior horn with associated mild extrusion of the body of the meniscus Lateral Meniscus: Degenerative changes without a tear LIGAMENTS: ACL: Intact PCL: Intact MCL: Intact LCL Complex: Intact CARTILAGE: Medial Femoral Condyle: Large area(s) of predominantly high grade (greater than 50% thickness) cartilage loss and or fissuring with smaller area(s) of full thickness cartilage loss and or fissuring Medial Tibial Plateau: Moderate sized area(s) of predominantly high grade (greater than 50% thickness) cartilage loss and or fissuring with smaller area(s) of full thickness cartilage loss and or fissuring Lateral Femoral Condyle: Small area(s) of low grade (less than 50% thickness) partial thickness cartilage loss and or fissuring Lateral Tibial Plateau: Small area(s) of high grade (greater than 50% thickness) partial thickness cartilage loss and or fissuring Patella: Large area(s) of predominantly high grade (greater than 50% thickness) cartilage loss and or fissuring with smaller area(s) of full thickness cartilage loss and or fissuring Trochlea: Small area(s) of low grade (less than 50% thickness) partial thickness cartilage loss and or fissuring TENDONS: The distal quadriceps and patellar tendons are intact. The popliteus tendon is intact. BONES AND MARROW: Small subchondral insufficiency fracture medial tibial plateau with mild surrounding edema. MUSCLES: Muscle bulk and signal intensity are normal. JOINT FLUID AND SYNOVIUM: Moderate joint effusion. No synovitis. No Andersen's cyst. OTHER: Mild edema within the soft tissues anterior to the patella and patellar tendon. Localizer images: Unremarkable. IMPRESSION: LARGE RADIAL TEAR MEDIAL MENISCUS AND SMALL SUBCHONDRAL INSUFFICIENCY FRACTURE MEDIAL TIBIAL PLATEAU TRICOMPARTMENTAL OSTEOARTHRITIS, SEVERE IN THE MEDIAL AND PATELLOFEMORAL COMPARTMENTS Public Health Informatician: CHRIS Transcribe Date/Time: Mar 31 2023 3:39P Dictated by : JONATHAN GUO MD This examination was interpreted and the report reviewed and electronically signed by: JONATHAN GUO MD on Mar 31 2023 3:43PM EST [id number] Normal [facility] Absolute lymphocyte countOrd ered By: Jessie Talley on 02-11-2023 Lymphocytes Auto (Unsp spec) [#/Vol] 1.87 10*3/uL 0.83-4.51 [facility] Basophil percentageOrdered B y: Jessie Talley on 02-11-2023 Basophils/100 WBC (Bld) 0.8 % 0-1 [facility] Bilirubin [Mass/Vol] 0.30 mg/dL 0.20-1.00 [facility] Comment on above: For patients on eltr ombopag therapy, use of Dimension [place] TBIL is not recommended. Chloride [Moles/Vol] 111 mmol/L 98-107 [facility] Eosinophils/100 WBC (Bld) 0.7 % 0-5 [facility] Glucose [Mass/Vol] 104 mg/dL 74-106 [facility] Comment on above: Fasting Glucose resu lt from 100 to 125 mg/dL suggests IMPAIRED HOMEOSTASIS per A.D.A. criteria. Neutrophils (Bld) [#/Vol] 3.8 10*3/uL 2.0-7.7 [facility] Neutrophils/100 WBC (Bld) 61.9 % 47-70 [facility] Potassium [Moles/Vol] 4.5 mmol/L 3.5-5.1 [facility] Protein [Mass/Vol] 7.3 g/dL 6.4-8.2 [facility] Sodium [Moles/Vol] 144 mmol/L 136-145 [facility] WBC (Bld) [#/Vol] 6.1 10*3/uL 4.4-11.0 [facility] Blood erythrocytes count (nu mber/volume)Ordered By: Jessie Talley on 02-11-2023 RBC (Bld) [#/Vol] 4.37 10*6/uL 4.2-5.4 [facility] Blood hemoglobin measurement (mass/volume)Ordered By: Jessie Talley on 02-11-2023 Hemoglobin (Bld) [Mass/Vol] 12.2 g/dL 12.0-15.0 [facility] Blood lymphocytes/100 leukoc ytesOrdered By: Jessie Talley on 02-11-2023 Lymphocytes/100 WBC (Bld) 30.7 % 19-41 [facility] Blood monocytes/100 leukocyt esOrdered By: Jessie Talley on 02-11-2023 Monocytes/100 WBC (Bld) 5.7 % 0-10 [facility] Blood platelet mean volumeOr dered By: Jessie Talley on 02-11-2023 Platelet mean volume (Bld) [Entitic vol] 9.9 fL 6.2-12.0 [facility] Determination of erythrocyte mean corpuscular volume (MCV)Ordered By: Jessie Talley on 02-11-2023 MCV (RBC) [Entitic vol] 90.4 fL 81-99 [facility] Hematocrit Auto (Bld) [Volum e fraction]Ordered By: Jessie Talley on 02-11-2023 Hematocrit (Bld) [Volume fraction] 39.5 % 37-47 [facility] Laboratory - Chemistry and C hemistry - challengeOrdered By: Jessie Talley on 02-11-2023 ALP [Catalytic activity/Vol] 100 U/L 45-117 [facility] ALT [Catalytic activity/Vol] 19 U/L 13-56 [facility] CO2 [Moles/Vol] 27.0 mmol/L 21.0-32.0 [facility] Globulin (S) [Mass/Vol] 3.9 g/dL 2.2-4.2 [facility] Urea nitrogen/Creatinine [Mass ratio] 25.4 mg/mg 10-20 [facility] Laboratory - Hematology and Cell countsOrdered By: Jessie Talley on 02-11-2023 Erythrocyte distribution width (RBC) [Entitic vol] 51.7 fL 35.1-43.9 [facility] Erythrocyte distribution width (RBC) [Ratio] 15.6 % 11.6-14.6 [facility] Immature granulocytes/100 WBC (Bld) 0.200 % 0.0-0.9 [facility] Comment on above: IG% - Immature Granu locytes (promyelocytes, myelocytes and metamyelocytes) > 1% indicates that a LEFT SHIFT is Present. MCH (RBC) [Entitic mass] 27.9 pg 27.0-32.0 [facility] Nucleated RBC/100 WBC (Bld) [Ratio] 0 % 0-5 [facility] MCHC Auto (RBC) [Mass/Vol]Or dered By: Jessie Talley on 02-11-2023 MCHC (RBC) [Mass/Vol] 30.9 g/dL 32-36 [facility] No Panel InformationOrdered By: Jessie Talley on 02-11-2023 Estimated GFR (MDRD) Amer 76 mL/min >60 [facility] Comment on above: GFR Calc Estimated GFR (MDRD) Non-Af Amer 63 mL/min >60 [facility] Comment on above: Non- GFR Calc Thyroid Stimulating Hormone (TSH) 1.11 uIU/mL 0.358-3.74 [facility] Vitamin D 25-Hydroxy 26.7 ng/mL [facility] Comment on above: Vitamin D 25(OH) Sta tus Range Deficiency <20 ng/mL (50nmol/L) Insufficiency 20 - 30 ng/mL (50 - 75 nmol/L) Sufficiency 30 - 100 ng/mL (75 - 250 nmol/L) Toxicity >100 ng/mL (>250 nmol/L) Platelets bldOrdered By: Jessie Talley on 02-11-2023 Platelets (Bld) [#/Vol] 258 10*3/uL 150-450 [facility] Serum or plasma albumin derian urement (mass/volume)Ordered By: Jessie Talley on 02-11-2023 Albumin [Mass/Vol] 3.4 g/dL 3.2-5.0 [facility] Serum or plasma albumin/glob ulin mass ratioOrdered By: Jessie Talley on 02-11-2023 Albumin/Globulin [Mass ratio] 0.9 {ratio} 0.9-2.4 [facility] Serum or plasma calcium derian urement (mass/volume)Ordered By: Jessie Talley on 02-11-2023 Calcium [Mass/Vol] 9.1 mg/dL 8.5-10.1 [facility] Serum or plasma creatinine m easurement (mass/volume)Ordered By: Jessie Talley on 02-11-2023 Creatinine [Mass/Vol] 0.95 mg/dL 0.55-1.02 [facility] Comment on above: The validity of the calculated GFR & GFRAA in patients over 70 years has not been determined. Clinical correlation is essential. Serum or plasma urea nitroge n measurement (mass/volume)Ordered By: Jessie Talley on 02-11-2023 Urea nitrogen [Mass/Vol] 24 mg/dL 7-18 [facility] Thin prep Papanicolaou smear with manual screeningOrdered By: Jessie Talley on 02-11-2023 Thin prep Papanicolaou smear with manual screening 9 U/L 15-37 [facility] Thin prep Papanicolaou smear with manual screening 6 5-15 [facility] Culture, urineOrdered By: Dr Sarah Talley on 07-09-2022 Bacteria identified Cx Nom (U) Positive [facility] Basophil percentageon 2021 Chloride [Moles/Vol] 109 mmol/L 98-107 [facility] Work Phone: Glucose [Mass/Vol] 86 mg/dL 74-106 [facility] Work Phone: Potassium [Moles/Vol] 4.0 mmol/L 3.5-5.1 [facility] Work Phone: Sodium [Moles/Vol] 142 mmol/L 136-145 [facility] Work Phone: WBC (Bld) [#/Vol] 7.7 10*3/uL 4.4-11.0 [facility] Work Phone: Blood erythrocytes count (nu mber/volume)on 12-26-2021 RBC (Bld) [#/Vol] 4.90 10*6/uL 4.2-5.4 [facility] Work Phone: Blood hemoglobin measurement (mass/volume)on 12-26-2021 Hemoglobin (Bld) [Mass/Vol] 13.9 g/dL 12.0-15.0 [facility] Work Phone: Blood platelet mean volumeon 12-26-2021 Platelet mean volume (Bld) [Entitic vol] 10.4 fL 6.2-12.0 [facility] Work Phone: Determination of erythrocyte mean corpuscular volume (MCV)on 12-26-2021 MCV (RBC) [Entitic vol] 89.4 fL 81-99 [facility] Work Phone: Hematocrit Auto (Bld) [Volum e fraction]on 12-26-2021 Hematocrit (Bld) [Volume fraction] 43.8 % 37-47 [facility] Work Phone: Laboratory - Chemistry and C hemistry - challengeon 12-26-2021 CO2 [Moles/Vol] 25.0 mmol/L 21.0-32.0 [facility] Work Phone: Urea nitrogen/Creatinine [Mass ratio] 20.0 mg/mg 10-20 [facility] Work Phone: Laboratory - Hematology and Cell countson 12-26-2021 Erythrocyte distribution width (RBC) [Entitic vol] 44.2 fL 35.1-43.9 [facility] Work Phone: Erythrocyte distribution width (RBC) [Ratio] 13.6 % 11.6-14.6 [facility] Work Phone: MCH (RBC) [Entitic mass] 28.4 pg 27.0-32.0 [facility] Work Phone: MCHC Auto (RBC) [Mass/Vol]on 12-26-2021 MCHC (RBC) [Mass/Vol] 31.7 g/dL 32-36 [facility] Work Phone: No Panel Informationon 12-26 Estimated GFR (MDRD) Amer 72 mL/min >60 [facility] Work Phone: Comment on above: GFR Calc Estimated GFR (MDRD) Non-Af Amer 59 mL/min >60 [facility] Work Phone: Comment on above: Non- GFR Calc Platelets bldon 12-26-2021 Platelets (Bld) [#/Vol] 271 10*3/uL 150-450 [facility] Work Phone: Serum or plasma calcium derian urement (mass/volume)on 12-26-2021 Calcium [Mass/Vol] 9.4 mg/dL 8.5-10.1 [facility] Work Phone: Serum or plasma creatinine m easurement (mass/volume)on 12-26-2021 Creatinine [Mass/Vol] 1.00 mg/dL 0.55-1.02 [facility] Work Phone: Comment on above: The validity of the calculated GFR & GFRAA in patients over 70 years has not been determined. Clinical correlation is essential. Serum or plasma urea nitroge n measurement (mass/volume)on 12-26-2021 Urea nitrogen [Mass/Vol] 20 mg/dL 7-18 [facility] Work Phone: Thin prep Papanicolaou smear with manual screeningon 12-26-2021 Thin prep Papanicolaou smear with manual screening 8 5-15 [facility] Work Phone: Absolute lymphocyte counton 11-20-2021 Lymphocytes Auto (Unsp spec) [#/Vol] 1.89 10*3/uL 0.83-4.51 [facility] Work Phone: [phone] Basophil percentageon 2021 Basophils/100 WBC (Bld) 0.8 % 0-1 [facility] Work Phone: [phone] Bilirubin [Mass/Vol] 0.30 mg/dL 0.20-1.00 [facility] Work Phone: [phone] Comment on above: For patients on eltr ombopag therapy, use of Dimension [place] TBIL is not recommended. Chloride [Moles/Vol] 112 mmol/L 98-107 [facility] Work Phone: Eosinophils/100 WBC (Bld) 1.7 % 0-5 [facility] Work Phone: Glucose [Mass/Vol] 163 mg/dL 74-106 [facility] Work Phone: Comment on above: Fasting Glucose resu lt greater than or equal to 126 mg/dL suggests DIABETES MELLITUS per A.D.A. criteria. Neutrophils (Bld) [#/Vol] 3.6 10*3/uL 2.0-7.7 [facility] Work Phone: Neutrophils/100 WBC (Bld) 60.8 % 47-70 [facility] Work Phone: [phone] Potassium [Moles/Vol] 3.5 mmol/L 3.5-5.1 [facility] Work Phone: [phone] Protein [Mass/Vol] 7.3 g/dL 6.4-8.2 [facility] Work Phone: [phone] Sodium [Moles/Vol] 144 mmol/L 136-145 [facility] Work Phone: [phone] WBC (Bld) [#/Vol] 5.9 10*3/uL 4.4-11.0 [facility] Work Phone: Blood erythrocytes count (nu mber/volume)on 11-20-2021 RBC (Bld) [#/Vol] 4.61 10*6/uL 4.2-5.4 [facility] Work Phone: Blood hemoglobin measurement (mass/volume)on 11-20-2021 Hemoglobin (Bld) [Mass/Vol] 13.3 g/dL 12.0-15.0 [facility] Work Phone: Blood lymphocytes/100 leukoc yteson 11-20-2021 Lymphocytes/100 WBC (Bld) 31.9 % 19-41 [facility] Work Phone: Blood monocytes/100 leukocyt eson 11-20-2021 Monocytes/100 WBC (Bld) 4.6 % 0-10 [facility] Work Phone: Blood platelet mean volumeon 11-20-2021 Platelet mean volume (Bld) [Entitic vol] 10.0 fL 6.2-12.0 [facility] Work Phone: Determination of erythrocyte mean corpuscular volume (MCV)on 11-20-2021 MCV (RBC) [Entitic vol] 90.5 fL 81-99 [facility] Work Phone: Hematocrit Auto (Bld) [Volum e fraction]on 11-20-2021 Hematocrit (Bld) [Volume fraction] 41.7 % 37-47 [facility] Work Phone: Laboratory - Chemistry and C hemistry - challengeon 11-20-2021 ALP [Catalytic activity/Vol] 101 U/L 45-117 [facility] Work Phone: ALT [Catalytic activity/Vol] 18 U/L 13-56 [facility] Work Phone: CO2 [Moles/Vol] 25.0 mmol/L 21.0-32.0 [facility] Work Phone: Globulin (S) [Mass/Vol] 4.1 g/dL 2.2-4.2 [facility] Work Phone: Urea nitrogen/Creatinine [Mass ratio] 18.3 mg/mg 10-20 [facility] Work Phone: Laboratory - Hematology and Cell countson 11-20-2021 Erythrocyte distribution width (RBC) [Entitic vol] 45.3 fL 35.1-43.9 [facility] Work Phone: Erythrocyte distribution width (RBC) [Ratio] 13.6 % 11.6-14.6 [facility] Work Phone: Immature granulocytes/100 WBC (Bld) 0.200 % 0.0-0.9 [facility] Work Phone: Comment on above: IG% - Immature Granu locytes (promyelocytes, myelocytes and metamyelocytes) > 1% indicates that a LEFT SHIFT is Present. MCH (RBC) [Entitic mass] 28.9 pg 27.0-32.0 [facility] Work Phone: Nucleated RBC/100 WBC (Bld) [Ratio] 0 % 0-5 [facility] Work Phone: MCHC Auto (RBC) [Mass/Vol]on 11-20-2021 MCHC (RBC) [Mass/Vol] 31.9 g/dL 32-36 [facility] Work Phone: No Panel Informationon 11-20 Estimated GFR (MDRD) Amer 69 mL/min >60 [facility] Work Phone: Comment on above: GFR Calc Estimated GFR (MDRD) Non-Af Amer 57 mL/min >60 [facility] Work Phone: Comment on above: Non- GFR Calc Thyroid Stimulating Hormone (TSH) 2.07 uIU/mL 0.358-3.74 [facility] Work Phone: Platelets bldon 11-20-2021 Platelets (Bld) [#/Vol] 251 10*3/uL 150-450 [facility] Work Phone: Serum or plasma albumin derian urement (mass/volume)on 11-20-2021 Albumin [Mass/Vol] 3.2 g/dL 3.2-5.0 [facility] Work Phone: Serum or plasma albumin/glob ulin mass ratioon 11-20-2021 Albumin/Globulin [Mass ratio] 0.8 {ratio} 0.9-2.4 [facility] Work Phone: Serum or plasma calcium derian urement (mass/volume)on 11-20-2021 Calcium [Mass/Vol] 9.4 mg/dL 8.5-10.1 [facility] Work Phone: Serum or plasma creatinine m easurement (mass/volume)on 11-20-2021 Creatinine [Mass/Vol] 1.04 mg/dL 0.55-1.02 [facility] Work Phone: Comment on above: The validity of the calculated GFR & GFRAA in patients over 70 years has not been determined. Clinical correlation is essential. Serum or plasma urea nitroge n measurement (mass/volume)on 11-20-2021 Urea nitrogen [Mass/Vol] 19 mg/dL 7-18 [facility] Work Phone: Thin prep Papanicolaou smear with manual screeningon 11-20-2021 Thin prep Papanicolaou smear with manual screening 15 U/L 15-37 [facility] Work Phone: Thin prep Papanicolaou smear with manual screening 7 5-15 [facility] Work Phone: Absolute lymphocyte counton 08-22-2021 Lymphocytes Auto (Unsp spec) [#/Vol] 2.09 10*3/uL 0.83-4.51 [facility] Work Phone: Basophil percentageon 2021 Basophils/100 WBC (Bld) 0.6 % 0-1 [facility] Work Phone: Bilirubin [Mass/Vol] 0.40 mg/dL 0.20-1.00 [facility] Work Phone: [phone] Comment on above: For patients on eltr ombopag therapy, use of Dimension [place] TBIL is not recommended. Chloride [Moles/Vol] 107 mmol/L 98-107 [facility] Work Phone: [phone] Eosinophils/100 WBC (Bld) 1.3 % 0-5 [facility] Work Phone: [phone] Glucose [Mass/Vol] 93 mg/dL 74-106 [facility] Work Phone: [phone] Neutrophils (Bld) [#/Vol] 2.8 10*3/uL 2.0-7.7 [facility] Work Phone: [phone] Neutrophils/100 WBC (Bld) 51.9 % 47-70 [facility] Work Phone: [phone] Potassium [Moles/Vol] 4.0 mmol/L 3.5-5.1 [facility] Work Phone: [phone] Protein [Mass/Vol] 7.6 g/dL 6.4-8.2 [facility] Work Phone: [phone] Sodium [Moles/Vol] 140 mmol/L 136-145 [facility] Work Phone: [phone] WBC (Bld) [#/Vol] 5.4 10*3/uL 4.4-11.0 [facility] Work Phone: Blood erythrocytes count (nu mber/volume)on 08-22-2021 RBC (Bld) [#/Vol] 4.55 10*6/uL 4.2-5.4 [facility] Work Phone: Blood hemoglobin measurement (mass/volume)on 08-22-2021 Hemoglobin (Bld) [Mass/Vol] 13.8 g/dL 12.0-15.0 [facility] Work Phone: Blood lymphocytes/100 leukoc yteson 08-22-2021 Lymphocytes/100 WBC (Bld) 38.6 % 19-41 [facility] Work Phone: Blood monocytes/100 leukocyt eson 08-22-2021 Monocytes/100 WBC (Bld) 7.4 % 0-10 [facility] Work Phone: Blood platelet mean volumeon 08-22-2021 Platelet mean volume (Bld) [Entitic vol] 10.4 fL 6.2-12.0 [facility] Work Phone: Determination of erythrocyte mean corpuscular volume (MCV)on 08-22-2021 MCV (RBC) [Entitic vol] 93.2 fL 81-99 [facility] Work Phone: Hematocrit Auto (Bld) [Volum e fraction]on 08-22-2021 Hematocrit (Bld) [Volume fraction] 42.4 % 37-47 [facility] Work Phone: Laboratory - Chemistry and C hemistry - challengeon 08-22-2021 ALP [Catalytic activity/Vol] 92 U/L 45-117 [facility] Work Phone: ALT [Catalytic activity/Vol] 22 U/L 13-56 [facility] Work Phone: CO2 [Moles/Vol] 28.0 mmol/L 21.0-32.0 [facility] Work Phone: Globulin (S) [Mass/Vol] 4.3 g/dL 2.2-4.2 [facility] Work Phone: Urea nitrogen/Creatinine [Mass ratio] 16.0 mg/mg 10-20 [facility] Work Phone: Laboratory - Hematology and Cell countson 08-22-2021 Erythrocyte distribution width (RBC) [Entitic vol] 43.4 fL 35.1-43.9 [facility] Work Phone: Erythrocyte distribution width (RBC) [Ratio] 12.6 % 11.6-14.6 [facility] Work Phone: Immature granulocytes/100 WBC (Bld) 0.200 % 0.0-0.9 [facility] Work Phone: Comment on above: IG% - Immature Granu locytes (promyelocytes, myelocytes and metamyelocytes) > 1% indicates that a LEFT SHIFT is Present. MCH (RBC) [Entitic mass] 30.3 pg 27.0-32.0 [facility] Work Phone: Nucleated RBC/100 WBC (Bld) [Ratio] 0 % 0-5 [facility] Work Phone: MCHC Auto (RBC) [Mass/Vol]on 08-22-2021 MCHC (RBC) [Mass/Vol] 32.5 g/dL 32-36 [facility] Work Phone: No Panel Informationon 08-22 Estimated GFR (MDRD) Amer 72 mL/min >60 [facility] Work Phone: Comment on above: GFR Calc Estimated GFR (MDRD) Non-Af Amer 59 mL/min >60 [facility] Work Phone: Comment on above: Non- GFR Calc Thyroid Stimulating Hormone (TSH) 2.95 uIU/mL 0.358-3.74 [facility] Work Phone: Vitamin D 25-Hydroxy 13.2 ng/mL [facility] Work Phone: Comment on above: Vitamin D 25(OH) Sta tus Range Deficiency <20 ng/mL (50nmol/L) Insufficiency 20 - 30 ng/mL (50 - 75 nmol/L) Sufficiency 30 - 100 ng/mL (75 - 250 nmol/L) Toxicity >100 ng/mL (>250 nmol/L) Platelets bldon 08-22-2021 Platelets (Bld) [#/Vol] 230 10*3/uL 150-450 [facility] Work Phone: Serum or plasma albumin derian urement (mass/volume)on 08-22-2021 Albumin [Mass/Vol] 3.3 g/dL 3.2-5.0 [facility] Work Phone: Serum or plasma albumin/glob ulin mass ratioon 08-22-2021 Albumin/Globulin [Mass ratio] 0.8 {ratio} 0.9-2.4 [facility] Work Phone: Serum or plasma calcium derian urement (mass/volume)on 08-22-2021 Calcium [Mass/Vol] 9.6 mg/dL 8.5-10.1 [facility] Work Phone: Serum or plasma creatinine m easurement (mass/volume)on 08-22-2021 Creatinine [Mass/Vol] 1.00 mg/dL 0.55-1.02 [facility] Work Phone: Comment on above: The validity of the calculated GFR & GFRAA in patients over 70 years has not been determined. Clinical correlation is essential. Serum or plasma urea nitroge n measurement (mass/volume)on 08-22-2021 Urea nitrogen [Mass/Vol] 16 mg/dL 7-18 [facility] Work Phone: Thin prep Papanicolaou smear with manual screeningon 08-22-2021 Thin prep Papanicolaou smear with manual screening 13 U/L 15-37 [facility] Work Phone: Thin prep Papanicolaou smear with manual screening 5 5-15 [facility] Work Phone: Vital Signs Date Time Vital Sign Value Performing Clinician Faci sheila 06-09-2023 15:00-0400 Body temperature 97 [degF] Dr. Jessie Talley Work Phone: [facility] 06-09-2023 15:00-0400 Diastolic blood pressure 78 mm[Hg] Dr. Jessie Talley Work Phone: [facility] 06-09-2023 15:00-0400 Heart rate 85 /min Dr. Jessie Talley Work Phone: [facility] 06-09-2023 15:00-0400 Respiratory rate 16 /min Dr. Jessie Talley Work Phone: [facility] 06-09-2023 15:00-0400 SaO2% (BldA) [Mass fraction] 97 % Dr. Jessie Talley Work Phone: [facility] 06-09-2023 15:00-0400 Systolic blood pressure 106 mm[Hg] Dr. Jessie Talley Work Phone: [facility] 06-09-2023 12:00-0400 Inhaled oxygen flow rate 4 L/min Dr. Jessie Talley Work Phone: [facility] 06-09-2023 07:23-0400 Body height 172.[address] Jessie Talley Work Phone: [phone] [place] [address] 06-09-2023 07:23-0400 Body mass index (BMI) [Ratio] 38.5 kg/m2 Dr. Jessie Talley Work Phone: [facility] 06-09-2023 07:23-0400 Body weight [address] Jessie Talley Work Phone: [facility] 04-06-2023 13:05-0500 Body height 172.[address] Jessie Talley Work Phone: [phone] [place] [address] 04-06-2023 13:05-0500 Body mass index (BMI) [Ratio] 38.3 kg/m2 Dr. Jessie Talley Work Phone: [facility] 04-06-2023 13:05-0500 Body weight 114.[address] Jessie Talley Work Phone: [facility] 02-02-2023 14:35-0500 Body height 172.[address] Jessie Talley Work Phone: [facility] 12-30-2021 13:50-0400 Diastolic blood pressure 107 mm[Hg] [facility] Work Phone: 12-30-2021 13:50-0400 Heart rate 84 /min [facility] Work Phone: 12-30-2021 13:50-0400 Respiratory rate 16 /min [facility] Work Phone: 12-30-2021 13:50-0400 SaO2% (BldA) [Mass fraction] 92 % [facility] Work Phone: 12-30-2021 13:50-0400 Systolic blood pressure 153 mm[Hg] [facility] Work Phone: 12-30-2021 13:17-0400 Body temperature 97.8 [degF] [facility] Work Phone: 12-30-2021 10:47-0400 Body height 172.72 cm [facility] Work Phone: 12-30-2021 10:47-0400 Body mass index (BMI) [Ratio] 38.1 kg/m2 [facility] Work Phone: 12-30-2021 10:47-0400 Body weight 113.7 kg [facility] Work Phone: Encounters Encounter Date Encounter Type Care Provider Facility Start: 06-08-2024 End: 06-08-2024 ambulatory Jessie Chi Mayank Facility:[facility] Start: 02-22-2024 End: 02-22-2024 ambulatory Jessie Chi Mayank Facility:[facility] Start: 12-16-2023 End: 12-16-2023 ambulatory Jessie Chi Mayank Facility:[facility] Start: 09-04-2023 End: [facility] Start: 08-24-2023 End: 08-24-2023 ambulatory Jessie Chi Mayank Facility:[facility] Start: 07-20-2023 End: [facility] Start: 06-22-2023 End: 06-22-2023 [facility] Start: 06-15-[address] SABINO TALLEY MD Faci lity:B Start: 06-15-2023 End: 12-15-[address] SABINO TALLEY MD Facility:[facility] Start: 06-09-2023 Non-patient / Non-visit Dr. Cristopher Talley Work Phone: [facility] Start: 06-09-2023 End: 06-09-2023 Admission to same day surgery center Dr. Jessie Talley Work Phone: [facility] Start: 06-09-2023 End: 06-09-[address] Jessie Talley Work Phone: [facility] Work Phone: Start: 05-07-2023 End: 05-07-[address] Jessie Talley Work Phone: [facility] Work Phone: Start: 04-27-2023 End: 04-27-[address] Jessie Talley Work Phone: [facility] Work Phone: Start: 04-23-2023 End: 04-23-[address] Jessie Talley Work Phone: [facility] Work Phone: Start: 04-23-2023 End: 04-23-[address] Jessie Talley Work Phone: [facility], [employer] 3rd Flr Start: 04-06-2023 End: 04-06-[address] Jessie Talley Work Phone: [facility] Work Phone: Start: 03-31-2023 End: 03-31-2023 ambulatory JESSIE TALLEY Facility:[facility] Start: 02-11-2023 End: 02-11-[address] Jessie Talley Work Phone: [facility] Work Phone: Start: 02-11-2023 End: 02-11-[address] Jessie Talley Work Phone: [facility] [facility] Start: 02-09-2023 End: 02-09-[address] Jessie Talley Work Phone: [facility] Work Phone: Start: 01-19-2023 End: 01-19-2023 ambulatory [facility] Work Phone: Start: 01-19-2023 End: 01-19-2023 Patient encounter procedure [facility], [facility] Work Phone: Start: 07-07-2022 End: 07-07-2022 ambulatory [facility] Work Phone: Start: 07-07-2022 End: 07-07-2022 [facility] Start: 12-30-2021 End: 12-30-2021 Admission to same day surgery center [facility] Start: 12-30-2021 End: 12-30-2021 ambulatory [facility] Work Phone: Start: 11-26-2021 End: 11-26-2021 ambulatory [facility] Work Phone: Start: 11-26-2021 End: 11-26-2021 [facility] Start: 11-20-2021 End: 11-20-2021 ambulatory [facility] Work Phone: Start: 11-20-2021 End: 11-20-2021 [facility] Start: 09-18-2021 ambulatory Jamarcus estrella MD Work Phone: [facility] [place] Start: 08-22-2021 End: 08-22-2021 [facility] Start: 01-20-2019 Patient encounter status Jamarcus García MD Work Phone: [facility] Work Phone: Procedures Date Procedure Procedure Detail Performing Clinician Start: 06-09-2023 Total Knee Replaceme nt Robotic Arm Clayton (Left) Dr. Jessie Talley Work Phone: Start: 05-07-2023 MRI of lower extremity Dr. Jessie Talley Work Phone: Start: 05-01-2023 Nasal Screen MRSA/MSSA Dr. Jessie Talley Work Phone: Start: 01-19-2023 Radiologic examinati on of knee Start: 12-30-2021 Excision Start: 06-05-2014 Colonoscopy Jamarcus llamas MD Work Phone: Urine culture Plan of Treatment Date Care Activity Detail Author Start: 01-20-2029 Urine microalbumin profile DTAP,TDAP,TD (2 - Td or Tdap) [facility] Start: 01-21-2024 LIPID SCREEN LIPID SCREEN [facility] Start: 06-09-2023 Application of ice collar, cap or bag [facility] Start: 06-09-2023 Exercises [facility] Start: 06-09-2023 Incentive spirometry [facility] Start: 06-09-2023 Neurovascular assessment [facility] Start: 06-09-2023 Patient discharge [facility] Start: 06-09-2023 Patient education [facility] Start: 06-09-2023 Provision of activit y privileges [facility] Start: 06-09-2023 Radiologic examinati on of knee Knee 1 or 2 Views [facility] Start: 06-09-2023 Referral to service [facility] Start: 06-09-2023 Vital signs measurements [facility] Start: 06-09-2023 Wound care [facility] Start: 06-09-2023 XR Knee 1 or 2 Views [facility] Start: 06-09-2023 [facility] Start: 06-09-2023 Recommendation to continue with treatment [facility] Start: 01-20-2022 DIABETES SCREEN DIABETES SCREEN [facility] Start: 12-30-2021 Ambulation without limitation [facility] Work Phone: Start: 12-30-2021 Elevation of head of bed [facility] Work Phone: Start: 12-30-2021 Medical regimen orde rs management [facility] Work Phone: Start: 12-30-2021 [facility] Start: 12-30-2021 Procedure discontinued [facility] Work Phone: Start: 12-30-2021 Taking patient vital signs [facility] Work Phone: Start: 12-30-2021 Vital signs measurements [facility] Work Phone: Start: 12-30-2021 Medication education [facility] Work Phone: Start: 11-14-2021 Influenza vaccination INFLUENZA (#1) [facility] Start: 06-05-2021 Colonoscopy COLONOSCOPY [facility] Start: 06-05-2021 COLORECTAL CANCER SCREENING COLORECTAL CANCER SCREENING [facility] Start: 10-02-2020 ANNUAL PCP TEAM INTERFACE ANALYST TARA DISEASE VISIT ANNUAL PCP TEAM CHRONIC DISEASE VISIT [facility] Start: 11-28-2019 SHINGRIX VACCINE (2 of 2) SHINGRIX VACCINE (2 of 2) [facility] Start: 2002 COLOGUARD (FIT-DNA) COLOGUARD (FIT-D NA) [facility] Start: [address] COLONOGRAPHY [facility] Start: 2002 FECAL OCCULT BLOOD FECAL OCCULT BLOO D [facility] Start: 2002 SIGMOIDOSCOPY SIGMOIDOSCOPY [facility] Start: 1997 Mammography MAMMOGRAM [facility] Start: 1987 HPV TESTING HPV TESTING [facility] Start: 1978 PAP TESTING PAP TESTING [facility] Start: 1975 BP CONTROLLED (<130/80) BP CONTROLLE D (<130/80) [facility] Start: 1957 COVID-19 VACCINE (#1) COVID-19 VACCI NE (#1) [facility] Patient referral [facility] Work Phone: End: 10-18-2022 Screening mammography bi 2-view breast inc cad TRACIE SCREENING Radiology Routine Encounter for screening mammogram for breast cancer 1 Occurrences starting 09/18/2021 until 10/18/2022 [facility] Work Phone: Comment on above: 1 Occurrences starti ng 09/18/2021 until 10/18/2022 Immunizations Immunization Date Immunization Notes Care Provider Wesly sarmiento 10-03-2019 zoster vaccine recombinant Jamarcus García MD Work Phone: [facility] 01-20-2019 influenza, injectabl e, quadrivalent, contains preservative Jamarcus García MD Work Phone: [facility] 01-20-2019 tetanus toxoid, redu mónica diphtheria toxoid, and acellular pertussis vaccine, adsorbed Jamarcus García MD Work Phone: [facility] Payers Date Payer Category Payer Self-pay [id number] 2023 Medicare [id number] 2020 Private Health Insurance [id number] 2020 Private Health Insurance ROB AVENDANO OAP [id number] 2020-Present [phone] [facility] [id number] [place] [address] Open Access [id number] 1955 Unknown [id number] Unknown [id number] Unknown [id number] Unknown [id number] Unknown [id number] Unknown [id number] Unknown [id number] Unknown [id number] Unknown [id number] Unknown [id number] Unknown [id number] Social History Date Type Detail Facility Start: 10-10-2020 End: 04-28-2023 Tobacco smoking status NDIS Unknown if ever smoked [facility] Start: 07-12-2020 Non-smoker [facility] Start: 1955 Sex Assigned At Female [facility] Work Phone: Start: 04-02-2017 Tobacco smoking stat [facility] Never smoked tobacco [facility] Work Phone: Start: 04-02-2017 Tobacco use and exposure Smokeless tobacco non-user [facility] Work Phone: Start: 10-03-2019 Alcohol intake Current drinke r of alcohol (finding) [facility] Start: 09-03-2018 History SDOH Alcohol Comment socially [facility] Medical Equipment Procedure Code Equipment Code Equipment Origin al Text Equipment Identifier Dates Arthroscopy, shoulder, with rotator cuff repair FIBERTAPE [id number] FDA Start: 07-17-2020 Arthroscopy, shoulder, with rotator cuff repair [place] SP,4.5 X 28 FDA Start: 07-17-2020 Arthroscopy, shoulder, with rotator cuff repair SPEEDBRIDGE 5.5MM/4.75 FDA Start: 07-17-2020 Arthroscopy, shoulder, with rotator cuff repair FIBERTAPE [id number] FDA Start: 07-17-2020 Arthroscopy, shoulder, with rotator cuff repair [place] SP,4.5 X 28 FDA Start: 07-17-2020 Arthroscopy, shoulder, with rotator cuff repair SPEEDBRIDGE 5.5MM/4.75 FDA Start: 07-17-2020 Arthroscopy, shoulder, with rotator cuff repair FIBERTAPE [id number] FDA Start: 07-17-2020 Arthroscopy, shoulder, with rotator cuff repair [place] SP,4.5 X 28 FDA Start: 07-17-2020 Arthroscopy, shoulder, with rotator cuff repair SPEED[place]IDGE 5.5MM/4.75 FDA Start: 07-17-2020 Arthroscopy, shoulder, with rotator cuff repair FIBERTAPE [id number] FDA Start: 07-17-2020 Arthroscopy, shoulder, with rotator cuff repair P[place] SP,4.5 X 28 FDA Start: 07-17-2020 Arthroscopy, shoulder, with rotator cuff repair SPEED[place]GE 5.5MM/4.75 FDA Start: 07-17-2020 Arthroscopy, shoulder, with rotator cuff repair FIBERTAPE [id number] FDA Start: 07-17-2020 Arthroscopy, shoulder, with rotator cuff repair P[place] SP,4.5 X 28 FDA Start: 07-17-2020 Arthroscopy, shoulder, with rotator cuff repair SPEEDBRIDGE 5.5MM/4.75 FDA Start: 07-17-2020 Arthroscopy, shoulder, with rotator cuff repair FIBERTAPE [id number] FDA Start: 07-17-2020 Arthroscopy, shoulder, with rotator cuff repair PUS[place]OCK SP,4.5 X 28 FDA Start: 07-17-2020 Arthroscopy, shoulder, with rotator cuff repair SPEED[place]IDGE 5.5MM/4.75 FDA Start: 07-17-2020 Arthroscopy, shoulder, with rotator cuff repair FIBERTAPE [id number] FDA Start: 07-17-2020 Arthroscopy, shoulder, with rotator cuff repair PUS[place]OCK SP,4.5 X 28 FDA Start: 07-17-2020 Arthroscopy, shoulder, with rotator cuff repair SPEED[place]IDGE 5.5MM/4.75 FDA Start: 07-17-2020 Arthroscopy, shoulder, with rotator cuff repair FIBERTAPE [id number] FDA Start: 07-17-2020 Arthroscopy, shoulder, with rotator cuff repair PUSHLOCK SP,4.5 X 28 FDA Start: 07-17-2020 Arthroscopy, shoulder, with rotator cuff repair SPEEDBRIDGE 5.5MM/4.75 FDA Start: 07-17-2020 Arthroscopy, shoulder, with rotator cuff repair FIBERTAPE [id number] FDA Start: 07-17-2020 Arthroscopy, shoulder, with rotator cuff repair PUSHLOCK SP,4.5 X 28 FDA Start: 07-17-2020 Arthroscopy, shoulder, with rotator cuff repair SPEEDBR[place]GE 5.5MM/4.75 FDA Start: 07-17-2020 Goals Date Patient Goal Desired Activity /State Mental Status Date Assessment Result Facility 06-09-2023 Cognitive function Voice/Name [facility] Work Phone: 12-30-2021 Cognitive function Voice/Name [facility] Work Phone: Discharge summary 06-09-2023 Note Date & Type Note Facility 06-09-2023 Discharge summary Note Date/Time June 09, 2023 10:50am [facility] Medical Records Department [address] [place] [address] Instructions for Home/Discharge Instructions 06/09/23 1049 MR#: [id number] Acct: [id number] Name: ALAYNA JARRELL Rep #:[id number] : 1955 68 From: Cyrus Nolasco DO PCP: Dr. Jessie Talley MD Status:REG S DC Discharge Instructions Diet Discharge Diet: No restrictions Dressing / Incision Call your doctor if you observe: Shortness of breath and Chest pain Additional Dressing/Incision Instructions:: Ice and elevate lower extremities 2 weeks while not ambulating. Ambulation is encouraged. Weight bearing as tolerated. Use assistive devise for stability. Encourage FULL knee extension and flexion 1 time EVERY time you get up and down and MULTIPLE times per day. No showering until 72 hours after surgery. Begin showering postop day #3. Remove the dressing prior to shower and gently wash with warm water and antibacterial soap then pat dry and place abdominal pad (or plain gauze) and TEDhose over top. This is to be done daily. Do not submerge for 3 weeks. If not showering daily after the initial 72 hours then you must clean incision and change dressing daily. Do not allow animals near the incision area. Keep clean. Follow anti-coagulation recommendations as prescribed. Do not take any NSAIDs while on blood thinner. Do not take any additional narcotic pain medication other than what was prescribed on your surgery day without discussing with physician. Narcotic medication can be addictive. Do not drink alcohol while taking narcotics. Supplement narcotic prescription with acetaminophen 1000 mg 4 times a day. Start physical therapy. If you are not currently scheduled for physical therapy or you are unsure of appointment time please call office [place] to arrange. Call Dr. Nolasco with any concerns. Follow Up Care Please Follow Up With: Cyrus Nolasco DO When: 2 weeks Test Results: Test results from this visit will be discussed in further detail at your follow-up appointment, if applicable. Discharge Plan Admission Primary Reason for Your Visit: Left total knee arthroplasty Attending Provider: Cyrus Nolasco Primary Care Provider: Jessie Talley [employer] Providers: Orion Nicholson Discharge Orders/Prescriptions Prescriptions: New acetaminophen [acetaminophen] 500 mg tablet 1,000 mg PO Q6H PRN Qty: 100 0RF Eliquis 2.5 mg tablet 2.5 mg PO BID Qty: 30 0RF Rx Instructions: Begin morning after surgery oxycodone 5 mg tablet 5 - 10 mg PO Q4H PRN (Reason: pain) 7 Days Qty: 60 0RF cephalexin [cephalexin] 500 mg capsule 2,000 mg PO Q8 Qty: 8 0RF Rx Instructions: take 4 tabs at 9:00 pm and 4 tabs after 5 am when you wake up Continued pantoprazole [Protonix] 40 MG tablet 40 mg PO BID loperamide 2 mg capsule 2 mg PO DAILY vilazodone 40 mg tablet 40 mg PO DAILY Patient Comments: take 1 tablet by mouth once daily cholecalciferol (vitamin D3) [Vitamin D3] 25 mcg (1,000 unit) capsule 25 mcg PO DAILY lisinopril 20 mg tablet 20 mg PO DAILY Patient Comments: take 1 tablet by mouth daily Referrals / Follow Up: Jessie Talley Chi, MD [Primary Care Provider] - Disposition Disposition (needs filled in before D/C Order can be placed): Home, Self Care 06/09/23 1057<Electronically signed by Cyrus Nolasco DO>Cyrus Nolasco DO CC: Dr. Orion Nicholson MD; Dr. Jesise Talley MD ~ Signed [facility] Work Phone: Procedure note 06-09-2023 Note Date & Type Note Facility 06-09-2023 Procedure note [facility] History and physical note 06-09-2023 Note Date & Type Note Facility 06-09-2023 History and physi deborah note Note Date/Time June 09, 2023 8:32am [facility] Medical Records Department [address] [place] [address] History & Physical Exam 06/09/23 0831 MR#: [id number] Acct: [id number] Name: ALAYNA JARRELL Rep #:[id number] : 1955 68 From: Cyrus Nolasco DO PCP: Dr. Jessie Talley MD Status:REG S DC Location: [place] [address]- History and Physical Date of Admission: 06/09/23 [facility] [address] [place] [address] OFFICE VISIT Date of Service: 04/06/23 MR#: [id number] Acct: [id number] Name: ALAYNA JARRELL Rep #: [id number] : 1955 Provider: Dr. Cyrus Nolasco DO Age/Sex: 68/F Location: [facility] Status: Signed Intake Vital Signs 02/02/2314:35 04/06/2412:05 Height 5 ft 8 in 5 ft 8 in Weight: 252 lb 2 oz BMI 38.3 Intake Visit Reasons: left knee Is patient in pain?: Yes Allergies cat dander Allergy (Verified 04/06/23 13:09) Eye Swelling, sneezingSulfa (Sulfonamide Antibiotics) Adverse Reaction (Severe, Verified 04/06/23 13:09) itching Medications lisinopril 20 mg-hydrochlorothiazide 12.5 mg tablet 1 tablet PO DAILY 01/04/14 [History Confirmed 04/06/23] pantoprazole 40 mg tablet,delayed release (Protonix) 40 mg PO DAILY 01/04/14 [History Confirmed 04/06/23] citalopram 20 mg tablet 1 tablet PO DAILY 06/06/20 [History Confirmed 04/06/23] loperamide 2 mg capsule 2 mg PO DAILY 07/12/20 [History Confirmed 04/06/23] ferrous sulfate-vitamin C ER 65 mg-150 mg capsule,extended release 1 cap PO .every other day 10/10/20 [History Confirmed 04/06/23] [facility] Medical History (Updated 04/06/23 @ 13:[address] Cyrus Nolasco DO) Acute medial meniscal injury of left knee Alcohol use Anxiety Arthritis Bladder disease Cancer CPAP (continuous positive airway pressure) dependence Depression Easy bruising GERD (gastroesophageal reflux disease) GI bleed Hiatal hernia History of stress test HTN (hypertension) Injury of head and neck Leg cramps Low iron Non-smoker Post-menopausal Primary osteoarthritis of left knee Restless legs Ulcer Wears contact lenses Wears glasses Wears partial dentures Surgical History History of cholecystectomy Hx of hysterectomy Hx of knee surgery Hx of shoulder surgery Social History Smoking Status: Never smoker HPI left knee Details: This documentation accurately reflects the service provided and the decisions made by me, Dr. Cyrus Nolasco DO 04/06/23 1306. Part of today?s visit was documented by Princess Weinstein atc, acting as scribe. ALAYNA JARRELL is a 68 year old F here today for a followup on her left knee. Patient notes that she has had had pain since 01/01/23. She states that she was setting up Halloween decorations and when she stood up, she twisted and felt a snap. Patient complains of pain over her entire knee. Patient notes that she hasa snapping which is painful. Patient has knee instability. She has increased pain with ambulation. She has relief with complete rest. Her pain is affecting her ADLS. She states that she has swelling with activities. Patient denies any physical therapy. She had a steroid injection by her PCP which was not helpful. She had an MRI which is here for review. Ortho Exam General General: Yes no acute distress Neurologic: Yes alert and Yes oriented x3 Psychologic: Yes reasonable and appropriate Right Knee Patella Translation: 1 Left Knee Skin/Wound: Yes CDI, No ecchymosis, No erythema and No swelling Knee ROM: Yes ROM-Extension -20 to 0 (-3) and Yes ROM-Flexion 0-140 (112) Examination: Yes med jt line tenderness, Yes Lat jt line tenderness and No TTP Pes Anserine Stability: NML: Anterior Drawer, NML: Posterior Drawer, NML: Valgus 0, NML: Valgus 30 (2mm medial gapping), NML: Varus 0 and NML: Varus 30 Patella Translation: 1 KNEE: 5/5 pulses. no infections. Head: Normocephalic Atraumatic Chest: symmetrical rise, non-labored breathing, no audible wheeze Abdomen: no guarding, non-rigid Supplemental Info 03/31/2023 MRI left knee [facility] report: Complete radial tear of the medial meniscus extending from the periphery to the intermargin in the posteriorhorn the medial femoral condyle does demonstrate a large area predominantly high-grade greater than 50% cartilage loss or full-thickness cartilage loss the medial tibial plateau demonstrates moderate size area predominantly high-grade greater than 50% cartilage loss lateral femoral condyle demonstrates partial-thickness cartilage loss and small areas as well as the lateral tibial plateau the patella does demonstrate large areas of predominantly high-grade greater than 50% cartilage loss and fissuring. The trochlea demonstrate small areas of partial-thickness cartilage loss there is small subchondral insufficiency fracture of the medial tibial plateau with surrounding edema moderate joint effusion 01/19/2023 x-ray left knee: Mild spurring noted of the medial compartment with possible early joint space narrowing on the notch view there is more definitive spurring noted of the medial femoral condyle medial tibial plateau and tibial spines, of note there is no patellofemoral view Coding Level of Care Code Off vis,est,level 3 Diagnoses Primary osteoarthritis of left knee M17.12 Acute medial meniscal injury of left knee, subsequent encounter S83.8X2D Encounter type: subsequent encounter Assessment and Plan Assessment and Plan (1) Primary osteoarthritis of left knee: Status: Acute (2) Acute medial meniscal injury of left knee: Status: Acute Qualifiers: Encounter type: subsequent encounter Qualified Code(s): S83.8X2D - Sprain of other specified parts of left knee, subsequent encounter Plan Spoke with the patient about the anatomy of the knee and etiology of her pain. Spoke with her about having a large meniscus tear and also have significant cartilage loss particularly medial and patellofemoral. She has options- steroid injection, viscosupplementation injection, physical therapy, bracing, total kneearthroplasty or a knee arthroscopy. Explained due to the amount of cartilage missing, the arthroscopy might not be helpful. The definitive surgery is a totalknee arthroplasty. She would like to proceed with a total knee arthroplasty. Spoke with her about the benefits, risks and procedure. She is not able to have a knee replacement for 3 months after her most recent injection. Spoke with her about the risk of infection, blood clot although she will be on a blood thinner post op. She will walk immediately after surgery. She will also wear compressionstockings. Spoke with her about the risk of stiffness due to current stiffness preop. She will do formal physical therapy post op. Patient will take narcotics post op. Spoke with the patient about iovera to help with post op, incisional pain post op. She is unable to take NSAIDs 7 days before and 2 weeks post op. Spoke with the patient about the lengthy time it may take to heal and she will likely feel better after 3 months. She will need to take an antibiotic for 1 year post op with any dental work. Recommended she get her filling filled prior to surgery. Patient will need a CT scan for the makoplasty. Patient might have asmall area of numbness over her lateral knee. Patient might have a mechanical feel to her knee. She will have her surgery as same day. Risks, benefits and alternatives of surgery reviewed including but not limited to bleeding, infection, nerve, artery and/or tissue damage, fracture, VTE, mechanical feel of the knee, continued pain, stiffness and expected post-operative course. Tentative surgery date May 05, 2023 same-day surgery will need CT and medical clearance Follow up for iovera or 2 week post op or sooner if pain, swelling, numbness or associated symptoms, or concerns develop. All questions answered. Patient in agreement of plan. 04/06/23 1354 <Electronically signed by Cyrus Nolasco DO> Date Cyrus Faith Signature: Date (if applicable) CC: ~ I have examined the patient and the H&P has been reviewed. There are no clinicalchanges since date of exam. 06/09/23 0832 <Electronically signed by Cyrus Nolasco DO> Cosigner Signature (if applicable): CC: Dr. Cyrus Nolasco DO; Dr. Jessie Talley MD~ Signed [facility] Work Phone: Progress note 03-31-2023 Note Date & Type Note Facility 03-31-2023 Note HNO ID: [id number] Author: SKIP MURPHY RT(R) Service: ? Author Type: Technologist Type: Progress Notes Filed: 03/31/2023 15:13 Note Text: Radiology Service Progress Note PATIENT NAME: Alayna Jarrell DATE OF SERVICE: March 31, 2023 TIME: [...] RT Salena(R) March 31, 2023 3:12 PM [facility] Evaluation note Note Date & Type Note Facility Evaluation note No assessment information availa ble [facility] Work Phone: Evaluation note Note Date & Type Note Facility Evaluation note Diagnosis Encounter for screening mammogram for breast cancer documented in this encounter [facility] Evaluation note Note Date & Type Note Facility Evaluation note Diagnosis Onset Date Acute medial meniscal injury of left knee acute Primary osteoarthritis of left knee acute [facility] [facility] Work Phone: Evaluation note Note Date & Type Note Facility Evaluation note Diagnosis Onset Date Acute medial meniscal injury of left knee acute Primary osteoarthritis of left knee acute Acute medial meniscal injury of left knee acute Primary osteoarthritis of left knee acute Chronic pain of left knee no neactive [facility] Work Phone: Reason for referral (narrative) Diagnostic Procedure Only (Routine) - Pending Review Note Date & Type Note Facility Reason for referral (narrati ve) Specialty Diagnoses / Procedures Referred By Melida t Referred To Contact [facility] Diagnoses Encounter for screening mammogram for breast cancer Procedures TRACIE SCREENING SCREENING MAMMOGRAPHY BI 2-VIEW BREAST INC CAD Jamarcus García MD [address] [place] [address] [facility] [address] [place] [address] Referral ID Status Reason Start Date Expiration Date Visits Requested Visits Authorized [id number] Pending Review Auto-Generat ed Referral 09/18/2021 10/18/2022 [address] [facility] Advance Directives No Advanced Directives Records Found Advance Directive Response Recorded Date/ Time Advance Directives No May 28, 2 021 3:13pm Living Will No July 12, 2020 2:03pm Power of Newspaper Carrier No July 12 2:03pm Advance Directive Response Recorded Date/ Time Advance Directives No May 28, 2 021 3:13pm Living Will No December 24 3:13pm Power of Newspaper Carrier No December 24, 2021 3:13pm Advance Directive Response Recorded Date/ Time Advance Directives No May 28, 2 021 2:13pm Living Will No December 24 2:13pm Power of Newspaper Carrier No December 24, 2021 2:13pm Advance Directive Response Recorded Date/ Time Advance Directives No January 2:35pm Living Will No February 02, 2 023 2:35pm Power of Newspaper Carrier No February 02, 2023 2:35pm Advance Directive Response Recorded Date/ Time Advance Directives No January 3:35pm Living Will No April 28, 2 024 2:46pm Power of Newspaper Carrier No April 28, 2023 2:46pm Chief Complaint and Reason for Visit Chief Complaint EXCISION LOWER LIP L ESION Chief Complaint LEFT KNEE PAIN Chief Complaint LEFT KNEE PAIN LEFT KNEE Reason for Visit Acute medial menisca l injury of left knee Primary osteoarthritis of left knee Chief Complaint LEFT KNEE PAIN LEFT KNEE RIGHT KNEE left knee Reason for Visit Acute medial menisca l injury of left knee Primary osteoarthritis of left knee Acute medial meniscal injury of left knee Primary osteoarthritis of left knee Chronic pain of left knee Chief Complaint LEFT KNEE RIGHT KNEE left knee M17.12 Unilateral primary osteoarthritis, left kne Left Total Knee Replacement Robotic Arm Assisted Left Total Knee Replacement Robotic Arm Assisted Reason for Visit Acute medial menisca l injury of left knee Primary osteoarthritis of left knee Acute medial meniscal injury of left knee Primary osteoarthritis of left knee Chronic pain of left knee Summary Purpose Family History No Family History Records FoundNo Family History Records FoundNo Family History Records FoundNo Family History Records Found Additional Source Comments Goals (unrecognized section and content) Goals may be documented in a n alternate sectionGoals may be documented in an alternate sectionGoals may be documented in an alternate sectionGoals may be documented in an alternate sectionGoals may be documented in an alternate section Source Comments (unrecognize d section and content) In the event this informatio n is protected by the Federal Confidentiality of Alcohol and Drug Abuse Patient Records regulations: The Federal rules restrict any use of the information to criminally investigate or prosecute any alcohol or drug abuse patient.[facility] Care Teams (unrecognized sec tion and content) [employer] Relationship Specialty Start Date End Date Jamarcus García MD [address] [place] [address] PCP - General Family Practice 09/03/18 Team Status: Active Member Role Status Dates Dr. Viky Booth MD Family Provider Active Dr. Jessie Talley MD Primary Care Provider Active Team Status: Inactive Member Role Status Dates Dr. Jessie Talley MD Primary Care Provider, Attending Provider Active Team Status: Inactive Member Role Status Dates Dr. Jessie Talley MD Primary Care Provi yisel, Attending Provider, Referring Provider Active Team Status: Inactive Member Role Status Dates Dr. Jessie Talley MD Primary Care Provider, Referring Provider Active GRANT Murphy Attending Provider Active Team Status: Inactive Member Role Status Dates Dr. Jessie Talley MD Primary Care Provider, Referring Provider Active Dr. Cyrus Nolasco DO Attending Provider Active Team Status: Inactive Member Role Status Dates Dr. Jessie Talley MD Primary Care Provider, Referring Provider Active Maria Del Rosario KNOWLES PA Attending Provider Active Team Status: Active Member Role Status Dates Dr. Jessie Talley MD Primary Care Provider Active Dr. Cyrus Nolasco DO Attending Provid er, Referring Provider, Other Provider Active Dr. Orion Nicholson MD Other Provider Active Team Status: Inactive Member Role Status Dates Dr. Jessie Talley MD Primary Care Provider Active Dr. Cyrus Nolasco DO Attending Provider, Referring Provider Active Dr. Orion Nicholson MD Other Provider Active Team Status: Inactive Member Role Status Dates Dr. Jessie Tlaley MD Primary Care Provider Active Dr. Cyrus Nolasco DO Attending Provider, Referring Provider Active INFORMATION SOURCE (unrecogn ized section and content) DATE CREATED AUTHOR 04/01/2023 [facility] DATE CREATED AUTHOR AUTHOR'S ORGANIZ ATION 06/19/2023 [facility] DATE CREATED AUTHOR AUTHOR'S ORGANIZ ATION 01/14/2024 [facility] DATE CREATED AUTHOR AUTHOR'S ORGANIZ ATION 06/09/2024 [facility] FOR RECORDS PERTAINING TO PATIENTS WHO ARE [...] BE BASED ON THE PRIMARY CLINICAL RECORDS. [facility]. provides no warranty or guarantee of the accuracy or completeness of information in this document.
== END | disposition home or self-care (01) ==
LOC: LAB 09:37
PROVIDERS: PCP Family Medicine Geriatric Medicine; Referring Provider Family Medicine Geriatric Medicine; Visit Provider Family Medicine Geriatric Medicine
DX: I10 Essential (primary) hypertension (principal); E78.5 Hyperlipidemia, unspecified; E55.9 Vitamin D deficiency, unspecified
CPT/HCPCS: 36415; 80053; 80061; 82306; 84443; 85025

== ENCOUNTER → 2025-03-06 | Outpatient (CLI) | payer OTHER, SELFPAY ==
[2025-03-06 10:25] LABS: Hematocrit 36.3 % (37-47); Hemoglobin 11.6 g/dL (12.0-15.0); Immature Granulocytes Count 0.020 X10^3/uL (0.0-0.0); Mean Corp Hgb Conc 32.0 g/dL (32-36); Mean Corpuscular Volume 82.7 fL (81-99); Mean Platelet Vol. 9.7 fl (6.2-12.0); NRBC Flagged by Analyzer 0 % (0-5); Platelet Count 302 K/mm3 (150-450); RBC Distribution Width CV 14.6 % (11.6-14.6); RBC Distribution Width SD 44.4 fl (35.1-43.9); Red Blood Count 4.39 M/mm3 (4.2-5.4); White Blood Count 6.0 K/mm3 (4.4-11.0)
[2025-03-06 11:32] LABS: AST(SGOT) 15 U/L (<=31); Alanine Aminotransfer ALT/SGPT 11 U/L (<=34); Albumin, Serum 4.2 g/dL (3.4-4.8); Alkaline Phosphatase 83 U/L (35-104); Anion Gap 9 (5-15); BUN 14 mg/dL (4-19); BUN/Creat Ratio 15.2 RATIO (10-20); Calcium,Total 9.6 mg/dL (7.6-11.0); Carbon Dioxide 24.2 mmol/L (21.0-32.0); Chloride 106 mmol/L (98-108); Cholesterol 213 mg/dL (<=200); Globulin 3.1 g/dL (2.2-4.2); Glucose 92 mg/dL (70-99); Low Density Lipoprotein Calc. 125 mg/dL; Potassium 4.3 mmol/L (3.3-5.1); Triglycerides 84 mg/dL; Very Low Density Lipoprotein 17 mg/dL (5-40); Vitamin D,25 Hydroxy 23.9 ng/mL (30-100); cholesterol:hdl ratio screen 2.93
[2025-03-06 18:08] LABS: Xtra Tube Kwok EXTRA TUBE
== END | disposition home or self-care (01) ==
LOC: POLAB3 10:07
PROVIDERS: PCP Family Medicine Geriatric Medicine; Visit Provider Family Medicine Geriatric Medicine
DX: E55.9 Vitamin D deficiency, unspecified (principal); E78.5 Hyperlipidemia, unspecified; I10 Essential (primary) hypertension
CPT/HCPCS: 36415; 80053; 80061; 82306; 84443; 85025